=== PATIENT | male | born 1945 | race Hispanic/Latino ===

== ENCOUNTER 2017-11-29 17:46 | Inpatient (IN) | payer BC, MEDICARE ==
[2017-11-29] MEDS ORDERED: Albuterol-Ipratrop 3 mg / 0.5 (3 ml) UD IH STA (18:13)
[2017-11-29] MEDS ORDERED: Piperacillin/Tazobact 3.375 GM in Sodium Chloride 0.9% 100 ML IVPB STA (18:16)
[2017-11-29] MEDS ORDERED: Sodium Chloride 0.9% 1,000 ML IV STA (18:17)
[2017-11-29] MEDS ORDERED: Albuterol-Ipratrop 3 mg / 0.5 (3 ml) UD ONE (18:28)
[2017-11-29] MEDS ORDERED: Piperacillin/Tazobact 3.375 gm Inj IVPB ONE (18:28)
[2017-11-29 18:49] LABS: BASO # 0.1 K/uL (0.0-0.2); BASO % 0.4 % (0.0-2.0); EOS % 0.3 % (0.0-4.0); HEMOGLOBIN 14.3 g/dL (12.0-18.0); LYMPH # 0.7 K/uL (1.0-4.3); LYMPH % 5.5 % (20.0-40.0); MEAN CELL VOLUME 91.1 fl (80.0-94.0); MEAN CORPUSCULAR HEMOGLOBIN 31.5 pg (27.0-31.0); MEAN CORPUSCULAR HGB CONC 34.5 g/dL (33.0-37.0); MEAN PLATELET VOLUME 7.5 fl (7.2-11.7); MONO # 0.7 K/uL (0.0-0.8); MONO % 5.5 % (0.0-10.0); NEUT # 11.5 K/uL (1.8-7.0); NEUT % 88.3 % (50.0-75.0); PLATELET COUNT 306 K/uL (130-400); RBC 4.56 Mil/uL (4.40-5.90); WHITE BLOOD COUNT 13.1 K/uL (4.8-10.8)
--- NOTE | 2017-11-29 18:53 | ED PDOC ---
HPI: CCC, URI, Sore Throat Time Seen by Provider: 11/29/17 18:07 Chief Complaint (Nursing): Shortness Of Breath Chief Complaint (Provider): Cough History Per: Patient History/Exam Limitations: no limitations Onset/Duration Of Symptoms: Hrs Current Symptoms Are (Timing): Still Present Associated Symptoms: Fever, Sputum Additional Complaint(s): 72 year old male with PMHx of COPD presents to the ED for an evaluation of cough onset this morning. Patient reports of productive cough with green sputum and associated symptoms of fever and shortness of breath. He denies chest pain. PMD: Ravi Torres Past Medical History Reviewed: Historical Data, Nursing Documentation, Vital Signs Vital Signs: Last Vital Signs Temp 102.7 F H 11/29/17 17:53 Pulse 115 H 11/29/17 17:53 Resp 22 11/29/17 17:53 BP 130/76 11/29/17 17:53 Pulse Ox 90 L 11/29/17 19:01 - Medical History PMH: Asthma, COPD Denies: Chronic Kidney Disease - Family History Family History: States: Hypertension - Home Medications Home Medications: Ambulatory Orders Medication Instructions Recorded Albuterol HFA [Ventolin HFA 90 1 puff IH BID PRN 09/21/15 mcg/actuation (8 g)] Budesonide/Formoterol Fumarate 1 aer IH BID PRN 09/21/15 [Symbicort 160-4.5 Mcg Inhaler] Promethazine HCl/Codeine 2 tsp PO Q4 PRN 09/21/15 [Prometh-Codein 6.25-10 mg/5 ml] Amoxicillin/Potassium Clav 1 each PO BID #10 tablet 09/29/15 [Augmentin 875-125 Tablet] Prednisone 30 mg PO DAILY #2 09/29/15 - Allergies Allergies/Adverse Reactions: Allergies Allergy/AdvReac Type Severity Reaction Status Date / Time No Known Allergies Allergy Verified 09/21/15 19:06 Review of Systems ROS Statement: Except As Marked, All Systems Reviewed And Found Negative Constitutional: Positive for: Fever Cardiovascular: Negative for: Chest Pain Respiratory: Positive for: Cough, Shortness of Breath Physical Exam - Reviewed Nursing Documentation Reviewed: Yes Vital Signs Reviewed: Yes - Physical Exam Appears: Positive for: Non-toxic, No Acute Distress Head Exam: Positive for: ATRAUMATIC, NORMAL INSPECTION, NORMOCEPHALIC Skin: Positive for: Normal Color, Warm, DRY Cardiovascular/Chest: Positive for: Regular Rate, Rhythm, Tachycardia Respiratory: Positive for: Other (Bronchitis bilateral). Negative for: Respiratory Distress Gastrointestinal/Abdominal: Positive for: Soft. Negative for: Tenderness Extremity: Positive for: Normal ROM. Negative for: Tenderness, Swelling Neurologic/Psych: Positive for: Alert, Oriented (x3). Negative for: Motor/ Sensory Deficits - Laboratory Results Result Diagrams: 11/29/17 18:37 11/29/17 18:37 - ECG O2 Sat by Pulse Oximetry: 90 (RA) Pulse Ox Interpretation: Normal Medical Decision Making Medical Decision Making: Time: 1812 Initial Plan: --VBG Shock Panel --CMP --ED Urine Dipstick --CBC w/ Differential --Chest Two Views --Duoneb 3mg/ 0.5mg (3ml) --Normal Saline 1000 mls/hr --Vancomycin Inj --Zosyn 3.375 gm --Blood Culture --Peak Flow Pre/Post --Reevaluation Scribe Attestation: Documented by Carlotta Francis, acting as a scribe for Stephane Kaur MD Provider Scribe Attestation: All medical record entries made by the Scribe were at my direction and personally dictated by me. I have reviewed the chart and agree that the record accurately reflects my personal performance of the history, physical exam, medical decision making, and the department course for this patient. I have also personally directed, reviewed, and agree with the discharge instructions and disposition. Disposition - Clinical Impression Clinical Impression: PNA (pneumonia), Sepsis - Patient ED Disposition Is Patient to be Admitted: Yes - Disposition Disposition Time: 20:00 Condition: FAIR - Pt Status Changed To: Hospital Disposition Of: Inpatient - Admit Certification Admit to Inpatient:: After my assessment, the patient will require hospitalization for at least two midnights. This is because of the severity of symptoms shown, intensity of services needed, and/or the medical risk in this patient being treated as an outpatient. - POA Present On Arrival: None
[2017-11-29 18:58] LABS: ALT/SGPT 22 U/L (21-72); AST/SGOT 33 U/L (17-59); BLOOD UREA NITROGEN 12 mg/dl (9-20); CALCIUM 8.6 mg/dL (8.4-10.2); GFR NON-AFRICAN AMERICAN > 60
[2017-11-29] MEDS ORDERED: Vancomycin 1 g Inj ONE (19:51)
[2017-11-29 20:49] LABS: BANDS 5 % (0-2); HYPOCHROMIC SLIGHT; LYMPHOCYTE 7 % (20-50); MONOCYTE 5 % (0-10); NEUTROPHIL 83 % (42-75); PLATELET ESTIMATE NORMAL (NORMAL); TOTAL CELLS COUNTED 100; TOXIC GRANULATION PRESENT
[2017-11-29] MEDS ORDERED: Sodium Chloride 3% for Inhalation 4 ML VIAL.NEB IH PRN (21:33)
[2017-11-29] MEDS ORDERED: methylPREDNISolone 30 MG in Sodium Chloride 0.9% 50 ML IVP SCH (21:45)
[2017-11-29] MEDS: Sodium Chloride 0.9% 1,000 ML IV SCH (21:53)
[2017-11-29] MEDS: MethylPREDNISolone 40 mg Vial IVP SCH (22:01)
[2017-11-30] MEDS: Piperacillin/Tazobact 3.375 GM in Sodium Chloride 0.9% 100 ML IVPB SCH ×3 (01:44→17:33)
[2017-11-30 06:05] LABS: MEAN CELL VOLUME 92.9 fl (80.0-94.0); MEAN CORPUSCULAR HGB CONC 34.5 g/dL (33.0-37.0); RBC 4.38 Mil/uL (4.40-5.90); RED CELL DISTRIBUTION WIDTH 13.4 % (11.5-14.5); WHITE BLOOD COUNT 6.3 K/uL (4.8-10.8)
[2017-11-30 06:18] LABS: LDL CHOLESTEROL 65 mg/dL (0-129)
[2017-11-30 06:24] LABS: T4 5.14 ug/dl (5.5-11.0)
[2017-11-30] MEDS: Albuterol-Ipratrop 3 mg / 0.5 (3 ml) UD INH SCH ×7 (06:26→22:59)
[2017-11-30 06:48] LABS: ALBUMIN 3.7 g/dL (3.5-5.0); ALT/SGPT 23 U/L (21-72); AST/SGOT 24 U/L (17-59); BLOOD UREA NITROGEN 10 mg/dl (9-20); CALCIUM 8.5 mg/dL (8.4-10.2); GFR NON-AFRICAN AMERICAN > 60; HDL CHOLESTEROL 41 MG/DL (30-70)
--- NOTE | 2017-11-30 08:50 | RAD ---
Date of service: 11/29/2017 HISTORY: cough COMPARISON: Portable chest 09/27/2015. TECHNIQUE: Chest PA and lateral FINDINGS: LUNGS: Cicatrization of the right apex is again appreciate with bilateral diffuse pulmonary fibrotic changes reiterated if not increased. Hyperexpansion of the left lung is again identified. Borderline medial basilar airspace disease with none seen at the right in the interval. Shift of the mediastinum toward the right is stable based gross on right apical pulmonary fibrosis. PLEURA: No significant pleural effusion identified. No pneumothorax apparent. CARDIOVASCULAR: Normal. OSSEOUS STRUCTURES: No significant abnormalities. VISUALIZED UPPER ABDOMEN: Normal. OTHER FINDINGS: None. IMPRESSION: Borderline medial basilar airspace disease left side. Gross pulmonary fibrosis likely increased with right apical cicatrization reiterated.
[2017-11-30] MEDS: MethylPREDNISolone 40 mg Vial IVP SCH ×2 (09:13→21:06)
--- NOTE | 2017-11-30 14:25 | CT ---
Date of service: 11/30/2017 PROCEDURE: CT Chest without contrast HISTORY: pneumonia COMPARISON: Chest CT with contrast 09/21/2015. TECHNIQUE: Contiguous axial images were obtained through the chest without intravenous contrast enhancement. Sagittal and coronal reconstructions were performed. Radiation dose (DLP): 431.79 mGy-cm. This CT exam was performed using one or more of the following dose reduction techniques: Automated exposure control, adjustment of the mA and/or kV according to patient size, and/or use of iterative reconstruction technique. FINDINGS: LUNGS: Extensive cystic bronchiectasis is seen at affecting the upper greater than lower lobes once again. Air-fluid levels are acute occasionally associated with cystic bronchiectasis at the bilateral lungs, most obvious in a small air-filled structure lateral to the esophagus and posterior the trachea best seen image 31 series 3. Alternative to right upper lobe cyst is the possibility of an esophageal diverticulum though this is not favored. Marked volume loss at the right upper lobe is again appreciate with a right upper lobe nearly completely destroyed by cystic bronchiectasis. Hyperinflation of the left upper lobe nearly simulates emphysema. Fibrotic changes are intermixed with this overall pattern throughout all lobes and the prior infiltrates affecting the left greater than right lower lobes appear to of largely resolved with borderline reticular changes seen at the bilateral lower lobes which may not be acute. MEDIASTINUM: Unremarkable thoracic aorta. No aneurysm. Normal sized heart. Main pulmonary artery measures 3.9 cm suggesting pulmonary artery hypertension. Clinically correlate further. No pulmonary venous congestion. No lymphadenopathy. PLEURA: No pleural fluid. No pneumothorax. BONES: No fracture. No destructive lesion. UPPER ABDOMEN: Prior cholecystectomy reiterated. OTHER FINDINGS: None. IMPRESSION: 1. Reiteration of extensive cystic bronchiectasis with upper lobe predominance potentially reflecting tuberculosis origin though there is a very broad differential diagnosis varying from etiologies such is allergic bronchopulmonary aspergillosis rheumatoid arthritis or automated processes and countless other etiologies. Clinically correlate further. Prior alveolar infiltrates appear to have resolved in the interval though limited reticular changes are seen at the bilateral lower lobes potentially reflecting atypical pneumonitis. Further clinical correlation is recommended. 2. Incidental prior cholecystectomy noted.
--- NOTE | 2017-11-30 15:57 | CP.PCM.HP ---
History of Present Illness - History of Present Illness History of Present Illness: CC: SOB. 72 y/o M, Hx of COPD, PE, NSTEMI, walk in to [facility] on 11/29/17, to be evaluated for moderate SOB, associated to sudden onset of intermittent productive cough with yellowish sputum, non bloody and fever and chills, while in the ED TMAx 102.7 . Onset AM DOA. Pt using respiratory inhalers at home with no relief. As per PT, He was hospitalized in [place] ( [place]) [place] for TB at 17 y/o and remained in the hospital x 2 years, after, 2 more years later, he was re- admitted for recurrent TB one more year, after that, he denied respiratory symptoms until 1987 that he stated having chronic Bronchitis. 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 Worsening symptoms: RUIZ. Found with chronic changes lower lobe Pneumonitis b/l lobes on CT. Aggravated factor: Exercise. Pt denied: CP, syncope, numbness, dizziness, hemoptysis, n/v/d, abdominal pain , urinary symptoms, recent travel out of [facility]. Present on Admission - Present on Admission Any Indicators Present on Admission: No Review of Systems - Constitutional Constitutional: Chills, Fever - EENT Eyes: Other (negative) Ears: Other (negative) Nose/Mouth/Throat: Other (negative) - Cardiovascular Cardiovascular: Other (negative) - Respiratory Respiratory: Cough, Dyspnea, Dyspnea on Exertion, Chest Congestion, Change in Mucous Color - Gastrointestinal Gastrointestinal: Other (negative) - Genitourinary Genitourinary: Other (negative) - Musculoskeletal Musculoskeletal: Other (negative) - Integumentary Integumentary: Other (negative) - Neurological Neurological: Other (negative) - Psychiatric Psychiatric: Other (negative) - Endocrine Endocrine: Other (negative) - Hematologic/Lymphatic Hematologic: Other (negative) Past Patient History - Infectious Disease Hx of Infectious Diseases: None - Past Medical History & Family History Past Medical History?: Yes Pertinent Family History: Unknown - Past Social History Smoking Status: Former Smoker Alcohol: None Drugs: Denies Home Situation {Lives}: Alone - CARDIAC Hx Cardiac Disorders: Yes (Hx NSTEMI) - PULMONARY Hx Respiratory Disorders: Yes Hx Asthma: Yes Hx Chronic Obstructive Pulmonary Disease (COPD): Yes Hx Pneumonia: Yes - NEUROLOGICAL Hx Neurological Disorder: No - HEENT Hx HEENT Problems: No - RENAL Hx Chronic Kidney Disease: No - ENDOCRINE/METABOLIC Hx Endocrine Disorders: No - HEMATOLOGICAL/ONCOLOGICAL Hx Blood Disorders: No - INTEGUMENTARY Hx Dermatological Problems: No - MUSCULOSKELETAL/RHEUMATOLOGICAL Hx Musculoskeletal Disorders: No Hx Falls: No - GASTROINTESTINAL Hx Gastrointestinal Disorders: No - GENITOURINARY/GYNECOLOGICAL Hx Genitourinary Disorders: No - PSYCHIATRIC Hx Psychophysiologic Disorder: No Hx Substance Use: No - SURGICAL HISTORY Hx Surgeries: No - ANESTHESIA Hx Anesthesia: No Hx Anesthesia Reactions: No Meds Allergies/Adverse Reactions: Allergies Allergy/AdvReac Type Severity Reaction Status Date / Time No Known Allergies Allergy Verified 09/21/15 19:06 Physical Exam - Constitutional Appears: No Acute Distress - Head Exam Head Exam: NORMAL INSPECTION - Eye Exam Eye Exam: PERRL - ENT Exam ENT Exam: Normal Exam - Neck Exam Neck exam: Positive for: Normal Inspection - Respiratory Exam Respiratory Exam: Decreased Breath Sounds (at bases), Rhonchi - Cardiovascular Exam Cardiovascular Exam: REGULAR RHYTHM - GI/Abdominal Exam GI & Abdominal Exam: Normal Bowel Sounds, Soft - Extremities Exam Extremities exam: Positive for: normal inspection - Back Exam Back exam: NORMAL INSPECTION - Neurological Exam Neurological exam: Alert, Oriented x3 Additional comments: No motor/sensory deficit. - Psychiatric Exam Psychiatric exam: Normal Mood - Skin Skin Exam: Warm Results - Vital Signs Recent Vital Signs: Last Vital Signs Temp 97.4 F L 11/30/17 12:12 Pulse 92 H 11/30/17 12:12 Resp 18 11/30/17 12:12 BP 117/68 11/30/17 12:12 Pulse Ox 95 11/30/17 12:12 reviewed Pam.Ritu - Labs Result Diagrams: 11/30/17 05:20 11/30/17 05:20 Labs: Laboratory Results - last 24 hr 11/29/17 11/29/17 11/30/17 18:37 18:37 05:20 WBC 13.1 H D 6.3 D RBC 4.56 4.38 L Hgb 14.3 14.0 Hct 41.5 40.7 MCV 91.1 D 92.9 MCH 31.5 H 32.0 H MCHC 34.5 34.5 RDW 14.0 13.4 Plt Count 306 D 273 MPV 7.5 Neut % (Auto) 88.3 H Lymph % (Auto) 5.5 L [place] % (Auto) 5.5 Eos % (Auto) 0.3 Baso % (Auto) 0.4 Neut # (Auto) 11.5 H Lymph # (Auto) 0.7 L [place] # (Auto) 0.7 Eos # (Auto) 0.0 Baso # (Auto) 0.1 Neutrophils % (Manual) 83 H Band Neutrophils % 5 H Lymphocytes % (Manual) 7 L Monocytes % (Manual) 5 Toxic Granulation Present Platelet Estimate Normal Hypochromasia (manual) Slight Sodium 131 L Potassium 4.6 Chloride 95 L Carbon Dioxide 31 H Anion Gap 10 BUN 12 Creatinine 0.6 L Est GFR ( Amer) > 60 Est GFR (Non-Af Amer) > 60 Random Glucose 129 H Calcium 8.6 Total Bilirubin 1.0 AST 33 ALT 22 Alkaline Phosphatase 105 Total Protein 7.9 Albumin 4.0 Globulin 3.9 Albumin/Globulin Ratio 1.0 Triglycerides Cholesterol LDL Cholesterol Direct HDL Cholesterol Thyroxine (T4) TSH 3rd Generation 11/30/17 05:20 WBC RBC Hgb Hct MCV MCH MCHC RDW Plt Count MPV Neut % (Auto) Lymph % (Auto) [place] % (Auto) Eos % (Auto) Baso % (Auto) Neut # (Auto) Lymph # (Auto) [place] # (Auto) Eos # (Auto) Baso # (Auto) Neutrophils % (Manual) Band Neutrophils % Lymphocytes % (Manual) Monocytes % (Manual) Toxic Granulation Platelet Estimate Hypochromasia (manual) Sodium 135 Potassium 4.0 Chloride 98 Carbon Dioxide 33 H Anion Gap 8 L BUN 10 Creatinine 0.6 L Est GFR ( Amer) > 60 Est GFR (Non-Af Amer) > 60 Random Glucose 154 H Calcium 8.5 Total Bilirubin 0.6 AST 24 ALT 23 Alkaline Phosphatase 88 Total Protein 7.3 Albumin 3.7 Globulin 3.6 Albumin/Globulin Ratio 1.0 Triglycerides 47 D Cholesterol 133 LDL Cholesterol Direct 65 HDL Cholesterol 41 Thyroxine (T4) 5.14 L TSH 3rd Generation 0.39 L reviewed J.P. - Imaging and Cardiology CT scan - chest Status: Report reviewed by me (J.P.) Chest x-ray Status: Report reviewed by me (J.P.) Assessment & Plan (1) PNA (pneumonia) Status: Acute Priority: High Comment: B/L lobes (2) COPD exacerbation Status: Acute Priority: High - Assessment and Plan (Free Text) Plan: F/U Blood and Sputum C-S, continue O2 NC 2L/M, Zosyn, Vanco, Duoneb, Solu- Medrol and rest of Tx, - Date & Time Date: 11/30/17 Time: 11:00
[2017-11-30] MEDS: Sodium Chloride 0.9% 1,000 ML IV SCH (17:34)
[2017-12-01] MEDS: Piperacillin/Tazobact 3.375 GM in Sodium Chloride 0.9% 100 ML IVPB SCH ×3 (00:44→16:05)
[2017-12-01] MEDS: Albuterol-Ipratrop 3 mg / 0.5 (3 ml) UD INH SCH ×6 (05:00→23:38)
[2017-12-01] MEDS: MethylPREDNISolone 40 mg Vial IVP SCH ×2 (09:00→22:41)
--- NOTE | 2017-12-01 12:51 | CP.PCM.PN ---
Subjective - Date & Time of Evaluation Date of Evaluation: 12/01/17 Time of Evaluation: 10:10 - Subjective Subjective: F/U PNA cough yellowish color , chest congestion,no SOB with O2 NC Objective - Vital Signs/Intake and Output Vital Signs (last 24 hours): Temp Pulse Resp BP Pulse Ox 98.1 F 85 18 106/56 L 97 12/01/17 12:23 12/01/17 12:23 12/01/17 12:23 12/01/17 12:23 12/01/17 12:23 - Medications Medications: Current Medications Albuterol/Ipratropium (Duoneb 3 Mg/0.5 Mg (3 Ml) Ud) 3 ml INH RQ4 [facility]IKO Last Admin: 12/01/17 11:30 Dose: 3 ml Vancomycin HCl 1 gm/ Sodium (Chloride) 250 mls @ 166.667 mls/hr IVPB Q12 KEIKO PRN Reason: Protocol Last Admin: 12/01/17 08:39 Dose: 166.667 mls/hr Piperacillin Sod/Tazobactam (Sod 3.375 gm/ Sodium Chloride) 100 mls @ 100 mls/ hr IVPB Q8 KEIKO PRN Reason: Protocol Last Admin: 12/01/17 08:37 Dose: 100 mls/hr Methylprednisolone (Solu-Medrol) 30 mg IVP Q12[facility] Last Admin: 12/01/17 09:00 Dose: 30 mg - Labs Labs: 11/30/17 05:20 11/30/17 05:20 - Constitutional Appears: No Acute Distress - Head Exam Head Exam: NORMAL INSPECTION - Eye Exam Eye Exam: PERRL - ENT Exam ENT Exam: Normal Exam - Neck Exam Neck Exam: Normal Inspection - Respiratory Exam Respiratory Exam: Decreased Breath Sounds (at bases), Rhonchi - Cardiovascular Exam Cardiovascular Exam: REGULAR RHYTHM - GI/Abdominal Exam GI & Abdominal Exam: Soft, Normal Bowel Sounds - Extremities Exam Extremities Exam: Normal Inspection - Back Exam Back Exam: NORMAL INSPECTION - Neurological Exam Neurological Exam: Alert, Oriented x3 Additional comments: No motor/sensory deficit. - Psychiatric Exam Psychiatric exam: Normal Mood - Skin Skin Exam: Warm Assessment and Plan (1) PNA (pneumonia) Status: Acute (2) COPD exacerbation Status: Acute
--- NOTE | 2017-12-01 14:04 | PQF ---
PROVIDER RESPONSE TEXT: Provider was unable to determine a response for this query. REVIEWER QUERY TEXT: Pneumonia Specificity Pneumonia is documented in the Medical Record. Please specify the type of pneumonia and the causative organism (includes probable or suspected) if known: Such as: Type: -- Aspiration pneumonia (please also specify the aspirate) -- Bacterial (please document suspected or probable organism) -- Bronchopneumonia (please document suspected or probable organism) -- Interstitial pneumonia -- Organizing pneumonia / BOOP -- RSV -- Tuberculosis, pulmonary -- Viral -- Other, please specify WBC:13.1->6.3 left shift: Band 5 ER: V/S record: Temp: 102.7Pulse 115 Respirations: 22 patient reports of productive cough with green sputum and associated symptoms of fever and shortness of breath. Cardiovascular/Chest: Positive for::--Tachycardia O2 Sat by Pulse Oximetry: 90 (RA) Clinical Impression: PNA (pneumonia), Sepsis POA: None Admission order: Admission dx.: Pneumonia, Sepsis, COPD H and P: fever and chills, while in the ED TMAx 102.7: patient reports a . Hx of. TB (1) PNA (pneumonia) Status: Acute Priority: High Comment: B/L lobes (2) COPD exacerbation Status: Acute Priority: High Plan: F/U Blood and Sputum C-S, continue O2 NC 2L/M, Zosyn, Vanco, Duoneb, Solu-Medrol and rest of Tx The patient's Clinical Indicators include: xx Query created by: Xin Doan on 12/01/2017 10:03 AM Electronically signed by: Ravi Torres MD 12/01/2017 2:01 PM
--- NOTE | 2017-12-01 14:04 | PQF ---
PROVIDER RESPONSE TEXT: Sepsis ruled out REVIEWER QUERY TEXT: Conflicting Documentation Clarification A single mention of Sepsis appears in the record. Please document if the condition is: -- Confirmed and current -- Confirmed, treated and resolved -- Ruled out -- Other, please specify WBC:13.1->6.3 left shift: Band 5 ER: V/S record: Temp: 102.7Pulse 115 Respirations: 22 patient reports of productive cough with green sputum and associated symptoms of fever and shortness of breath. Cardiovascular/Chest: Positive for::--Tachycardia O2 Sat by Pulse Oximetry: 90 (RA) Clinical Impression: PNA (pneumonia), Sepsis POA: None Admission order: Admission dx.: Pneumonia, Sepsis, COPD H and P: fever and chills, while in the ED TMAx 102.7: as per patient: Hx. TB (1) PNA (pneumonia) Status: Acute Priority: High Comment: B/L lobes (2) COPD exacerbation Status: Acute Priority: High Plan: F/U Blood and Sputum C-S, continue O2 NC 2L/M, Zosyn, Vanco, Duoneb, Solu-Medrol and rest of Tx , The patient's Clinical Indicators include: xx Query created by: Xin Doan on 12/01/2017 9:59 AM Electronically signed by: Ravi Torres MD 12/01/2017 2:01 PM
[2017-12-02] MEDS: Piperacillin/Tazobact 3.375 GM in Sodium Chloride 0.9% 100 ML IVPB SCH ×3 (00:18→16:42)
[2017-12-02] MEDS: Albuterol-Ipratrop 3 mg / 0.5 (3 ml) UD INH SCH ×6 (05:11→23:11)
[2017-12-02] MEDS: MethylPREDNISolone 40 mg Vial IVP SCH ×2 (10:08→21:31)
--- NOTE | 2017-12-02 16:56 | CP.PCM.PN ---
Subjective - Date & Time of Evaluation Date of Evaluation: 12/02/17 Time of Evaluation: 15:40 - Subjective Subjective: F/U PNA less chest congestion, less cough , yellowish phlegms , no SOB Objective - Vital Signs/Intake and Output Vital Signs (last 24 hours): Temp Pulse Resp BP Pulse Ox 98.1 F 87 20 130/76 97 12/02/17 15:58 12/02/17 15:58 12/02/17 15:58 12/02/17 15:58 12/02/17 15:58 - Medications Medications: Current Medications Albuterol/Ipratropium (Duoneb 3 Mg/0.5 Mg (3 Ml) Ud) 3 ml INH RQ4 [facility] Last Admin: 12/02/17 15:08 Dose: 3 ml Vancomycin HCl 1 gm/ Sodium (Chloride) 250 mls @ 166.667 mls/hr IVPB Q12 [facility]IKO PRN Reason: Protocol Last Admin: 12/02/17 10:08 Dose: 166.667 mls/hr Piperacillin Sod/Tazobactam (Sod 3.375 gm/ Sodium Chloride) 100 mls @ 100 mls/ hr IVPB Q8 KEIKO PRN Reason: Protocol Last Admin: 12/02/17 16:42 Dose: 100 mls/hr Lactulose (Enulose) 20 gm PO DAILY PRN PRN Reason: Constipation Methylprednisolone (Solu-Medrol) 30 mg IVP Q12H [facility] Last Admin: 12/02/17 10:08 Dose: 30 mg - Labs Labs: 11/30/17 05:20 11/30/17 05:20 - Constitutional Appears: No Acute Distress - Head Exam Head Exam: NORMAL INSPECTION - Eye Exam Eye Exam: PERRL - ENT Exam ENT Exam: Normal Exam - Neck Exam Neck Exam: Normal Inspection - Respiratory Exam Respiratory Exam: Decreased Breath Sounds (at bases), Rhonchi (scattered) - Cardiovascular Exam Cardiovascular Exam: REGULAR RHYTHM - GI/Abdominal Exam GI & Abdominal Exam: Soft, Normal Bowel Sounds - Extremities Exam Extremities Exam: Normal Inspection - Back Exam Back Exam: NORMAL INSPECTION - Neurological Exam Neurological Exam: Alert, Awake, Oriented x3. absent: Motor Sensory Deficit - Psychiatric Exam Psychiatric exam: Normal Mood - Skin Skin Exam: Warm Assessment and Plan (1) PNA (pneumonia) Status: Acute (2) COPD exacerbation Status: Acute
[2017-12-03] MEDS: Piperacillin/Tazobact 3.375 GM in Sodium Chloride 0.9% 100 ML IVPB SCH ×3 (00:48→17:05)
[2017-12-03] MEDS: Albuterol-Ipratrop 3 mg / 0.5 (3 ml) UD INH SCH ×6 (05:12→23:23)
--- NOTE | 2017-12-03 08:19 | CARD ---
APPROVED REPORT Date of service: 12/02/2017 EKG Measurement Heart [id number] <Conclusion> Normal sinus rhythm Possible Left atrial enlargement Borderline ECG
[2017-12-03] MEDS: MethylPREDNISolone 40 mg Vial IVP SCH ×2 (09:04→21:26)
--- NOTE | 2017-12-03 18:51 | CP.PCM.PN ---
Subjective - Date & Time of Evaluation Date of Evaluation: 12/03/17 Time of Evaluation: 13:30 - Subjective Subjective: less chest congestion and cough with scanty yellowish flegm Objective - Vital Signs/Intake and Output Vital Signs (last 24 hours): Temp Pulse Resp BP Pulse Ox 97.9 F 87 20 124/71 96 12/03/17 15:40 12/03/17 15:40 12/03/17 15:40 12/03/17 15:40 12/03/17 15:40 Intake and Output: 12/03/17 12/03/17 06:59 18:59 Intake Total 1650 Balance 1650 - Medications Medications: Current Medications Albuterol/Ipratropium (Duoneb 3 Mg/0.5 Mg (3 Ml) Ud) 3 ml INH RQ4 [facility] Last Admin: 12/03/17 15:27 Dose: 3 ml Piperacillin Sod/Tazobactam (Sod 3.375 gm/ Sodium Chloride) 100 mls @ 100 mls/ hr IVPB Q8 [facility]IKO PRN Reason: Protocol Last Admin: 12/03/17 17:05 Dose: 100 mls/hr Lactulose (Enulose) 20 gm PO DAILY PRN PRN Reason: Constipation Last Admin: 12/02/17 18:21 Dose: 20 gm Methylprednisolone (Solu-Medrol) 30 mg IVP Q12H [facility] Last Admin: 12/03/17 09:04 Dose: 30 mg - Labs Labs: 11/30/17 05:20 11/30/17 05:20 - Constitutional Appears: No Acute Distress - Head Exam Head Exam: NORMAL INSPECTION - Eye Exam Eye Exam: PERRL - ENT Exam ENT Exam: Normal Exam - Neck Exam Neck Exam: Normal Inspection - Respiratory Exam Respiratory Exam: Decreased Breath Sounds (at bases), Wheezes (scattere) - Cardiovascular Exam Cardiovascular Exam: REGULAR RHYTHM - GI/Abdominal Exam GI & Abdominal Exam: Soft, Normal Bowel Sounds - Extremities Exam Extremities Exam: Normal Inspection - Back Exam Back Exam: NORMAL INSPECTION - Neurological Exam Neurological Exam: Alert, CN II-XII Intact, Oriented x3. absent: Motor Sensory Deficit - Psychiatric Exam Psychiatric exam: Normal Affect, Normal Mood - Skin Skin Exam: Warm Assessment and Plan (1) PNA (pneumonia) Status: Acute (2) COPD exacerbation Status: Acute - Assessment and Plan (Free Text) Plan: Sputum G (neg) rods, f/u Sensitivity continue Zosyn, DuoNeb, SoluMedrol
[2017-12-04] MEDS: Piperacillin/Tazobact 3.375 GM in Sodium Chloride 0.9% 100 ML IVPB SCH ×3 (00:58→17:08)
[2017-12-04] MEDS: Albuterol-Ipratrop 3 mg / 0.5 (3 ml) UD INH SCH ×6 (05:40→23:26)
[2017-12-04] MEDS: MethylPREDNISolone 40 mg Vial IVP SCH ×2 (09:28→21:00)
--- NOTE | 2017-12-04 15:57 | CARD ---
APPROVED REPORT Date of service: 12/04/2017 EXAM: Two-dimensional and M-mode echocardiogram with Doppler and color Doppler. Other Information Quality : FairRhythm : NSR Technically limited study due to COPD INDICATION Abnormal EKG/Arrhythmia COPD 2D DIMENSIONS IVSd1.10 (0.7-1.1cm)LVDd3.66 (3.9-5.9cm) PWd1.10 (0.7-1.1cm)IVSs1.33 (0.8-1.2cm) LVDs2.70 (2.5-4.0cm)FS (%) 26.3 % PWs1.38 (0.8-1.2cm) M-Mode DIMENSIONS Left Atrium (MM)2.81 (2.5-4.0cm)IVSd1.10 (0.7-1.1cm) Aortic Root3.09 (2.2-3.7cm)LVDd4.33 (4.0-5.6cm) Aortic Cusp Exc.1.82 (1.5-2.0cm)PWd1.13 (0.7-1.1cm) IVSs2.12 cmFS (%) 41 % LVDs2.54 (2.0-3.8cm)PWs1.57 cm Aortic Valve AoV Peak Xmajxrgp842.2cm/sAoV VTI25.3cmAO Peak GR.9mmHg LVOT Peak Drfbtgku182.3cm/sLVOT VTI26.31cmAO Mean GR.4mmHg Mitral Valve MV E Gaxzlqsi57.4cm/sMV DECEL [id number] A Rjlvffgf07.8cm/s MV DEL55bkV/A ratio0.8MVA (PHT)2.60cm2 TDI Lateral E' Peak V7.17cm/sMedial E' Peak V6.27cm/sE/Lateral E'9.5 E/Medial E'10.9 LEFT VENTRICLE The left ventricle is normal size. There is normal left ventricular wall thickness. The left ventricular systolic function is normal. The estimated ejection fraction is 60-65% No regional wall motion abnormalities noted.. Transmitral Doppler flow pattern is Grade I-abnormal relaxation pattern. No left ventricle thrombus noted on this study. There is no ventricular septal defect visualized. There is no mass noted in the left ventricle. RIGHT VENTRICLE The right ventricle is normal size. There is normal right ventricular wall thickness. The right ventricular systolic function is normal. ATRIA The left atrium size is normal. The right atrium size is normal. The interatrial septum is intact with no evidence for an atrial septal defect. AORTIC VALVE The aortic valve is normal in structure. No aortic regurgitation is present. There is no aortic valvular stenosis. MITRAL VALVE The mitral valve is normal in structure. There is no mitral valve stenosis. There is no mitral valve regurgitation noted. TRICUSPID VALVE The tricuspid valve is normal in structure. There is no tricuspid valve regurgitation noted. PULMONIC VALVE The pulmonary valve is normal in structure. There is no pulmonic valvular regurgitation. GREAT VESSELS The aortic root is normal in size. The ascending aorta is normal in size. The pulmonary artery is normal. The IVC is normal in size and collapses >50% with inspiration. PERICARDIAL EFFUSION There is no pericardial effusion. <Conclusion> Normal LV systolic function wtih doppler hemodynamics consistent with abnormal relaxation Otherwise normal transthoracic echocardiogram The estimated ejection fraction is 60-65%
--- NOTE | 2017-12-04 16:00 | CP.PCM.PN ---
Subjective - Date & Time of Evaluation Date of Evaluation: 12/04/17 Time of Evaluation: 13:30 - Subjective Subjective: F/U PNA cough, chest congestion improved Objective - Vital Signs/Intake and Output Vital Signs (last 24 hours): Temp Pulse Resp BP Pulse Ox 98.2 F 79 20 132/82 97 12/04/17 15:40 12/04/17 15:40 12/04/17 15:40 12/04/17 15:40 12/04/17 15:40 - Medications Medications: Current Medications Albuterol/Ipratropium (Duoneb 3 Mg/0.5 Mg (3 Ml) Ud) 3 ml INH RQ4 [facility] Last Admin: 12/04/17 15:50 Dose: 3 ml Piperacillin Sod/Tazobactam (Sod 3.375 gm/ Sodium Chloride) 100 mls @ 100 mls/ hr IVPB Q8 [facility] PRN Reason: Protocol Last Admin: 12/04/17 08:47 Dose: 100 mls/hr Lactulose (Enulose) 20 gm PO DAILY PRN PRN Reason: Constipation Last Admin: 12/04/17 14:25 Dose: 20 gm Methylprednisolone (Solu-Medrol) 30 mg IVP Q12H [facility] Last Admin: 12/04/17 09:28 Dose: 30 mg Promethazine HCl (Phenergan Syrup) 12.5 mg PO Q6 [facility] - Labs Labs: 11/30/17 05:20 11/30/17 05:20 - Constitutional Appears: No Acute Distress - Head Exam Head Exam: NORMAL INSPECTION - Eye Exam Eye Exam: PERRL - ENT Exam ENT Exam: Normal Exam - Neck Exam Neck Exam: Normal Inspection - Respiratory Exam Respiratory Exam: Decreased Breath Sounds (at bases), Rhonchi - Cardiovascular Exam Cardiovascular Exam: REGULAR RHYTHM - GI/Abdominal Exam GI & Abdominal Exam: Soft, Normal Bowel Sounds - Extremities Exam Extremities Exam: Normal Inspection - Back Exam Back Exam: NORMAL INSPECTION - Neurological Exam Neurological Exam: Alert, Oriented x3. absent: Motor Sensory Deficit - Psychiatric Exam Psychiatric exam: Normal Mood - Skin Skin Exam: Warm Assessment and Plan (1) PNA (pneumonia) Status: Acute (2) COPD exacerbation Status: Acute - Assessment and Plan (Free Text) Plan: Continue DuoNeb, SoluMedrol, Zosyn and rest of treatment
[2017-12-04] MEDS: Promethazine 12.5 mg/10 ml Syrup PO SCH ×3 (17:09→21:00)
[2017-12-05] MEDS: Piperacillin/Tazobact 3.375 GM in Sodium Chloride 0.9% 100 ML IVPB SCH ×2 (00:18→08:38)
[2017-12-05] MEDS: Promethazine 12.5 mg/10 ml Syrup PO SCH ×4 (03:52→21:08)
[2017-12-05] MEDS: Albuterol-Ipratrop 3 mg / 0.5 (3 ml) UD INH SCH ×6 (04:19→23:45)
[2017-12-05] MEDS: MethylPREDNISolone 40 mg Vial IVP SCH ×2 (09:12→21:09)
--- NOTE | 2017-12-05 12:46 | CP.PCM.PCO ---
Assessment & Plan - Assessment and Plan (Free Text) Assessment: Patient seen and examined Sputum cx + for Pseudomonas Aureginosa, sensitive to IV Cefepime Discussed with Dr Torres will need iv cefepime for 7 days Referred to TCU for continuation of treatment.
[2017-12-05] MEDS: Cefepime 1 GM in Sodium Chloride 0.9% 100 ML IVPB SCH ×2 (13:13→21:07)
--- NOTE | 2017-12-05 17:56 | CP.PCM.PN ---
Subjective - Date & Time of Evaluation Date of Evaluation: 12/05/17 Time of Evaluation: 13:00 - Subjective Subjective: F/U PNA cough with scanty yellowish flegm , less chest congestion, no SOB Objective - Vital Signs/Intake and Output Vital Signs (last 24 hours): Temp Pulse Resp BP Pulse Ox 97.7 F 96 H 20 131/75 95 12/05/17 16:30 12/05/17 16:30 12/05/17 16:30 12/05/17 16:30 12/05/17 16:30 - Medications Medications: Current Medications Albuterol/Ipratropium (Duoneb 3 Mg/0.5 Mg (3 Ml) Ud) 3 ml INH RQ4 [facility] Last Admin: 12/05/17 15:40 Dose: 3 ml Cefepime HCl 1 gm/ Sodium (Chloride) 100 mls @ 100 mls/hr IVPB Q12 [facility] PRN Reason: Protocol Last Admin: 12/05/17 13:13 Dose: 100 mls/hr Lactulose (Enulose) 20 gm PO DAILY PRN PRN Reason: Constipation Last Admin: 12/04/17 14:25 Dose: 20 gm Methylprednisolone (Solu-Medrol) 30 mg IVP Q12H [facility] Last Admin: 12/05/17 09:12 Dose: 30 mg Promethazine HCl (Phenergan Syrup) 12.5 mg PO Q6 [facility] Last Admin: 12/05/17 16:24 Dose: 12.5 mg - Labs Labs: 11/30/17 05:20 11/30/17 05:20 - Constitutional Appears: No Acute Distress - Head Exam Head Exam: NORMAL INSPECTION - Eye Exam Eye Exam: PERRL - ENT Exam ENT Exam: Normal Exam - Neck Exam Neck Exam: Normal Inspection - Respiratory Exam Respiratory Exam: Decreased Breath Sounds (at bases), Rhonchi - Cardiovascular Exam Cardiovascular Exam: REGULAR RHYTHM - GI/Abdominal Exam GI & Abdominal Exam: Soft, Normal Bowel Sounds - Extremities Exam Extremities Exam: Normal Inspection - Back Exam Back Exam: NORMAL INSPECTION - Neurological Exam Neurological Exam: Alert, Oriented x3. absent: Motor Sensory Deficit - Psychiatric Exam Psychiatric exam: Normal Mood - Skin Skin Exam: Warm Assessment and Plan (1) PNA (pneumonia) Status: Acute (2) COPD exacerbation Status: Acute - Assessment and Plan (Free Text) Plan: sputum Pseudomona , S to Cefepime , DC Sosyn,continue DuoNeb Solu Medrol, TCU, Cefepime IV for 8 days
[2017-12-06] MEDS: Promethazine 12.5 mg/10 ml Syrup PO SCH ×4 (04:09→21:18)
[2017-12-06] MEDS: Albuterol-Ipratrop 3 mg / 0.5 (3 ml) UD INH SCH ×6 (05:00→23:34)
[2017-12-06] MEDS: Cefepime 1 GM in Sodium Chloride 0.9% 100 ML IVPB SCH ×2 (09:07→21:17)
[2017-12-06] MEDS: MethylPREDNISolone 40 mg Vial IVP SCH ×2 (09:08→21:18)
--- NOTE | 2017-12-06 15:56 | CP.PCM.PN ---
Subjective - Date & Time of Evaluation Date of Evaluation: 12/06/17 Time of Evaluation: 11:50 - Subjective Subjective: F/U PNA cough with scanty yellowish flegm improved, chest congestion improved, no SOB Objective - Vital Signs/Intake and Output Vital Signs (last 24 hours): Temp Pulse Resp BP Pulse Ox 98.4 F 93 H 20 118/69 95 12/06/17 15:39 12/06/17 15:39 12/06/17 15:39 12/06/17 15:39 12/06/17 15:39 - Medications Medications: Current Medications Albuterol/Ipratropium (Duoneb 3 Mg/0.5 Mg (3 Ml) Ud) 3 ml INH RQ4 [facility] Last Admin: 12/06/17 15:30 Dose: 3 ml Cefepime HCl 1 gm/ Sodium (Chloride) 100 mls @ 100 mls/hr IVPB Q12 [facility] PRN Reason: Protocol Last Admin: 12/06/17 09:07 Dose: 100 mls/hr Lactulose (Enulose) 20 gm PO DAILY PRN PRN Reason: Constipation Last Admin: 12/04/17 14:25 Dose: 20 gm Methylprednisolone (Solu-Medrol) 30 mg IVP Q12H [facility] Last Admin: 12/06/17 09:08 Dose: 30 mg Promethazine HCl (Phenergan Syrup) 12.5 mg PO Q6 [facility] Last Admin: 12/06/17 09:08 Dose: 12.5 mg - Labs Labs: 11/30/17 05:20 11/30/17 05:20 - Constitutional Appears: No Acute Distress - Head Exam Head Exam: NORMAL INSPECTION - Eye Exam Eye Exam: PERRL - ENT Exam ENT Exam: Normal Exam - Neck Exam Neck Exam: Normal Inspection - Respiratory Exam Respiratory Exam: Decreased Breath Sounds (at bases), Rhonchi (scattered) - Cardiovascular Exam Cardiovascular Exam: REGULAR RHYTHM - GI/Abdominal Exam GI & Abdominal Exam: Soft, Normal Bowel Sounds - Extremities Exam Extremities Exam: Normal Inspection - Back Exam Back Exam: NORMAL INSPECTION - Neurological Exam Neurological Exam: Alert, Oriented x3. absent: Motor Sensory Deficit - Psychiatric Exam Psychiatric exam: Normal Mood - Skin Skin Exam: Warm Assessment and Plan (1) PNA (pneumonia) Status: Acute (2) COPD exacerbation Status: Acute - Assessment and Plan (Free Text) Plan: continue Cefepime, DuoNeb, SoluMedrol, ALEXIS for continue IV Antibiotic
[2017-12-07] MEDS: Albuterol-Ipratrop 3 mg / 0.5 (3 ml) UD INH SCH ×6 (04:35→23:41)
[2017-12-07] MEDS: Promethazine 12.5 mg/10 ml Syrup PO SCH ×4 (04:46→21:21)
[2017-12-07 05:42] LABS: BASO % 0.2 % (0.0-2.0); EOS % 0.1 % (0.0-4.0); HEMOGLOBIN 15.1 g/dL (12.0-18.0); LYMPH # 1.1 K/uL (1.0-4.3); LYMPH % 11.7 % (20.0-40.0); MEAN CELL VOLUME 92.6 fl (80.0-94.0); MEAN CORPUSCULAR HEMOGLOBIN 31.5 pg (27.0-31.0); MEAN PLATELET VOLUME 7.2 fl (7.2-11.7); MONO # 0.6 K/uL (0.0-0.8); MONO % 6.2 % (0.0-10.0); NEUT # 7.5 K/uL (1.8-7.0); NEUT % 81.8 % (50.0-75.0); RBC 4.81 Mil/uL (4.40-5.90); RED CELL DISTRIBUTION WIDTH 13.8 % (11.5-14.5); WHITE BLOOD COUNT 9.1 K/uL (4.8-10.8)
[2017-12-07 06:15] LABS: ALB/GLOB RATIO 0.9 (1.0-2.1); ALBUMIN 3.8 g/dL (3.5-5.0); ALT/SGPT 64 U/L (21-72); AST/SGOT 29 U/L (17-59); BLOOD UREA NITROGEN 21 mg/dl (9-20); CALCIUM 9.1 mg/dL (8.4-10.2); GFR NON-AFRICAN AMERICAN > 60
[2017-12-07] MEDS: Cefepime 1 GM in Sodium Chloride 0.9% 100 ML IVPB SCH ×2 (09:00→21:20)
[2017-12-07] MEDS: MethylPREDNISolone 40 mg Vial IVP SCH ×2 (09:02→21:22)
--- NOTE | 2017-12-07 20:29 | CP.PCM.PN ---
Subjective - Date & Time of Evaluation Date of Evaluation: 12/07/17 Time of Evaluation: 11:20 - Subjective Subjective: F/U PNA Cough improved with scanty yellowish secretion, chest congestion improved. Objective - Vital Signs/Intake and Output Vital Signs (last 24 hours): Temp Pulse Resp BP Pulse Ox 97.8 F 91 H 20 127/71 95 12/07/17 20:24 12/07/17 20:24 12/07/17 20:24 12/07/17 20:24 12/07/17 20:24 - Medications Medications: Current Medications Albuterol/Ipratropium (Duoneb 3 Mg/0.5 Mg (3 Ml) Ud) 3 ml INH RQ4 [facility] Last Admin: 12/07/17 19:05 Dose: 3 ml Cefepime HCl 1 gm/ Sodium (Chloride) 100 mls @ 100 mls/hr IVPB Q12 [facility] PRN Reason: Protocol Last Admin: 12/07/17 09:00 Dose: 100 mls/hr Lactulose (Enulose) 20 gm PO DAILY PRN PRN Reason: Constipation Last Admin: 12/04/17 14:25 Dose: 20 gm Methylprednisolone (Solu-Medrol) 30 mg IVP Q12H [facility] Last Admin: 12/07/17 09:02 Dose: 30 mg Promethazine HCl (Phenergan Syrup) 12.5 mg PO Q6 [facility] Last Admin: 12/07/17 16:41 Dose: 12.5 mg - Labs Labs: 12/07/17 04:45 12/07/17 04:45 - Constitutional Appears: No Acute Distress - Head Exam Head Exam: NORMAL INSPECTION - Eye Exam Eye Exam: PERRL - ENT Exam ENT Exam: Normal Exam - Neck Exam Neck Exam: Normal Inspection - Respiratory Exam Respiratory Exam: Decreased Breath Sounds (at bases), Rhonchi (scattered) - Cardiovascular Exam Cardiovascular Exam: REGULAR RHYTHM - GI/Abdominal Exam GI & Abdominal Exam: Soft, Normal Bowel Sounds - Extremities Exam Extremities Exam: Normal Inspection - Back Exam Back Exam: NORMAL INSPECTION - Neurological Exam Neurological Exam: Alert, Oriented x3. absent: Motor Sensory Deficit - Psychiatric Exam Psychiatric exam: Normal Mood - Skin Skin Exam: Warm Assessment and Plan (1) PNA (pneumonia) Status: Acute (2) COPD exacerbation Status: Acute - Assessment and Plan (Free Text) Plan: Continue Cefepime , Duoneb, Solu-Medrol and rest of Tx.
[2017-12-08] MEDS: Promethazine 12.5 mg/10 ml Syrup PO SCH (04:11)
[2017-12-08] MEDS: Albuterol-Ipratrop 3 mg / 0.5 (3 ml) UD INH SCH ×3 (04:55→11:56)
[2017-12-08 08:29] VITALS: RESP 20
[2017-12-08] MEDS: MethylPREDNISolone 40 mg Vial IVP SCH (10:01)
[2017-12-08] MEDS: Cefepime 1 GM in Sodium Chloride 0.9% 100 ML IVPB SCH (10:03)
[2017-12-08 12:13] VITALS: BP 114/67; PULSE 97; TEMP 98.8; O2SAT 97
--- NOTE | 2017-12-08 16:19 | CP.PCM.DIS ---
Provider - Provider Date of Admission: 11/29/17 18:17 Attending physician: Ravi Torres MD Diagnosis - Discharge Diagnosis (1) PNA (pneumonia) Status: Acute Priority: High (2) COPD exacerbation Status: Acute Priority: High Hospital Course - Lab Results Lab Results: Micro Results 11/29/17 18:37 Blood Blood Culture - Final NO GROWTH AFTER 5 DAYS 11/29/17 18:37 Blood Gram Stain - Final TEST NOT PERFORMED 11/29/17 11:15 Sputum Gram Stain - Final 11/29/17 11:15 Sputum Sputum Culture - Final Pseudomonas Aeruginosa Most Recent Lab Values WBC 9.1 K/uL (4.8-10.8) 12/07/17 04:45 RBC 4.81 Mil/uL (4.40-5.90) 12/07/17 04:45 Hgb 15.1 g/dL (12.0-18.0) 12/07/17 04:45 Hct 44.5 % (35.0-51.0) 12/07/17 04:45 MCV 92.6 fl (80.0-94.0) 12/07/17 04:45 MCH 31.5 pg (27.0-31.0) H 12/07/17 04:45 MCHC 34.0 g/dL (33.0-37.0) 12/07/17 04:45 RDW 13.8 % (11.5-14.5) 12/07/17 04:45 Plt Count 419 K/uL (130-400) H D 12/07/17 04:45 MPV 7.2 fl (7.2-11.7) 12/07/17 04:45 Neut % (Auto) 81.8 % (50.0-75.0) H 12/07/17 04:45 Lymph % (Auto) 11.7 % (20.0-40.0) L 12/07/17 04:45 Taney % (Auto) 6.2 % (0.0-10.0) 12/07/17 04:45 Eos % (Auto) 0.1 % (0.0-4.0) 12/07/17 04:45 Baso % (Auto) 0.2 % (0.0-2.0) 12/07/17 04:45 Neut # (Auto) 7.5 K/uL (1.8-7.0) H 12/07/17 04:45 Lymph # (Auto) 1.1 K/uL (1.0-4.3) 12/07/17 04:45 Taney # (Auto) 0.6 K/uL (0.0-0.8) 12/07/17 04:45 Eos # (Auto) 0.0 K/uL (0.0-0.7) 12/07/17 04:45 Baso # (Auto) 0.0 K/uL (0.0-0.2) 12/07/17 04:45 Neutrophils % (Manual) 83 % (42-75) H 11/29/17 18:37 Band Neutrophils % 5 % (0-2) H 11/29/17 18:37 Lymphocytes % (Manual) 7 % (20-50) L 11/29/17 18:37 Monocytes % (Manual) 5 % (0-10) 11/29/17 18:37 Toxic Granulation Present 11/29/17 18:37 Platelet Estimate Normal (NORMAL) 11/29/17 18:37 Hypochromasia (manual) Slight 11/29/17 18:37 Sodium 135 mmol/l (132-148) 12/07/17 04:45 Potassium 5.2 MMOL/L (3.6-5.0) H 12/07/17 04:45 Chloride 91 mmol/L (98-107) L 12/07/17 04:45 Carbon Dioxide 35 mmol/L (22-30) H 12/07/17 04:45 Anion Gap 14 (10-20) 12/07/17 04:45 BUN 21 mg/dl (9-20) H 12/07/17 04:45 Creatinine 0.6 mg/dl (0.8-1.5) L 12/07/17 04:45 Est GFR ( Amer) > 60 12/07/17 04:45 Est GFR (Non-Af Amer) > 60 12/07/17 04:45 Random Glucose 145 mg/dL (75-110) H 12/07/17 04:45 Calcium 9.1 mg/dL (8.4-10.2) 12/07/17 04:45 Magnesium 2.3 MG/DL (1.6-2.3) 12/07/17 04:45 Total Bilirubin 0.5 mg/dl (0.2-1.3) 12/07/17 04:45 AST 29 U/L (17-59) 12/07/17 04:45 ALT 64 U/L (21-72) 12/07/17 04:45 Alkaline Phosphatase 69 U/L (38-126) 12/07/17 04:45 Total Protein 7.8 G/DL (6.3-8.2) 12/07/17 04:45 Albumin 3.8 g/dL (3.5-5.0) 12/07/17 04:45 Globulin 4.0 gm/dL (2.2-3.9) H 12/07/17 04:45 Albumin/Globulin Ratio 0.9 (1.0-2.1) L 12/07/17 04:45 Triglycerides 47 mg/DL (0-149) D 11/30/17 05:20 Cholesterol 133 mg/dL (0-199) 11/30/17 05:20 LDL Cholesterol Direct 65 mg/dL (0-129) 11/30/17 05:20 HDL Cholesterol 41 MG/DL (30-70) 11/30/17 05:20 Free T4 0.91 ng/dL (0.78-2.19) 12/07/17 04:45 Thyroxine (T4) 5.14 ug/dl (5.5-11.0) L 11/30/17 05:20 Free T3 pg/mL 2.40 pg/mL (2.77-5.27) L 12/07/17 04:45 TSH 3rd Generation 0.39 mIU/ML (0.46-4.68) L 11/30/17 05:20 Discharge Exam - Head Exam Head Exam: NORMAL INSPECTION Discharge Plan - Discharge Medications Prescriptions: Cefepime 1gm in NS 100ml [Maxipime 1gm] 1 gm IVPB Q12 #14 bag - Follow Up Plan Condition: FAIR Disposition: REHAB FACILITY/REHAB UNIT Additional Instructions: pt. cleared for d/c to TCU today by cont. IV Abx cefepime 1 gm q12 and solumderol 40 mg iv q12- taper dose Referrals: Ravi Torres MD [Family Provider] -
== END 2017-12-08 14:22 | DRG 190 ==
LOC: H.ER 17:46 → SUPCPDRO 17:46 → H.ERHOLD 18:17 → H.TEL 20:48
PROVIDERS: ADMIT Internal Medicine Pulmonary Disease; ATTEND Internal Medicine Pulmonary Disease
DX: J44.0 Chronic obstructive pulmonary disease with (acute) lower respiratory infection (principal); J18.9 Pneumonia, unspecified organism; J44.1 Chronic obstructive pulmonary disease with (acute) exacerbation; I25.2 Old myocardial infarction; Z87.891 Personal history of nicotine dependence

== ENCOUNTER 2017-12-08 14:35 | Inpatient (IN) | payer BC, MEDICARE ==
[2017-12-08 14:38] VITALS: BMI 25.8
[2017-12-08] MEDS ORDERED: MethylPREDNISolone 40 mg Vial IVP SCH (15:00)
[2017-12-08] MEDS: Albuterol-Ipratrop 3 mg / 0.5 (3 ml) UD INH SCH ×2 (15:20→19:13)
[2017-12-08] MEDS: Promethazine 12.5 mg/10 ml Syrup PO SCH ×2 (16:56→21:11)
[2017-12-08] MEDS: Cefepime 1 GM in Sodium Chloride 0.9% 100 ML IVPB SCH (20:59)
[2017-12-08] MEDS ORDERED: Patient's Own Med (Cefepime 1gm In Ns 100ml [Maxipime 1gm] 1 GM) IVPB SCH (21:00)
[2017-12-08] MEDS: MethylPREDNISolone 40 mg Vial IVP SCH (21:10)
[2017-12-09] MEDS: Albuterol-Ipratrop 3 mg / 0.5 (3 ml) UD INH SCH ×6 (00:03→19:52)
[2017-12-09] MEDS: Promethazine 12.5 mg/10 ml Syrup PO SCH ×4 (05:12→21:54)
[2017-12-09] MEDS: Cefepime 1 GM in Sodium Chloride 0.9% 100 ML IVPB SCH ×2 (09:02→20:30)
[2017-12-09] MEDS: MethylPREDNISolone 40 mg Vial IVP SCH ×2 (09:03→20:29)
--- NOTE | 2017-12-09 15:25 | CP.PCM.HP ---
History of Present Illness - History of Present Illness History of Present Illness: 72 y/o M, previously admitted on 11/29/17 to [facility] for PNA, COPD Exacerbation, discharged to TCU on 12/08/17 to continue IV ABT Tx and PT,OT. Worsening symptoms: SOB on Exertion, associated to productive cough with scant yellowish sputum. Aggravated factor: Exercise. No: Fever, chills, n/v/d/ abdominal pain, urinary symptoms, bloody cough, CP, palpitations, dizziness. Present on Admission - Present on Admission Any Indicators Present on Admission: No Review of Systems - Constitutional Constitutional: Other (negative) - EENT Eyes: Other (negative) Ears: Other (negative) Nose/Mouth/Throat: Other (negative) - Cardiovascular Cardiovascular: Other (negative) - Respiratory Respiratory: Cough, Dyspnea, Dyspnea on Exertion - Gastrointestinal Gastrointestinal: Other (negative) - Genitourinary Genitourinary: Other (negative) - Musculoskeletal Musculoskeletal: Other (negative) - Integumentary Integumentary: Other (negative) - Neurological Neurological: Other (negative) - Psychiatric Psychiatric: Other (negative) - Endocrine Endocrine: Other (negative) - Hematologic/Lymphatic Hematologic: Other (negative) Past Patient History - Infectious Disease Hx of Infectious Diseases: None - Past Medical History & Family History Past Medical History?: Yes Pertinent Family History: Unknown - Past Social History Smoking Status: Former Smoker Alcohol: None Drugs: Denies Home Situation {Lives}: Alone - CARDIAC Hx Cardiac Disorders: Yes (Hx NSTEMI) Hx Heart Attack: Yes (NSTEMI) - PULMONARY Hx Respiratory Disorders: Yes Hx Asthma: Yes Hx Chronic Obstructive Pulmonary Disease (COPD): Yes Hx Pneumonia: Yes Hx Pulmonary Embolism: Yes - NEUROLOGICAL Hx Neurological Disorder: No - HEENT Hx HEENT Problems: No - RENAL Hx Chronic Kidney Disease: No - ENDOCRINE/METABOLIC Hx Endocrine Disorders: No - HEMATOLOGICAL/ONCOLOGICAL Hx Blood Disorders: No Hx AIDS: No Hx Human Immunodeficiency Virus (HIV): No - INTEGUMENTARY Hx Dermatological Problems: No - MUSCULOSKELETAL/RHEUMATOLOGICAL Hx Musculoskeletal Disorders: No Hx Falls: No - GASTROINTESTINAL Hx Gastrointestinal Disorders: No - GENITOURINARY/GYNECOLOGICAL Hx Genitourinary Disorders: No - PSYCHIATRIC Hx Psychophysiologic Disorder: No Hx Substance Use: No - SURGICAL HISTORY Hx Surgeries: No - ANESTHESIA Hx Anesthesia: No Hx Anesthesia Reactions: No Meds Allergies/Adverse Reactions: Allergies Allergy/AdvReac Type Severity Reaction Status Date / Time No Known Allergies Allergy Verified 12/08/17 14:44 Physical Exam - Constitutional Appears: No Acute Distress - Head Exam Head Exam: NORMAL INSPECTION - Eye Exam Eye Exam: PERRL - ENT Exam ENT Exam: Normal Exam - Neck Exam Neck exam: Positive for: Normal Inspection - Respiratory Exam Respiratory Exam: Decreased Breath Sounds (at bases), Rhonchi (scattered) - Cardiovascular Exam Cardiovascular Exam: REGULAR RHYTHM - GI/Abdominal Exam GI & Abdominal Exam: Normal Bowel Sounds, Soft - Extremities Exam Extremities exam: Positive for: normal inspection - Back Exam Back exam: NORMAL INSPECTION - Neurological Exam Neurological exam: Alert, Oriented x3 Additional comments: No motor/sensory deficit - Psychiatric Exam Psychiatric exam: Normal Mood - Skin Skin Exam: Warm Results - Vital Signs Recent Vital Signs: Last Vital Signs Temp 97.5 F L 12/09/17 08:04 Pulse 90 12/09/17 08:04 Resp 18 12/09/17 08:04 BP 115/75 12/09/17 08:04 Pulse Ox 97 12/09/17 08:04 reviewed J.P. - Labs Labs: reviewed J.P. Assessment & Plan (1) COPD exacerbation Status: Acute Priority: High (2) PNA (pneumonia) Status: Acute Priority: High - Assessment and Plan (Free Text) Plan: Continue O2 NC, Cefepime, Duoneb, Solu-Medrol, Phenergan and rest of Tx. - Date & Time Date: 12/09/17
[2017-12-10] MEDS: Albuterol-Ipratrop 3 mg / 0.5 (3 ml) UD INH SCH ×7 (00:20→23:14)
[2017-12-10] MEDS: Promethazine 12.5 mg/10 ml Syrup PO SCH ×4 (04:33→21:06)
[2017-12-10] MEDS: Cefepime 1 GM in Sodium Chloride 0.9% 100 ML IVPB SCH ×2 (09:29→20:52)
[2017-12-10] MEDS: MethylPREDNISolone 40 mg Vial IVP SCH ×2 (09:31→20:52)
--- NOTE | 2017-12-10 15:59 | CP.PCM.PN ---
Subjective - Date & Time of Evaluation Date of Evaluation: 12/10/17 Time of Evaluation: 12:00 - Subjective Subjective: F/U PNA Pt with occasional cough with scant yellowish sputum, no SOB, no RUIZ, at times c/o of pain of posterior chest wall. Objective - Vital Signs/Intake and Output Vital Signs (last 24 hours): Temp Pulse Resp BP Pulse Ox 97.9 F 89 18 120/72 97 12/10/17 07:53 12/10/17 07:53 12/10/17 07:53 12/10/17 07:53 12/10/17 07:53 - Medications Medications: Current Medications Albuterol/Ipratropium (Duoneb 3 Mg/0.5 Mg (3 Ml) Ud) 3 ml INH RQ4 [facility] Last Admin: 12/10/17 15:36 Dose: 3 ml Cefepime HCl 1 gm/ Sodium (Chloride) 100 mls @ 100 mls/hr IVPB Q12 [facility] Last Admin: 12/10/17 09:29 Dose: 100 mls/hr Lactulose (Enulose) 20 gm PO DAILY PRN PRN Reason: Constipation Methylprednisolone (Solu-Medrol) 30 mg IVP Q12@0900,2100 [facility] Last Admin: 12/10/17 09:31 Dose: 30 mg Promethazine HCl (Phenergan Syrup) 12.5 mg PO Q6 [facility] Last Admin: 12/10/17 09:30 Dose: 12.5 mg - Constitutional Appears: No Acute Distress - Head Exam Head Exam: NORMAL INSPECTION - Eye Exam Eye Exam: PERRL - ENT Exam ENT Exam: Normal Exam - Neck Exam Neck Exam: Normal Inspection - Respiratory Exam Respiratory Exam: Decreased Breath Sounds (at bases), Rhonchi (b/l) Additional comments: No R posterior chest wall tenderness. - Cardiovascular Exam Cardiovascular Exam: REGULAR RHYTHM - GI/Abdominal Exam GI & Abdominal Exam: Soft, Normal Bowel Sounds - Extremities Exam Extremities Exam: Normal Inspection - Neurological Exam Neurological Exam: Alert, Oriented x3. absent: Motor Sensory Deficit - Psychiatric Exam Psychiatric exam: Normal Mood - Skin Skin Exam: Warm Assessment and Plan (1) COPD exacerbation Status: Acute (2) PNA (pneumonia) Status: Acute - Assessment and Plan (Free Text) Plan: Continue Cefepime, Duoneb, Solu-Medrol and rest of Tx.
[2017-12-11] MEDS: Albuterol-Ipratrop 3 mg / 0.5 (3 ml) UD INH SCH ×6 (04:43→23:08)
[2017-12-11] MEDS: Promethazine 12.5 mg/10 ml Syrup PO SCH ×4 (04:53→21:33)
[2017-12-11] MEDS: MethylPREDNISolone 40 mg Vial IVP SCH ×2 (09:24→20:24)
[2017-12-11] MEDS: Cefepime 1 GM in Sodium Chloride 0.9% 100 ML IVPB SCH ×2 (09:24→20:24)
[2017-12-11] MEDS ORDERED: Lactulose 10 gm/15 ml Syrup PO PRN (09:41)
--- NOTE | 2017-12-11 20:53 | CP.PCM.PN ---
Objective - Vital Signs/Intake and Output Vital Signs (last 24 hours): Temp Pulse Resp BP Pulse Ox 98.1 F 89 20 123/67 95 12/11/17 19:41 12/11/17 19:41 12/11/17 19:41 12/11/17 19:41 12/11/17 19:41 - Medications Medications: Current Medications Albuterol/Ipratropium (Duoneb 3 Mg/0.5 Mg (3 Ml) Ud) 3 ml INH RQ4 [facility] Last Admin: 12/11/17 19:15 Dose: 3 ml Docusate Sodium (Colace) 100 mg PO BID [facility] Cefepime HCl 1 gm/ Sodium (Chloride) 100 mls @ 100 mls/hr IVPB Q12 [facility] Last Admin: 12/11/17 20:24 Dose: 100 mls/hr Lactulose (Enulose) 20 gm PO DAILY PRN PRN Reason: Constipation Last Admin: 12/11/17 17:25 Dose: 20 gm Methylprednisolone (Solu-Medrol) 30 mg IVP Q12@0900,2100 [facility] Last Admin: 12/11/17 20:24 Dose: 30 mg Promethazine HCl (Phenergan Syrup) 12.5 mg PO Q6 [facility] Last Admin: 12/11/17 16:53 Dose: 12.5 mg Assessment and Plan (1) COPD exacerbation Status: Acute (2) PNA (pneumonia) Status: Acute
[2017-12-12] MEDS: Promethazine 12.5 mg/10 ml Syrup PO SCH ×4 (04:43→21:43)
[2017-12-12] MEDS: Albuterol-Ipratrop 3 mg / 0.5 (3 ml) UD INH SCH ×6 (04:48→23:05)
[2017-12-12] MEDS: Cefepime 1 GM in Sodium Chloride 0.9% 100 ML IVPB SCH ×2 (08:13→21:44)
[2017-12-12] MEDS: MethylPREDNISolone 40 mg Vial IVP SCH (08:13)
[2017-12-12] MEDS ORDERED: Sodium Chloride 3% for Inhalation 4 ML VIAL.NEB IH PRN (12:04)
--- NOTE | 2017-12-12 13:22 | RAD ---
HISTORY: md COMPARISON: Chest x-ray performed 11/29/17 TECHNIQUE: Chest PA and lateral FINDINGS: LUNGS: Extensive cystic and fibrotic changes involving the upper lobes, right greater than left with bi apical pleural thickening. Bibasilar atelectasis/fibrosis. There is retraction of the trachea and hilar regions and mediastinal shift to the right. Please note that chest x-ray has limited sensitivity for the detection of pulmonary masses. PLEURA: No significant pleural effusion identified. No definite pneumothorax . CARDIOVASCULAR: Stable. OSSEOUS STRUCTURES: Degenerative changes. Osseous demineralization. VISUALIZED UPPER ABDOMEN: Unremarkable. OTHER FINDINGS: None. IMPRESSION: Extensive fibrotic and consolidative changes as above without significant interval change.
--- NOTE | 2017-12-12 18:51 | CP.PCM.PN ---
Subjective - Date & Time of Evaluation Date of Evaluation: 12/12/17 Time of Evaluation: 11:20 - Subjective Subjective: F/U PNA Pt c/o of L thoracic spine pain, no pain with dep breathing, minimal cough, no sputum, Objective - Vital Signs/Intake and Output Vital Signs (last 24 hours): Temp Pulse Resp BP Pulse Ox 97.9 F 93 H 20 110/61 95 12/12/17 15:47 12/12/17 15:47 12/12/17 15:47 12/12/17 15:47 12/12/17 15:47 - Medications Medications: Current Medications Albuterol/Ipratropium (Duoneb 3 Mg/0.5 Mg (3 Ml) Ud) 3 ml INH RQ4 [facility] Last Admin: 12/12/17 15:12 Dose: 3 ml Docusate Sodium (Colace) 100 mg PO BID [facility] Last Admin: 12/12/17 16:17 Dose: 100 mg Cefepime HCl 1 gm/ Sodium (Chloride) 100 mls @ 100 mls/hr IVPB Q12 [facility] Last Admin: 12/12/17 08:13 Dose: 100 mls/hr Lactulose (Enulose) 20 gm PO DAILY PRN PRN Reason: Constipation Last Admin: 12/11/17 17:25 Dose: 20 gm Methylprednisolone (Solu-Medrol) 30 mg IVP DAILY [facility] Promethazine HCl (Phenergan Syrup) 12.5 mg PO Q6 [facility] Last Admin: 12/12/17 16:17 Dose: 12.5 mg - Constitutional Appears: No Acute Distress - Head Exam Head Exam: NORMAL INSPECTION - Eye Exam Eye Exam: PERRL - ENT Exam ENT Exam: Normal Exam - Neck Exam Neck Exam: Normal Inspection - Respiratory Exam Respiratory Exam: Decreased Breath Sounds (at bases), Rhonchi (scattered) - Cardiovascular Exam Cardiovascular Exam: REGULAR RHYTHM - GI/Abdominal Exam GI & Abdominal Exam: Soft, Normal Bowel Sounds - Extremities Exam Extremities Exam: Normal Inspection - Back Exam Additional comments: Tenderness in the L thoracic spine muscles. - Neurological Exam Neurological Exam: Alert, Oriented x3. absent: Motor Sensory Deficit - Psychiatric Exam Psychiatric exam: Normal Mood - Skin Skin Exam: Warm Assessment and Plan (1) COPD exacerbation Status: Acute (2) PNA (pneumonia) Status: Acute - Assessment and Plan (Free Text) Plan: F/U CXR, Sptum C-S, continue Cefepime, Duoneb and rest of Tx.
[2017-12-13] MEDS: Albuterol-Ipratrop 3 mg / 0.5 (3 ml) UD INH SCH ×6 (04:28→23:37)
[2017-12-13] MEDS: Promethazine 6.25 MG/5 ML CUP PO SCH ×4 (04:33→21:24)
[2017-12-13] MEDS: MethylPREDNISolone 40 mg Vial IVP SCH (09:23)
[2017-12-13] MEDS: Cefepime 1 GM in Sodium Chloride 0.9% 100 ML IVPB SCH ×2 (09:26→21:23)
--- NOTE | 2017-12-13 12:18 | CP.PCM.PN ---
Subjective - Date & Time of Evaluation Date of Evaluation: 12/13/17 Time of Evaluation: 12:15 - Subjective Subjective: F/U PNA no SOB, no RUIZ, occasional cough "dry" or with scanty yellowish flegm,minimal Left thoracic spine pain not related to breathing Objective - Vital Signs/Intake and Output Vital Signs (last 24 hours): Temp Pulse Resp BP Pulse Ox 97.9 F 98 H 20 115/75 95 12/12/17 20:05 12/12/17 20:05 12/12/17 20:05 12/12/17 20:05 12/12/17 20:05 - Medications Medications: Current Medications Albuterol/Ipratropium (Duoneb 3 Mg/0.5 Mg (3 Ml) Ud) 3 ml INH RQ4 [facility] Last Admin: 12/13/17 11:08 Dose: 3 ml Docusate Sodium (Colace) 100 mg PO BID [facility] Last Admin: 12/13/17 09:22 Dose: 100 mg Cefepime HCl 1 gm/ Sodium (Chloride) 100 mls @ 100 mls/hr IVPB Q12 [facility] Last Admin: 12/13/17 09:26 Dose: 100 mls/hr Lactulose (Enulose) 20 gm PO DAILY PRN PRN Reason: Constipation Last Admin: 12/12/17 21:47 Dose: 20 gm Methylprednisolone (Solu-Medrol) 30 mg IVP DAILY [facility] Last Admin: 12/13/17 09:23 Dose: 30 mg Promethazine HCl (Phenergan Syrup) 12.5 mg PO Q6 [facility] Last Admin: 12/13/17 09:22 Dose: 12.5 mg - Constitutional Appears: No Acute Distress - Head Exam Head Exam: NORMAL INSPECTION - Eye Exam Eye Exam: PERRL - ENT Exam ENT Exam: Normal Exam - Neck Exam Neck Exam: Normal Inspection - Respiratory Exam Respiratory Exam: Decreased Breath Sounds (at bases), Rhonchi (scattered) - Cardiovascular Exam Cardiovascular Exam: REGULAR RHYTHM - Extremities Exam Extremities Exam: Normal Inspection - Back Exam Back Exam: paraspinal tenderness (Left thoracic spine) Additional comments: Tenderness L thoracic spine muscles - Neurological Exam Neurological Exam: Alert, Oriented x3 Additional comments: No motor/sensory deficit. - Psychiatric Exam Psychiatric exam: Normal Mood - Skin Skin Exam: Warm Assessment and Plan (1) COPD exacerbation Status: Acute (2) PNA (pneumonia) Status: Acute - Assessment and Plan (Free Text) Plan: taper SoluMedrol ,Cefepime, DuoNeb, f/u CT Chest, f/u sputum C-S
[2017-12-14] MEDS: Albuterol-Ipratrop 3 mg / 0.5 (3 ml) UD INH SCH ×6 (04:45→23:33)
[2017-12-14] MEDS: Promethazine 6.25 MG/5 ML CUP PO SCH ×4 (05:02→22:16)
[2017-12-14 06:40] LABS: HEMOGLOBIN 14.1 g/dL (12.0-18.0); MEAN CELL VOLUME 91.9 fl (80.0-94.0); MEAN CORPUSCULAR HEMOGLOBIN 31.5 pg (27.0-31.0); MEAN CORPUSCULAR HGB CONC 34.3 g/dL (33.0-37.0); RBC 4.47 Mil/uL (4.40-5.90); WHITE BLOOD COUNT 10.7 K/uL (4.8-10.8)
[2017-12-14 06:41] LABS: BASO % 0.1 % (0.0-2.0); EOS # 0.1 K/uL (0.0-0.7); EOS % 0.5 % (0.0-4.0); LYMPH # 1.6 K/uL (1.0-4.3); LYMPH % 14.7 % (20.0-40.0); MEAN PLATELET VOLUME 7.6 fl (7.2-11.7); MONO # 1.3 K/uL (0.0-0.8); MONO % 12.1 % (0.0-10.0); NEUT # 7.7 K/uL (1.8-7.0); NEUT % 72.6 % (50.0-75.0)
[2017-12-14 07:18] LABS: ALBUMIN 3.2 g/dL (3.5-5.0); ALT/SGPT 37 U/L (21-72); AST/SGOT 24 U/L (17-59); BLOOD UREA NITROGEN 13 mg/dl (9-20); CALCIUM 8.5 mg/dL (8.4-10.2); GFR NON-AFRICAN AMERICAN > 60
[2017-12-14] MEDS: Cefepime 1 GM in Sodium Chloride 0.9% 100 ML IVPB SCH ×3 (08:35→22:16)
[2017-12-14] MEDS: MethylPREDNISolone 40 mg Vial IVP SCH (08:35)
[2017-12-15] MEDS: Promethazine 6.25 MG/5 ML CUP PO SCH ×4 (04:35→21:31)
[2017-12-15] MEDS: Albuterol-Ipratrop 3 mg / 0.5 (3 ml) UD INH SCH ×6 (05:30→23:37)
[2017-12-15] MEDS: Cefepime 1 GM in Sodium Chloride 0.9% 100 ML IVPB SCH ×2 (08:36→21:33)
[2017-12-15] MEDS: MethylPREDNISolone 40 mg Vial IVP SCH (08:41)
--- NOTE | 2017-12-15 11:16 | CP.PCM.CON ---
History of Present Illness - History of Present Illness History of Present Illness: 72 y/o M, previously admitted on 11/29/17 to [facility], with exacerbation of copd and pneumonia was discharged recently and came back with worsening symptoms. pseudomonas pneumonia sputum culture positive Past Patient History - Infectious Disease Hx of Infectious Diseases: None - Past Medical History & Family History Past Medical History?: Yes - Past Social History Smoking Status: Former Smoker Alcohol: None Drugs: Denies Home Situation {Lives}: Alone - CARDIAC Hx Cardiac Disorders: Yes (Hx NSTEMI) Hx Heart Attack: Yes (NSTEMI) - PULMONARY Hx Respiratory Disorders: Yes Hx Asthma: Yes Hx Chronic Obstructive Pulmonary Disease (COPD): Yes Hx Pneumonia: Yes Hx Pulmonary Embolism: Yes - NEUROLOGICAL Hx Neurological Disorder: No - HEENT Hx HEENT Problems: No - RENAL Hx Chronic Kidney Disease: No - ENDOCRINE/METABOLIC Hx Endocrine Disorders: No - HEMATOLOGICAL/ONCOLOGICAL Hx Blood Disorders: No Hx AIDS: No Hx Human Immunodeficiency Virus (HIV): No - INTEGUMENTARY Hx Dermatological Problems: No - MUSCULOSKELETAL/RHEUMATOLOGICAL Hx Musculoskeletal Disorders: No Hx Falls: No - GASTROINTESTINAL Hx Gastrointestinal Disorders: No - GENITOURINARY/GYNECOLOGICAL Hx Genitourinary Disorders: No - PSYCHIATRIC Hx Psychophysiologic Disorder: No Hx Substance Use: No - SURGICAL HISTORY Hx Surgeries: No - ANESTHESIA Hx Anesthesia: No Hx Anesthesia Reactions: No Meds Allergies/Adverse Reactions: Allergies Allergy/AdvReac Type Severity Reaction Status Date / Time No Known Allergies Allergy Verified 12/08/17 14:44 - Medications Medications: Current Medications Albuterol/Ipratropium (Duoneb 3 Mg/0.5 Mg (3 Ml) Ud) 3 ml INH RQ4 [facility] Last Admin: 12/15/17 07:15 Dose: 3 ml Docusate Sodium (Colace) 100 mg PO BID [facility] Last Admin: 12/15/17 08:37 Dose: 100 mg Cefepime HCl 1 gm/ Sodium (Chloride) 100 mls @ 100 mls/hr IVPB Q12 [facility] PRN Reason: Protocol Last Admin: 12/15/17 08:36 Dose: 100 mls/hr Lactulose (Enulose) 20 gm PO DAILY PRN PRN Reason: Constipation Last Admin: 12/12/17 21:47 Dose: 20 gm Methylprednisolone (Solu-Medrol) 30 mg IVP DAILY [facility] Last Admin: 12/15/17 08:41 Dose: 30 mg Promethazine HCl (Phenergan Syrup) 12.5 mg PO Q6 [facility] Last Admin: 12/15/17 09:01 Dose: 12.5 mg Physical Exam - Respiratory Exam Respiratory Exam: Rales Additional comments: diffuse crackles heard Results - Vital Signs Recent Vital Signs: Last Vital Signs Temp 97.7 F 12/15/17 08:00 Pulse 89 12/15/17 08:00 Resp 20 12/15/17 08:00 BP 105/59 L 12/15/17 08:00 Pulse Ox 95 12/15/17 08:00 - Labs Result Diagrams: 12/14/17 06:25 12/14/17 06:25 Assessment & Plan - Assessment and Plan (Free Text) Assessment: Pseudomonal pneumonia in a patient with fibrosis. etio? Continue Cefepime for a total of 14 days. f/u CT chest
[2017-12-16] MEDS: Albuterol-Ipratrop 3 mg / 0.5 (3 ml) UD INH SCH ×6 (04:32→23:31)
[2017-12-16] MEDS: Promethazine 6.25 MG/5 ML CUP PO SCH ×4 (04:44→21:08)
[2017-12-16] MEDS: Cefepime 1 GM in Sodium Chloride 0.9% 100 ML IVPB SCH ×2 (08:43→21:08)
[2017-12-16] MEDS: MethylPREDNISolone 40 mg Vial IVP SCH (08:44)
[2017-12-16 10:53] VITALS: RESP 20
[2017-12-17] MEDS: Promethazine 6.25 MG/5 ML CUP PO SCH ×4 (04:28→21:25)
[2017-12-17] MEDS: Albuterol-Ipratrop 3 mg / 0.5 (3 ml) UD INH SCH ×6 (04:44→23:44)
[2017-12-17] MEDS: Cefepime 1 GM in Sodium Chloride 0.9% 100 ML IVPB SCH ×2 (08:41→20:43)
[2017-12-17] MEDS: MethylPREDNISolone 40 mg Vial IVP SCH (08:42)
[2017-12-18] MEDS: Promethazine 6.25 MG/5 ML CUP PO SCH ×4 (03:50→21:13)
[2017-12-18] MEDS: Albuterol-Ipratrop 3 mg / 0.5 (3 ml) UD INH SCH ×5 (04:30→19:20)
[2017-12-18] MEDS: Cefepime 1 GM in Sodium Chloride 0.9% 100 ML IVPB SCH ×2 (08:29→20:39)
[2017-12-18] MEDS: MethylPREDNISolone 40 mg Vial IVP SCH (08:30)
[2017-12-19] MEDS: Albuterol-Ipratrop 3 mg / 0.5 (3 ml) UD INH SCH ×4 (00:17→11:35)
[2017-12-19] MEDS: Promethazine 6.25 MG/5 ML CUP PO SCH (04:00)
[2017-12-19] MEDS ORDERED: Cefepime 1 GM in Sodium Chloride 0.9% 100 ML IVPB ONE (09:00)
[2017-12-19] MEDS ORDERED: Promethazine 6.25 MG/5 ML CUP ONE (09:00)
[2017-12-19 14:08] VITALS: BP 122/55; PULSE 91; TEMP 98.1; O2SAT 100
--- NOTE | 2017-12-19 14:28 | CP.PCM.DIS ---
Provider - Provider Date of Admission: 12/08/17 14:38 Attending physician: Ravi Torres MD Primary care physician: Dr Torres Consults: Dr Wiley Time Spent in preparation of Discharge (in minutes): 25 Diagnosis - Discharge Diagnosis (1) COPD exacerbation Status: Chronic Priority: High Comment: stable (2) PNA (pneumonia) Status: Resolved Priority: High Comment: resolved Hospital Course - Lab Results Lab Results: Micro Results 12/12/17 14:47 Sputum Gram Stain - Final 12/12/17 14:47 Sputum Sputum Culture - Final Achromobact Xylosoxidans Most Recent Lab Values WBC 10.7 K/uL (4.8-10.8) 12/14/17 06:25 RBC 4.47 Mil/uL (4.40-5.90) 12/14/17 06:25 Hgb 14.1 g/dL (12.0-18.0) 12/14/17 06:25 Hct 41.1 % (35.0-51.0) 12/14/17 06:25 MCV 91.9 fl (80.0-94.0) 12/14/17 06:25 MCH 31.5 pg (27.0-31.0) H 12/14/17 06:25 MCHC 34.3 g/dL (33.0-37.0) 12/14/17 06:25 RDW 14.0 % (11.5-14.5) 12/14/17 06:25 Plt Count 310 K/uL (130-400) D 12/14/17 06:25 MPV 7.6 fl (7.2-11.7) 12/14/17 06:25 Neut % (Auto) 72.6 % (50.0-75.0) 12/14/17 06:25 Lymph % (Auto) 14.7 % (20.0-40.0) L 12/14/17 06:25 [place] % (Auto) 12.1 % (0.0-10.0) H 12/14/17 06:25 Eos % (Auto) 0.5 % (0.0-4.0) 12/14/17 06:25 Baso % (Auto) 0.1 % (0.0-2.0) 12/14/17 06:25 Neut # (Auto) 7.7 K/uL (1.8-7.0) H 12/14/17 06:25 Lymph # (Auto) 1.6 K/uL (1.0-4.3) 12/14/17 06:25 [place] # (Auto) 1.3 K/uL (0.0-0.8) H 12/14/17 06:25 Eos # (Auto) 0.1 K/uL (0.0-0.7) 12/14/17 06:25 Baso # (Auto) 0.0 K/uL (0.0-0.2) 12/14/17 06:25 Sodium 133 mmol/l (132-148) 12/14/17 06:25 Potassium 4.1 MMOL/L (3.6-5.0) 12/14/17 06:25 Chloride 93 mmol/L (98-107) L 12/14/17 06:25 Carbon Dioxide 37 mmol/L (22-30) H 12/14/17 06:25 Anion Gap 7 (10-20) L 12/14/17 06:25 BUN 13 mg/dl (9-20) 12/14/17 06:25 Creatinine 0.4 mg/dl (0.8-1.5) L 12/14/17 06:25 Est GFR ( Amer) > 60 12/14/17 06:25 Est GFR (Non-Af Amer) > 60 12/14/17 06:25 Random Glucose 98 mg/dL (75-110) 12/14/17 06:25 Calcium 8.5 mg/dL (8.4-10.2) 12/14/17 06:25 Magnesium 2.1 MG/DL (1.6-2.3) 12/14/17 06:25 Total Bilirubin 0.7 mg/dl (0.2-1.3) 12/14/17 06:25 AST 24 U/L (17-59) 12/14/17 06:25 ALT 37 U/L (21-72) 12/14/17 06:25 Alkaline Phosphatase 76 U/L (38-126) 12/14/17 06:25 Total Protein 6.4 G/DL (6.3-8.2) 12/14/17 06:25 Albumin 3.2 g/dL (3.5-5.0) L 12/14/17 06:25 Globulin 3.2 gm/dL (2.2-3.9) 12/14/17 06:25 Albumin/Globulin Ratio 1.0 (1.0-2.1) 12/14/17 06:25 - Hospital Course Hospital Course: 72 yo male admitted because of COPD exacerbation and Pneumonia was transferred to TCU for continuation of IV antibiotics. Sputum culture grew Pseudomonas. Patient did well and now was ready for discharge. Discharge Exam - Head Exam Head Exam: NORMAL INSPECTION - Eye Exam Eye Exam: absent: Scleral icterus - ENT Exam ENT Exam: Mucous Membranes Moist - Respiratory Exam Respiratory Exam: absent: Rhonchi, Wheezes, Respiratory Distress - Cardiovascular Exam Cardiovascular Exam: REGULAR RHYTHM, +S1, +S2 - GI/Abdominal Exam GI & Abdominal Exam: Soft. absent: Tenderness - Rectal Exam Rectal Exam: Deferred - Neurological Exam Neurological exam: Alert, Oriented x3 - Psychiatric Exam Psychiatric exam: Normal Affect - Skin Skin Exam: Dry, Intact Discharge Plan - Follow Up Plan Condition: GOOD Disposition: HOME/ ROUTINE Instructions: Pneumonia in Adults, Sepsis, Adult (DC)
== END 2017-12-19 14:00 | disposition home or self-care (01) | DRG 178 ==
LOC: H.TCU 14:38
PROVIDERS: ADMIT Internal Medicine Pulmonary Disease; ATTEND Internal Medicine Pulmonary Disease
DX: J15.1 Pneumonia due to Pseudomonas (principal); J44.0 Chronic obstructive pulmonary disease with (acute) lower respiratory infection; J44.1 Chronic obstructive pulmonary disease with (acute) exacerbation; Z86.711 Personal history of pulmonary embolism; Z87.01 Personal history of pneumonia (recurrent); Z87.891 Personal history of nicotine dependence; M54.6 Pain in thoracic spine; I25.2 Old myocardial infarction

== ENCOUNTER 2018-01-20 17:20 | Inpatient (IN) | payer BC, MEDICARE ==
[2018-01-20 17:20] VITALS: BMI 25.8
[2018-01-20] MEDS ORDERED: Albuterol-Ipratrop 3 mg / 0.5 (3 ml) UD ONE ×2 (17:49→18:12)
[2018-01-20] MEDS ORDERED: Albuterol-Ipratrop 3 mg / 0.5 (3 ml) UD INH STA (17:53)
[2018-01-20] MEDS ORDERED: Albuterol-Ipratrop 3 mg / 0.5 (3 ml) UD IH STA ×2 (17:53→17:55)
--- NOTE | 2018-01-20 17:58 | ED PDOC ---
HPI: SOB/CHF/COPD Time Seen by Provider: 01/20/18 17:46 Chief Complaint (Nursing): Respiratory Distress Chief Complaint (Provider): Dyspnea History Per: Patient History/Exam Limitations: no limitations Onset/Duration Of Symptoms: Days (2) Current Symptoms Are (Timing): Still Present Additional Complaint(s): Pt. with dyspnea for 2 days. Worsening. No cough, runny nose, chest pain. No abd pain. No nausea, vomit, diarrhea. Tried albuterol at home. No fever. Dr. Torres is pcp. Feels like copd exacerbation. Past Medical History Reviewed: Nursing Documentation, Vital Signs Vital Signs: Last Vital Signs Temp 98.2 F 01/20/18 17:30 Pulse 131 H 01/20/18 17:30 Resp 22 01/20/18 17:30 BP 115/63 01/20/18 17:30 Pulse Ox 85 L 01/20/18 17:30 - Medical History PMH: Asthma, COPD, Pneumonia Denies: HIV, Chronic Kidney Disease - Family History Family History: States: Hypertension - Living Arrangements Living Arrangements: With Family - Social History Alcohol: None Drugs: Denies - Home Medications Home Medications: Ambulatory Orders Medication Instructions Recorded Albuterol HFA [Ventolin HFA 90 1 puff IH BID PRN 09/21/15 mcg/actuation (8 g)] Budesonide/Formoterol Fumarate 1 aer IH BID PRN 09/21/15 [Symbicort 160-4.5 Mcg Inhaler] Albuterol/Ipratropium [Duoneb 3 3 ml INH RQ4 #0 neb 12/06/17 mg/0.5 mg (3 ml) UD] Lactulose [Enulose] 20 gm PO DAILY PRN udc 12/06/17 Promethazine [Phenergan Syrup] 12.5 mg PO Q6 dose 12/06/17 methylPREDNISolone [Solu-Medrol] 30 mg IVP Q12H ml 12/06/17 Dexamethasone [Decadron] 4 mg PO DAILY tab 12/19/17 Docusate [Colace] 100 mg PO BID cap 12/19/17 - Allergies Allergies/Adverse Reactions: Allergies Allergy/AdvReac Type Severity Reaction Status Date / Time No Known Allergies Allergy Verified 01/20/18 17:30 Review of Systems ROS Statement: Except As Marked, All Systems Reviewed And Found Negative Respiratory: Positive for: Shortness of Breath Physical Exam - Reviewed Nursing Documentation Reviewed: Yes Vital Signs Reviewed: Yes - Physical Exam Appears: Positive for: Non-toxic, No Acute Distress Head Exam: Positive for: ATRAUMATIC, NORMAL INSPECTION, NORMOCEPHALIC Skin: Positive for: Normal Color, Warm, DRY Eye Exam: Positive for: EOMI, Normal appearance, PERRL ENT: Positive for: Normal ENT Inspection Neck: Positive for: Normal, Painless ROM Cardiovascular/Chest: Positive for: Regular Rate, Rhythm Respiratory: Positive for: Decreased Breath Sounds, Wheezing (b/l) Gastrointestinal/Abdominal: Positive for: Normal Exam, Soft. Negative for: Tenderness Back: Positive for: Normal Inspection. Negative for: L CVA Tenderness, R CVA Tenderness Extremity: Positive for: Normal ROM. Negative for: Tenderness, Pedal Edema Neurologic/Psych: Positive for: Alert, Oriented - Laboratory Results Result Diagrams: 01/20/18 18:15 01/20/18 18:15 Interpretation Of Abn Labs: 11.1 wbc and 1020 probnp - ECG ECG: Positive for: Interpreted By Me, Viewed By Me ECG Rhythm: Positive for: Sinus Tachycardia, Nonspecific Changes O2 Sat by Pulse Oximetry: 85 Pulse Ox Interpretation: Abnormal Interpretation Of Abnormal: improved with oxygen - Radiology X-Ray: Interpreted by Me, Viewed By Me X-Ray Interpretation: Other (worseing patchy disease from old) - Progress ED Course And Treament: 1927: Stable. AAOx3. Breathing better. Alert. Spoke with Dr. Torres. Will admit tele. Disposition - Clinical Impression Clinical Impression: COPD exacerbation, CHF (congestive heart failure) - Patient ED Disposition Is Patient to be Admitted: Yes Counseled Patient/Family Regarding: Studies Performed, Diagnosis - Disposition Disposition Time: 19:29 Condition: FAIR - Pt Status Changed To: Hospital Disposition Of: Inpatient - Admit Certification Admit to Inpatient:: After my assessment, the patient will require hospitalization for at least two midnights. This is because of the severity of symptoms shown, intensity of services needed, and/or the medical risk in this patient being treated as an outpatient. - POA Present On Arrival: None
[2018-01-20] MEDS: Sodium Chloride 0.9% 1,000 ML IV STA ×2 (18:18→19:42)
[2018-01-20 18:34] LABS: ABG ALLEN TEST YES; ARTERIAL BLOOD GAS HCO3 29.9 mmol/L (21-28); ARTERIAL BLOOD GAS O2 SAT 86.4 % (95-98); ARTERIAL BLOOD GAS PCO2 46 mm/Hg (35-45); ARTERIAL BLOOD GAS PH 7.45 (7.35-7.45); ARTERIAL BLOOD GAS PO2 47 mm/Hg (80-100); ARTERIAL BLOOD GAS TCO2 33.4 mmol/L (22-28)
[2018-01-20 18:37] LABS: BASO # 0.1 K/uL (0.0-0.2); BASO % 0.6 % (0.0-2.0); EOS # 0.2 K/uL (0.0-0.7); EOS % 1.4 % (0.0-4.0); HEMOGLOBIN 13.1 g/dL (12.0-18.0); LYMPH # 0.7 K/uL (1.0-4.3); LYMPH % 5.9 % (20.0-40.0); MEAN CELL VOLUME 92.7 fl (80.0-94.0); MEAN CORPUSCULAR HEMOGLOBIN 31.9 pg (27.0-31.0); MEAN CORPUSCULAR HGB CONC 34.4 g/dL (33.0-37.0); MEAN PLATELET VOLUME 7.4 fl (7.2-11.7); MONO # 0.8 K/uL (0.0-0.8); MONO % 6.9 % (0.0-10.0); NEUT # 9.5 K/uL (1.8-7.0); NEUT % 85.2 % (50.0-75.0); NRBC % 0.1 % (0.0-0.0); PLATELET COUNT 436 K/uL (130-400); RED CELL DISTRIBUTION WIDTH 14.5 % (11.5-14.5); WHITE BLOOD COUNT 11.1 K/uL (4.8-10.8)
[2018-01-20 18:41] LABS: ALB/GLOB RATIO 0.9 (1.0-2.1); ALBUMIN 3.5 g/dL (3.5-5.0); ALT/SGPT 21 U/L (21-72); AST/SGOT 24 U/L (17-59); BLOOD UREA NITROGEN 10 mg/dl (9-20); CALCIUM 8.6 mg/dL (8.4-10.2); GFR NON-AFRICAN AMERICAN > 60
[2018-01-20 18:42] LABS: INR 1.2
[2018-01-20 18:44] LABS: PARTIAL THROMBOPLASTIN TIME 34.5 Seconds (25.6-37.1)
[2018-01-20 18:53] LABS: B-TYPE NATRIURETIC PEPTIDE 1020 pg/ml (0-900)
[2018-01-20 20:26] LABS: BANDS 4 % (0-2); EOSINOPHIL 1 % (0-7); LYMPHOCYTE 4 % (20-50); MONOCYTE 1 % (0-10); NEUTROPHIL 88 % (42-75); PLATELET ESTIMATE SLIGHTLY INCREASED (NORMAL); REACTIVE LYMPHOCYTES 2 % (0-0); TOTAL CELLS COUNTED 100
[2018-01-20 20:30] LABS: OVALOCYTES SLIGHT; STOMATOCYTES SLIGHT
[2018-01-21] MEDS ORDERED: Sodium Chloride 3% for Inhalation 4 ML VIAL.NEB IH PRN (07:35)
[2018-01-21] MEDS ORDERED: Promethazine/Cod 6.25mg-10mg/5ml Syr UD PO PRN (07:38)
--- NOTE | 2018-01-21 08:40 | RAD ---
Date of service: 01/20/2018 HISTORY: Sepsis Patient COMPARISON: Chest radiograph dated 12/12/2017 FINDINGS: LUNGS: Grossly stable appearance of bilateral predominantly upper lobe cystic bronchiectasis and fibrotic changes. PLEURA: Right basal lateral pleural thickening. No appreciable pneumothorax. CARDIOVASCULAR: Mild aortic atherosclerotic calcifications. Cardiomediastinal silhouette within normal limits. OSSEOUS STRUCTURES: Unchanged VISUALIZED UPPER ABDOMEN: Normal. OTHER FINDINGS: None. IMPRESSION: No significant interval change. Cyst grossly stable appearance of extensive cystic and fibrotic changes involving the upper lobes.
[2018-01-21] MEDS ORDERED: methylPREDNISolone 40 MG in Sodium Chloride 0.9% 50 ML IV SCH (09:00)
[2018-01-21] MEDS: MethylPREDNISolone 40 mg Vial IVP SCH (11:04)
--- NOTE | 2018-01-21 13:56 | CARD ---
APPROVED REPORT Date of service: 01/20/2018 EKG Measurement Heart [id number] <Conclusion> Sinus tachycardia Otherwise normal ECG
--- NOTE | 2018-01-21 16:04 | CP.PCM.HP ---
History of Present Illness - History of Present Illness History of Present Illness: 72 y/o M, with PMHx : COPD, Pulmonary HTN, TB in 1962, PE, NSTEMI, [facility] be evaluated for moderated SOB x 2 days [facility], increased DOA associated to non productive cough, Pt using nebulizer Tx at home with no improvement. Pt with Hx of TB at 17 y/o, Tx in [place], hospitalized x 2 yrs. 2 [place] , was re-admitted for current TB and after one year, Pt denied any respiratory symptoms. In 1987 he he started having Chronic Bronchitis. In the 's, Pt came to [facility] and worked x 20 yrs in [employer] exposures to dust and cloth from 1981 to 2006 and after, he retired. Worsening symptoms: RUIZ, SOB at rest, chest discomfort with coughing. On DOA: O2 Sat 86.4, pCO2 46, pO2 29.9 Aggravated factor: Exercise. Pt denied: Fever, chills, dizziness, syncope, bloody cough, n/v/d, abdominal pain, urinary symptoms, sick contact. EKG: Sinus tachycardia. CXR: Cyst grossly stable appearance of extensive cystic and fibrotic change involving upper lobes. Present on Admission - Present on Admission Any Indicators Present on Admission: Yes History of DVT/PE: Yes Review of Systems - Constitutional Additional comments: Unknown - EENT Eyes: Requires Corrective Lenses Ears: Other (negative) Nose/Mouth/Throat: Other (negative) - Cardiovascular Cardiovascular: Chest Pain (lightly), Orthopnea - Respiratory Respiratory: Cough, Dyspnea, Dyspnea on Exertion, Pain with Coughing - Gastrointestinal Gastrointestinal: Other (negative) - Genitourinary Genitourinary: Other (negative) - Musculoskeletal Musculoskeletal: Other (negative) - Integumentary Integumentary: Other (negative) - Neurological Neurological: Other (negative) - Psychiatric Psychiatric: Other (negative) - Endocrine Endocrine: Other (negative) - Hematologic/Lymphatic Hematologic: Other (negative) Past Patient History - Infectious Disease Hx of Infectious Diseases: None - Past Medical History & Family History Past Medical History?: Yes Pertinent Family History: Unknown - Past Social History Smoking Status: Former Smoker Alcohol: None Drugs: Denies Home Situation {Lives}: Alone - CARDIAC Hx Cardiac Disorders: Yes (Hx NSTEMI) Hx Heart Attack: Yes (NSTEMI) - PULMONARY Hx Respiratory Disorders: Yes Hx Asthma: Yes Hx Chronic Obstructive Pulmonary Disease (COPD): Yes Hx Pneumonia: Yes Hx Tuberculosis: Yes - NEUROLOGICAL Hx Neurological Disorder: No - HEENT Hx HEENT Problems: No - RENAL Hx Chronic Kidney Disease: No - ENDOCRINE/METABOLIC Hx Endocrine Disorders: No - HEMATOLOGICAL/ONCOLOGICAL Hx Blood Disorders: No Hx AIDS: No Hx Human Immunodeficiency Virus (HIV): No - INTEGUMENTARY Hx Dermatological Problems: No - MUSCULOSKELETAL/RHEUMATOLOGICAL Hx Musculoskeletal Disorders: No Hx Falls: No - GASTROINTESTINAL Hx Gastrointestinal Disorders: No - GENITOURINARY/GYNECOLOGICAL Hx Genitourinary Disorders: No Hx Urinary Tract Infection: No - PSYCHIATRIC Hx Psychophysiologic Disorder: No Hx Substance Use: No - SURGICAL HISTORY Hx Surgeries: No - ANESTHESIA Hx Anesthesia: No Hx Anesthesia Reactions: No Meds Home Medications: Home Medication List Medication Instructions Recorded Confirmed Type Acetylcysteine [Mucomyst 10% 4ML] 3 ml IH RTID millie 01/25/18 Rx Albuterol/Ipratropium [Duoneb 3 3 ml INH RQ6 neb 01/25/18 Rx mg/0.5 mg (3 ml) UD] Cefepime [Maxipime] 1 gm IV Q8 #15 vial 01/25/18 Rx Moxifloxacin IV 400mg/250ml NS 400 mg IVPB DAILY #5 bag 01/25/18 Rx [Avelox IV 400mg/250ml NS] methylPREDNISolone [Solu-Medrol] 40 mg IVP Q12 ml 01/25/18 Rx Allergies/Adverse Reactions: Allergies Allergy/AdvReac Type Severity Reaction Status Date / Time No Known Allergies Allergy Verified 01/26/18 12:13 Physical Exam - Constitutional Appears: No Acute Distress - Head Exam Head Exam: NORMAL INSPECTION - Eye Exam Eye Exam: PERRL - ENT Exam ENT Exam: Normal Exam - Neck Exam Neck exam: Positive for: Normal Inspection - Respiratory Exam Respiratory Exam: Decreased Breath Sounds (at bases), Wheezes (b/l) - Cardiovascular Exam Cardiovascular Exam: REGULAR RHYTHM - GI/Abdominal Exam GI & Abdominal Exam: Normal Bowel Sounds, Soft - Extremities Exam Extremities exam: Positive for: normal inspection - Back Exam Back exam: NORMAL INSPECTION - Neurological Exam Neurological exam: Alert, Oriented x3 Additional comments: No motor/sensory deficit. - Psychiatric Exam Psychiatric exam: Normal Mood - Skin Skin Exam: Warm Results - Vital Signs Recent Vital Signs: Last Vital Signs Temp 97.5 F L 01/21/18 08:00 Pulse 76 01/21/18 09:00 Resp 18 01/21/18 08:00 BP 118/66 01/21/18 08:00 Pulse Ox 93 L 01/21/18 08:00 nadeem Reyez - Labs Result Diagrams: 01/25/18 05:25 01/25/18 05:37 Labs: Laboratory Results - last 24 hr 01/20/18 01/20/18 01/20/18 18:07 18:15 18:15 WBC 11.1 H RBC 4.10 L Hgb 13.1 Hct 38.0 MCV 92.7 MCH 31.9 H MCHC 34.4 RDW 14.5 Plt Count 436 H D MPV 7.4 Neut % (Auto) 85.2 H Lymph % (Auto) 5.9 L [place] % (Auto) 6.9 Eos % (Auto) 1.4 Baso % (Auto) 0.6 Neut # (Auto) 9.5 H Lymph # (Auto) 0.7 L [place] # (Auto) 0.8 Eos # (Auto) 0.2 Baso # (Auto) 0.1 Neutrophils % (Manual) 88 H Band Neutrophils % 4 H Lymphocytes % (Manual) 4 L Reactive Lymphs % 2 H Monocytes % (Manual) 1 Eosinophils % (Manual) 1 Platelet Estimate Slightly increased H Ovalocytes Slight Stomatocytes Slight PT INR APTT pCO2 46 H pO2 47 L HCO3 29.9 H ABG pH 7.45 ABG Total CO2 33.4 H ABG O2 Saturation 86.4 L ABG Base Excess 6.9 H Danny Test Yes ABG Potassium 4.4 A-a O2 Difference 45.0 Sodium 131.0 L 135 Chloride 99.0 97 L Glucose 144 H Lactate 0.8 FiO2 21.0 Potassium 5.0 Carbon Dioxide 31 H Anion Gap 12 BUN 10 Creatinine 0.6 L Est GFR ( Amer) > 60 Est GFR (Non-Af Amer) > 60 Random Glucose 182 H Calcium 8.6 Phosphorus 3.4 Magnesium 2.1 Total Bilirubin 0.5 AST 24 ALT 21 D Alkaline Phosphatase 76 Troponin I 0.0190 NT-Pro-B Natriuret Pep 1020 H Total Protein 7.3 Albumin 3.5 Globulin 3.8 Albumin/Globulin Ratio 0.9 L Arterial Blood Potassium 4.4 01/20/18 18:15 WBC RBC Hgb Hct MCV MCH MCHC RDW Plt Count MPV Neut % (Auto) Lymph % (Auto) [place] % (Auto) Eos % (Auto) Baso % (Auto) Neut # (Auto) Lymph # (Auto) [place] # (Auto) Eos # (Auto) Baso # (Auto) Neutrophils % (Manual) Band Neutrophils % Lymphocytes % (Manual) Reactive Lymphs % Monocytes % (Manual) Eosinophils % (Manual) Platelet Estimate Ovalocytes Stomatocytes PT 14.0 H INR 1.2 APTT 34.5 pCO2 pO2 HCO3 ABG pH ABG Total CO2 ABG O2 Saturation ABG Base Excess Danny Test ABG Potassium A-a O2 Difference Sodium Chloride Glucose Lactate FiO2 Potassium Carbon Dioxide Anion Gap BUN Creatinine Est GFR ( Amer) Est GFR (Non-Af Amer) Random Glucose Calcium Phosphorus Magnesium Total Bilirubin AST ALT Alkaline Phosphatase Troponin I NT-Pro-B Natriuret Pep Total Protein Albumin Globulin Albumin/Globulin Ratio Arterial Blood Potassium reviewed J.P. - EKG Data EKG comments: reviewed J.P. - Imaging and Cardiology Chest x-ray Status: Report reviewed by me (Aissatou) Assessment & Plan (1) COPD exacerbation Status: Chronic Priority: High (2) Hx of non-ST elevation myocardial infarction (NSTEMI) Status: Chronic (3) Hx pulmonary embolism Status: Chronic (4) History of TB (tuberculosis) Status: Chronic - Assessment and Plan (Free Text) Plan: F/U Blood and Sputum C-S, CT Chest, Continue O2 NC 2 L/M, Cefepime, Duoneb, Solu-Medrol, Phenergan with Co and rest of Tx. - Date & Time Date: 01/21/18
[2018-01-21] MEDS: Albuterol-Ipratrop 3 mg / 0.5 (3 ml) UD INH SCH (19:43)
[2018-01-21] MEDS: Cefepime 1 GM in Sodium Chloride 0.9% 100 ML IVPB SCH (20:33)
[2018-01-22] MEDS: MethylPREDNISolone 40 mg Vial IVP SCH ×3 (00:42→17:39)
[2018-01-22] MEDS: Albuterol-Ipratrop 3 mg / 0.5 (3 ml) UD INH SCH ×4 (01:00→19:35)
[2018-01-22] MEDS: Cefepime 1 GM in Sodium Chloride 0.9% 100 ML IVPB SCH ×2 (09:06→21:06)
[2018-01-22 11:11] LABS: ABG ALLEN TEST YES; ARTERIAL BLOOD GAS HCO3 28.9 mmol/L (21-28); ARTERIAL BLOOD GAS HEMOGLOBIN 13.7 g/dL (11.7-17.4); ARTERIAL BLOOD GAS O2 CAPACITY 18.5 mL/dL (16-24); ARTERIAL BLOOD GAS O2 SAT 81.3 % (95-98); ARTERIAL BLOOD GAS PCO2 55 mm/Hg (35-45); ARTERIAL BLOOD GAS PH 7.38 (7.35-7.45); ARTERIAL BLOOD GAS PO2 41 mm/Hg (80-100); ARTERIAL BLOOD GAS TCO2 34.2 mmol/L (22-28)
--- NOTE | 2018-01-22 13:54 | CT ---
Date of service: 01/22/2018 PROCEDURE: CT Chest without contrast HISTORY: COPD COMPARISON: Contrast chest CT 12/12/2017. TECHNIQUE: Contiguous axial images were obtained through the chest without intravenous contrast enhancement. Sagittal and coronal reconstructions were performed. Radiation dose: Total exam DLP = 459.08 mGy-cm. This CT exam was performed using one or more of the following dose reduction techniques: Automated exposure control, adjustment of the mA and/or kV according to patient size, and/or use of iterative reconstruction technique. FINDINGS: LUNGS: Extensive centrilobular emphysematous changes are reiterated with marked volume loss of the right upper and lower lobes and right middle lobe somewhat. Glass opacity and limited consolidation are now identified affecting the bilateral lower lobes appears some of this could be a function of dependent atelectasis and further clinical correlation is recommended. Central airways are again remarkable bronchiectasis as well as peripheral airways and some contain fluid levels though this is an infrequent finding. MEDIASTINUM: Unremarkable thoracic aorta. No aneurysm. Normal sized heart. Main pulmonary artery is dilated to 4.4 cm suggestive of pulmonary artery hypertension. Ventricular chambers are poorly evaluated due lack of oral contrast material. Extensive coronary artery atherosclerosis identified. No gross lymphadenopathy. Trace thoracic aortic atherosclerotic calcification. PLEURA: No pleural fluid. No pneumothorax. BONES: No fracture. No destructive lesion. UPPER ABDOMEN: Pneumobilia is appreciated status post prior cholecystectomy once again. OTHER FINDINGS: None. IMPRESSION: 1. Limited bilateral lower lobe infiltrates are questioned developing. Clinically correlate further as they are partially seen within the dependent bilateral lower lobes and at least part may be affected by a dependent atelectasis. No pleural effusion pneumothorax or significant lymphadenopathy identified grossly. 2. Severe centrilobular emphysematous changes are reiterated with marked fibrosis of the right lung resulting in volume mediastinal shift to the right. Extensive bronchiectasis is seen with a few airways with air-fluid levels potentially reflecting infectious process. Further clinical correlation advised. 3. Incidental prior cholecystectomy reiterated as well as limited pneumobilia in the central intrahepatic biliary tree.
--- NOTE | 2018-01-22 15:30 | CP.PCM.PN ---
Subjective - Date & Time of Evaluation Date of Evaluation: 01/22/18 - Subjective Subjective: F/U COPD Exacerabation. Pt with no SOB with O2, dry cough on and off. Objective - Vital Signs/Intake and Output Vital Signs (last 24 hours): Temp Pulse Resp BP Pulse Ox 97.6 F 80 18 110/62 95 01/22/18 12:17 01/22/18 12:17 01/22/18 12:17 01/22/18 12:17 01/22/18 12:17 - Medications Medications: Current Medications Albuterol/Ipratropium (Duoneb 3 Mg/0.5 Mg (3 Ml) Ud) 3 ml INH RQ6 [facility] Last Admin: 01/22/18 01:00 Dose: 3 ml Cefepime HCl 1 gm/ Sodium (Chloride) 100 mls @ 100 mls/hr IVPB Q12 [facility]; Protocol Last Admin: 01/22/18 09:06 Dose: 100 mls/hr Methylprednisolone (Solu-Medrol) 40 mg IVP Q8 [facility] Last Admin: 01/22/18 09:04 Dose: 40 mg Montelukast Sodium (Singulair) 10 mg PO DAILY [facility] Last Admin: 01/22/18 09:04 Dose: 10 mg Promethazine HCl (Phenergan) 12.5 mg PO Q6 [facility] - Labs Labs: 01/20/18 18:15 01/20/18 18:15 PT 14.0 Seconds (9.8-13.1) H 01/20/18 18:15 INR 1.2 01/20/18 18:15 APTT 34.5 Seconds (25.6-37.1) 01/20/18 18:15 - Constitutional Appears: No Acute Distress - Head Exam Head Exam: NORMAL INSPECTION - Eye Exam Eye Exam: PERRL - ENT Exam ENT Exam: Normal Exam - Neck Exam Neck Exam: Normal Inspection - Respiratory Exam Respiratory Exam: Decreased Breath Sounds (at bases), Wheezes (b/l) - Cardiovascular Exam Cardiovascular Exam: REGULAR RHYTHM - GI/Abdominal Exam GI & Abdominal Exam: Soft, Normal Bowel Sounds - Extremities Exam Extremities Exam: Normal Inspection - Back Exam Back Exam: NORMAL INSPECTION - Neurological Exam Neurological Exam: Alert, Oriented x3. absent: Motor Sensory Deficit - Psychiatric Exam Psychiatric exam: Normal Mood - Skin Skin Exam: Warm Assessment and Plan (1) COPD exacerbation Status: Chronic (2) Hx of non-ST elevation myocardial infarction (NSTEMI) Status: Chronic (3) Hx pulmonary embolism Status: Chronic (4) History of TB (tuberculosis) Status: Chronic - Assessment and Plan (Free Text) Plan: ABG showed marked Hypoxemia of O2, f/u CT Chest today, continue Cefepime, Solu- Medrol and current Tx.
[2018-01-23] MEDS: Albuterol-Ipratrop 3 mg / 0.5 (3 ml) UD INH SCH ×4 (01:16→19:03)
[2018-01-23] MEDS: MethylPREDNISolone 40 mg Vial IVP SCH ×4 (01:19→16:51)
[2018-01-23 06:04] LABS: HEMOGLOBIN 12.5 g/dL (12.0-18.0); MEAN CELL VOLUME 93.3 fl (80.0-94.0); MEAN CORPUSCULAR HEMOGLOBIN 31.5 pg (27.0-31.0); MEAN CORPUSCULAR HGB CONC 33.7 g/dL (33.0-37.0); RBC 3.97 Mil/uL (4.40-5.90); RED CELL DISTRIBUTION WIDTH 14.6 % (11.5-14.5); WHITE BLOOD COUNT 9.2 K/uL (4.8-10.8)
[2018-01-23 06:12] LABS: BLOOD UREA NITROGEN 17 mg/dl (9-20); CALCIUM 8.5 mg/dL (8.4-10.2); GFR NON-AFRICAN AMERICAN > 60
[2018-01-23] MEDS: Cefepime 1 GM in Sodium Chloride 0.9% 100 ML IVPB SCH ×3 (10:12→21:09)
--- NOTE | 2018-01-23 11:49 | CP.PCM.CON ---
History of Present Illness - History of Present Illness History of Present Illness: 72 y/o M, Hx of COPD, PE, NSTEMI, is admitted to [facility] with worsening SOB and dry cough despite bronchodilators at home CT shows moderate bronchiectasis / infiltrates PMH TB at 17 y/o (remained in the hospital x 2 years in [place] ) Pt came to [facility] in the 70's, worked x 20 yrs with exposures to dust Pt denied: CP, syncope, numbness, dizziness, hemoptysis, n/v/d, abdominal pain, urinary symptoms, recent travel out of [facility]. Review of Systems - Review of Systems All systems: reviewed and no additional remarkable complaints except - Constitutional Constitutional: As Per HPI, Chills, Fever, Malaise - EENT Eyes: As Per HPI. absent: Blind Spots, Blurred Vision, Change in Vision, Decreased Night Vision, Diplopia, Discharge, Dry Eye, Exophthalmos, Floaters, Irritation, Itchy Eyes, Loss of Peripheral Vision, Pain, Photophobia, Requires Corrective Lenses, Sees Flashes, Spots in Vision, Tunnel Vision, Other Visual Disturbances, Loss of Vision, Other Ears: absent: As Per HPI, Decreased Hearing, Ear Discharge, Ear Pain, Tinnitus, Abnormal Hearing, Disequilibrium, Dizziness, Other Nose/Mouth/Throat: absent: As Per HPI, Epistaxis, Nasal Congestion, Nasal Discharge, Nasal Obstruction, Nasal Trauma, Nose Pain, Post Nasal Drip, Sinus Pain, Sinus Pressure, Bleeding Gums, Change in Voice, Dental Pain, Dry Mouth, Dysphagia, Halitosis, Hoarsness, Lip Swelling, Mouth Lesions, Mouth Pain, Odynophagia, Sore Throat, Throat Swelling, Tongue Swelling, Facial Pain, Neck Pain, Neck Mass, Other - Cardiovascular Cardiovascular: As Per HPI - Respiratory Respiratory: Cough, Dyspnea, Dyspnea on Exertion - Gastrointestinal Gastrointestinal: absent: As Per HPI, Abdominal Pain, Belching, Bloating, Change in Bowel Habits, Change in Stool Character, Coffee Ground Emesis, Constipation, Cramping, Diarrhea, Dyspepsia, Dysphagia, Early Satiety, Excessive Flatus, Fecal Incontinence, Heartburn, Hematemesis, Hematochezia, Loose Stools, Melena, Nausea, Odynophagia, Temesmus, Vomiting, Other - Genitourinary Genitourinary: absent: As Per HPI, Change in Urinary Stream, Difficulty Urina ting, Dysuria, Flank Pain, Hematuria, Pyuria, Nocturia, Urinary Incontinence, Urinary Frequency, Urinary Hesitance, Urinary Urgency, Voiding Freq/Small Amts, Freq UTI, Hx Renal/Bladder Calculi, Hx /Renal Surgery, Bladder Distension, Other - Musculoskeletal Musculoskeletal: absent: As Per HPI, Abnormal Gait, Arthralgias, Atrophy, Back Pain, Deformity, Joint Swelling, Limited Range of Motion, Loss of Height, Muscle Cramps, Muscle Weakness, Myalgias, Neck Pain, Numbness, Radiating Pain into Limb, Stiffness, Tingling, Other - Integumentary Integumentary: absent: As Per HPI, Acne, Alopecia, Bleeding Lesions, Change in Hair, Change in Nails, Change in Pigmentation, Changing Lesions, Dry Skin, Erythema, Furuncle, Hirsutism, Lesions, New Lesions, Non-Healing Lesions, Photosensitivity, Pruritus, Rash, Skin Pain, Skin Ulcer, Sores, Striae, Swelling, Unusual Bruising, Wounds, Jaundice, Other - Neurological Neurological: absent: As Per HPI, Abnormal Gait, Abnormal Hearing, Abnormal Movements, Abnormal Speech, Behavioral Changes, Burning Sensations, Confusion, Convulsions, Disequilibrium, Dizziness, Numbness, Focal Weakness, Frequent Falls, Headaches, Lack of Coordination, Loss of Vision, Memory Loss, Paresthesias, Radicular Pain, Restless Legs, Sensory Deficit, Syncope, Tingling, Tremor, Vertigo, Weakness, Other Visual Disturbances, Other - Psychiatric Psychiatric: absent: As Per HPI, Abnormal Sleep Pattern, Anhedonia, Anxiety, Au ditory Hallucinations, Behavioral Changes, Change in Appetite, Change in Libido, Confusion, Depression, Difficulty Concentrating, Hallucinations, Homicidal Ideation, Hopelessness, Irritability, Memory Loss, Mood Swings, Panic Attacks, Paranoia, Suicidal Ideation, Visual Hallucinations, Tactile Hallucinations, Other - Endocrine Endocrine: absent: As Per HPI, Change in Body Appearance, Change in Libido, Cold Intolorance, Deepening of Voice, Excessive Sweating, Fatigue, Flushing, Heat Intolorance, Increase in Ring/Shoe/Hat Size, Palpitations, Polydipsia, Nikita yphagia, Polyuria, Other - Hematologic/Lymphatic Hematologic: absent: As Per HPI, Easy Bleeding, Easy Bruising, Lymphadenopathy, Other Past Patient History - Infectious Disease Hx of Infectious Diseases: None - Past Medical History & Family History Past Medical History?: Yes - Past Social History Smoking Status: Former Smoker Alcohol: None Drugs: Denies Home Situation {Lives}: Alone - CARDIAC Hx Cardiac Disorders: Yes (Hx NSTEMI) Hx Heart Attack: Yes (NSTEMI) - PULMONARY Hx Respiratory Disorders: Yes Hx Asthma: Yes Hx Chronic Obstructive Pulmonary Disease (COPD): Yes Hx Pneumonia: Yes Hx Tuberculosis: Yes - NEUROLOGICAL Hx Neurological Disorder: No - HEENT Hx HEENT Problems: No - RENAL Hx Chronic Kidney Disease: No - ENDOCRINE/METABOLIC Hx Endocrine Disorders: No - HEMATOLOGICAL/ONCOLOGICAL Hx Blood Disorders: No Hx AIDS: No Hx Human Immunodeficiency Virus (HIV): No - INTEGUMENTARY Hx Dermatological Problems: No - MUSCULOSKELETAL/RHEUMATOLOGICAL Hx Musculoskeletal Disorders: No Hx Falls: No - GASTROINTESTINAL Hx Gastrointestinal Disorders: No - GENITOURINARY/GYNECOLOGICAL Hx Genitourinary Disorders: No Hx Urinary Tract Infection: No - PSYCHIATRIC Hx Psychophysiologic Disorder: No Hx Substance Use: No - SURGICAL HISTORY Hx Surgeries: No - ANESTHESIA Hx Anesthesia: No Hx Anesthesia Reactions: No Meds Allergies/Adverse Reactions: Allergies Allergy/AdvReac Type Severity Reaction Status Date / Time No Known Allergies Allergy Verified 01/20/18 17:30 - Medications Medications: Current Medications Albuterol/Ipratropium (Duoneb 3 Mg/0.5 Mg (3 Ml) Ud) 3 ml INH RQ6 [facility] Last Admin: 01/23/18 07:08 Dose: 3 ml Cefepime HCl 1 gm/ Sodium (Chloride) 100 mls @ 100 mls/hr IVPB Q12 [facility]; Protocol Last Admin: 01/23/18 10:12 Dose: 100 mls/hr Methylprednisolone (Solu-Medrol) 40 mg IVP Q8 [facility] Last Admin: 01/23/18 10:14 Dose: 40 mg Montelukast Sodium (Singulair) 10 mg PO DAILY [facility] Last Admin: 01/23/18 10:14 Dose: 10 mg Promethazine HCl (Phenergan) 12.5 mg PO Q6 [facility] Last Admin: 01/23/18 10:13 Dose: 12.5 mg Physical Exam - Constitutional Appears: Non-toxic, Chronically Ill - Head Exam Head Exam: NORMOCEPHALIC - Eye Exam Eye Exam: EOMI, Normal appearance, PERRL Pupil Exam: NORMAL ACCOMODATION - ENT Exam ENT Exam: Mucous Membranes Dry, Normal Oropharynx - Neck Exam Neck exam: Positive for: Normal Inspection - Respiratory Exam Respiratory Exam: Decreased Breath Sounds, Rhonchi - Cardiovascular Exam Cardiovascular Exam: REGULAR RHYTHM, +S1, +S2 - GI/Abdominal Exam GI & Abdominal Exam: Diminished Bowel Sounds, Soft - Rectal Exam Rectal Exam: Deferred - Exam Exam: NORMAL INSPECTION - Extremities Exam Extremities exam: Positive for: normal inspection - Back Exam Back exam: FULL ROM, NORMAL INSPECTION. absent: CVA tenderness (L), CVA tenderness (R), muscle spasm, paraspinal tenderness, rash noted, tenderness, vertebral tenderness - Neurological Exam Neurological exam: Alert, CN II-XII Intact, Oriented x3, Reflexes Normal - Psychiatric Exam Psychiatric exam: Normal Mood - Skin Skin Exam: Dry, Intact Results - Vital Signs Recent Vital Signs: Last Vital Signs Temp 97.5 F L 01/23/18 08:08 Pulse 82 01/23/18 08:08 Resp 18 01/23/18 08:08 BP 116/69 01/23/18 08:08 Pulse Ox 95 01/23/18 08:08 - Labs Result Diagrams: 01/23/18 04:20 01/23/18 04:20 Labs: Laboratory Results - last 24 hr 01/23/18 01/23/18 04:20 04:20 WBC 9.2 RBC 3.97 L Hgb 12.5 Hct 37.0 MCV 93.3 MCH 31.5 H MCHC 33.7 RDW 14.6 H Plt Count 436 H Sodium 136 Potassium 4.7 Chloride 97 L Carbon Dioxide 33 H Anion Gap 11 BUN 17 Creatinine 0.6 L Est GFR ( Amer) > 60 Est GFR (Non-Af Amer) > 60 Random Glucose 155 H Calcium 8.5 Assessment & Plan (1) Bronchiectasis Status: Acute (2) COPD exacerbation Status: Chronic Priority: High (3) Hx of non-ST elevation myocardial infarction (NSTEMI) Status: Chronic (4) Hx pulmonary embolism Status: Chronic - Assessment and Plan (Free Text) Assessment: aswait cultures has hx of old TB 'if symptoms persist may need bronchoscopy / AFB smears and cultures agree with IV antibiotics
--- NOTE | 2018-01-23 14:18 | CP.PCM.PN ---
Subjective - Date & Time of Evaluation Date of Evaluation: 01/23/18 - Subjective Subjective: F/U COPD Exacerbation. Pt with no SOB on O2, coughing with scant yellowish phlegms. Objective - Vital Signs/Intake and Output Vital Signs (last 24 hours): Temp Pulse Resp BP Pulse Ox 97.5 F L 75 18 121/68 96 01/23/18 12:30 01/23/18 12:30 01/23/18 12:30 01/23/18 12:30 01/23/18 12:30 - Medications Medications: Current Medications Albuterol/Ipratropium (Duoneb 3 Mg/0.5 Mg (3 Ml) Ud) 3 ml INH RQ6 [facility] Last Admin: 01/23/18 13:25 Dose: 3 ml Cefepime HCl 1 gm/ Sodium (Chloride) 100 mls @ 100 mls/hr IVPB Q12 [facility]; Protocol Last Admin: 01/23/18 10:12 Dose: 100 mls/hr Methylprednisolone (Solu-Medrol) 40 mg IVP Q8 [facility] Last Admin: 01/23/18 10:14 Dose: 40 mg Montelukast Sodium (Singulair) 10 mg PO DAILY [facility] Last Admin: 01/23/18 10:14 Dose: 10 mg Promethazine HCl (Phenergan) 12.5 mg PO Q6 [facility] Last Admin: 01/23/18 10:13 Dose: 12.5 mg - Labs Labs: 01/23/18 04:20 01/23/18 04:20 PT 14.0 Seconds (9.8-13.1) H 01/20/18 18:15 INR 1.2 01/20/18 18:15 APTT 34.5 Seconds (25.6-37.1) 01/20/18 18:15 - Constitutional Appears: No Acute Distress - Head Exam Head Exam: NORMAL INSPECTION - Eye Exam Eye Exam: PERRL - ENT Exam ENT Exam: Normal Exam - Neck Exam Neck Exam: Normal Inspection - Respiratory Exam Respiratory Exam: Decreased Breath Sounds (at bases), Wheezes (b/l) - Cardiovascular Exam Cardiovascular Exam: REGULAR RHYTHM - GI/Abdominal Exam GI & Abdominal Exam: Soft, Normal Bowel Sounds - Extremities Exam Extremities Exam: Normal Inspection - Back Exam Back Exam: NORMAL INSPECTION - Neurological Exam Neurological Exam: Alert, Oriented x3. absent: Motor Sensory Deficit - Psychiatric Exam Psychiatric exam: Normal Mood - Skin Skin Exam: Warm Assessment and Plan (1) COPD exacerbation Status: Chronic (2) Hx of non-ST elevation myocardial infarction (NSTEMI) Status: Chronic (3) Hx pulmonary embolism Status: Chronic (4) History of TB (tuberculosis) Status: Chronic - Assessment and Plan (Free Text) Plan: CT Cheat showed: B/L Lower Lobe PNA, chronic changes, F/U Sputum C-S, Cefepime, ID consult.
[2018-01-24] MEDS: MethylPREDNISolone 40 mg Vial IVP SCH ×3 (00:47→16:41)
[2018-01-24] MEDS: Albuterol-Ipratrop 3 mg / 0.5 (3 ml) UD INH SCH ×4 (01:05→19:36)
[2018-01-24] MEDS: Cefepime 1 GM in Sodium Chloride 0.9% 100 ML IVPB SCH ×2 (08:47→16:30)
--- NOTE | 2018-01-24 13:42 | CP.PCM.PN ---
Subjective - Date & Time of Evaluation Date of Evaluation: 01/24/18 Time of Evaluation: 09:00 - Subjective Subjective: improvinhg on iV rx unable to produce sputum consider FOB / BAL with AFB smears / cultures to r/o MAC Objective - Vital Signs/Intake and Output Vital Signs (last 24 hours): Temp Pulse Resp BP Pulse Ox 97.9 F 94 H 18 112/75 96 01/24/18 12:06 01/24/18 12:06 01/24/18 12:06 01/24/18 12:06 01/24/18 12:06 - Medications Medications: Current Medications Acetylcysteine (Mucomyst 10% 4ml) 3 ml IH RTID [facility] Albuterol/Ipratropium (Duoneb 3 Mg/0.5 Mg (3 Ml) Ud) 3 ml INH RQ6 [facility] Last Admin: 01/24/18 13:28 Dose: 3 ml Cefepime HCl 1 gm/ Sodium (Chloride) 100 mls @ 100 mls/hr IVPB Q8 [facility]; Protocol Last Admin: 01/24/18 08:47 Dose: 100 mls/hr Moxifloxacin HCl (Avelox Iv 400mg/250ml Ns) 400 mg in 250 mls @ 250 mls/hr IVPB DAILY [facility]; Protocol Methylprednisolone (Solu-Medrol) 40 mg IVP Q8 [facility] Last Admin: 01/24/18 08:49 Dose: 40 mg Montelukast Sodium (Singulair) 10 mg PO DAILY [facility] Last Admin: 01/24/18 08:48 Dose: 10 mg Promethazine HCl (Phenergan) 12.5 mg PO Q6 [facility] Last Admin: 01/24/18 11:51 Dose: 12.5 mg - Labs Labs: 01/23/18 04:20 01/23/18 04:20 PT 14.0 Seconds (9.8-13.1) H 01/20/18 18:15 INR 1.2 01/20/18 18:15 APTT 34.5 Seconds (25.6-37.1) 01/20/18 18:15 - Constitutional Appears: Non-toxic, Chronically Ill - Head Exam Head Exam: NORMOCEPHALIC - Eye Exam Eye Exam: absent: Scleral icterus - ENT Exam ENT Exam: Mucous Membranes Dry - Neck Exam Neck Exam: absent: Lymphadenopathy - Respiratory Exam Respiratory Exam: Decreased Breath Sounds - Cardiovascular Exam Cardiovascular Exam: REGULAR RHYTHM - GI/Abdominal Exam GI & Abdominal Exam: Distended, Soft - Rectal Exam Rectal Exam: Deferred - Exam Exam: NORMAL INSPECTION - Extremities Exam Extremities Exam: absent: Pedal Edema - Back Exam Back Exam: absent: CVA tenderness (L), CVA tenderness (R) Assessment and Plan (1) Bronchiectasis Status: Acute (2) COPD exacerbation Status: Chronic (3) Hx of non-ST elevation myocardial infarction (NSTEMI) Status: Chronic (4) Hx pulmonary embolism Status: Chronic
--- NOTE | 2018-01-24 14:34 | CP.PCM.PN ---
Subjective - Date & Time of Evaluation Date of Evaluation: 01/24/18 - Subjective Subjective: F/U COPD Exacerbation. No SOB with O2, cough with scant of yellowish phlegms, chest congestion improved. Objective - Vital Signs/Intake and Output Vital Signs (last 24 hours): Temp Pulse Resp BP Pulse Ox 97.9 F 94 H 18 112/75 96 01/24/18 12:06 01/24/18 12:06 01/24/18 12:06 01/24/18 12:06 01/24/18 12:06 - Medications Medications: Current Medications Acetylcysteine (Mucomyst 10% 4ml) 3 ml IH RTID [facility] Albuterol/Ipratropium (Duoneb 3 Mg/0.5 Mg (3 Ml) Ud) 3 ml INH RQ6 [facility] Last Admin: 01/24/18 13:28 Dose: 3 ml Cefepime HCl 1 gm/ Sodium (Chloride) 100 mls @ 100 mls/hr IVPB Q8 [facility]; Protocol Last Admin: 01/24/18 08:47 Dose: 100 mls/hr Moxifloxacin HCl (Avelox Iv 400mg/250ml Ns) 400 mg in 250 mls @ 250 mls/hr IVPB DAILY [facility]; Protocol Methylprednisolone (Solu-Medrol) 40 mg IVP Q8 [facility] Last Admin: 01/24/18 08:49 Dose: 40 mg Montelukast Sodium (Singulair) 10 mg PO DAILY [facility] Last Admin: 01/24/18 08:48 Dose: 10 mg Promethazine HCl (Phenergan) 12.5 mg PO Q6 [facility] Last Admin: 01/24/18 11:51 Dose: 12.5 mg - Labs Labs: 01/23/18 04:20 01/23/18 04:20 PT 14.0 Seconds (9.8-13.1) H 01/20/18 18:15 INR 1.2 01/20/18 18:15 APTT 34.5 Seconds (25.6-37.1) 01/20/18 18:15 - Constitutional Appears: No Acute Distress - Head Exam Head Exam: NORMAL INSPECTION - Eye Exam Eye Exam: PERRL - ENT Exam ENT Exam: Normal Exam - Neck Exam Neck Exam: Normal Inspection - Respiratory Exam Respiratory Exam: Decreased Breath Sounds (t bases), Wheezes (scattered b/l) - Cardiovascular Exam Cardiovascular Exam: REGULAR RHYTHM - GI/Abdominal Exam GI & Abdominal Exam: Soft, Normal Bowel Sounds - Extremities Exam Extremities Exam: Normal Inspection - Back Exam Back Exam: NORMAL INSPECTION - Neurological Exam Neurological Exam: Alert, Oriented x3. absent: Motor Sensory Deficit - Psychiatric Exam Psychiatric exam: Normal Mood - Skin Skin Exam: Warm Assessment and Plan (1) COPD exacerbation Status: Chronic (2) Hx pulmonary embolism Status: Chronic (3) Hx of non-ST elevation myocardial infarction (NSTEMI) Status: Chronic (4) History of TB (tuberculosis) Status: Chronic - Assessment and Plan (Free Text) Plan: Attempt to transfer to TCU to continue abx Tx, f/u Sputum C-S, U C-S.
[2018-01-24] MEDS: Moxifloxacin IV 400mg/250ml NS 400 MG/250 ML BAG IVPB SCH (16:40)
[2018-01-24] MEDS: Acetylcysteine 10% 4 ML IH SCH ×2 (19:37)
[2018-01-25] MEDS: MethylPREDNISolone 40 mg Vial IVP SCH ×3 (00:16→16:17)
[2018-01-25] MEDS: Cefepime 1 GM in Sodium Chloride 0.9% 100 ML IVPB SCH ×3 (00:24→16:17)
[2018-01-25] MEDS: Albuterol-Ipratrop 3 mg / 0.5 (3 ml) UD INH SCH ×5 (03:11→19:58)
[2018-01-25 05:39] LABS: HEMOGLOBIN 12.9 g/dL (12.0-18.0); MEAN CORPUSCULAR HEMOGLOBIN 31.5 pg (27.0-31.0); MEAN CORPUSCULAR HGB CONC 33.9 g/dL (33.0-37.0); RBC 4.1 Mil/uL (4.40-5.90); RED CELL DISTRIBUTION WIDTH 14.3 % (11.5-14.5); WHITE BLOOD COUNT 12.4 K/uL (4.8-10.8)
[2018-01-25 06:10] LABS: BLOOD UREA NITROGEN 17 mg/dl (9-20); CALCIUM 8.6 mg/dL (8.4-10.2); GFR NON-AFRICAN AMERICAN > 60
[2018-01-25] MEDS: Acetylcysteine 10% 4 ML IH SCH ×3 (08:08→19:58)
[2018-01-25] MEDS: Moxifloxacin IV 400mg/250ml NS 400 MG/250 ML BAG IVPB SCH (10:46)
--- NOTE | 2018-01-25 11:09 | CT ---
Date of service: 01/25/2018 PROCEDURE: CT Chest without contrast HISTORY: f/u COMPARISON: CT chest dated 01/22/2018. TECHNIQUE: Contiguous axial images were obtained through the chest without intravenous contrast enhancement. Sagittal and coronal reconstructions were performed. Radiation dose: Total exam DLP = 514.69 mGy-cm. This CT exam was performed using one or more of the following dose reduction techniques: Automated exposure control, adjustment of the mA and/or kV according to patient size, and/or use of iterative reconstruction technique. FINDINGS: LUNGS: Extensive cystic bronchiectatic and fibrotic changes are redemonstrated in the bilateral upper lobes with volume loss, mediastinal shift to the right and hyper expansion of the left lower lobe. Bronchiectatic changes are also stably noted in the bilateral lower lobes, left worse than right. Peripheral ground-glass opacity in both lower lobes, left worse than right are redemonstrated, without significant change. MEDIASTINUM: Unremarkable thoracic aorta. No aneurysm. Normal sized heart. Main pulmonary artery unremarkable. No vascular congestion. No lymphadenopathy. No aortic atherosclerotic calcification. PLEURA: No pleural fluid. No pneumothorax. BONES: No fracture. No destructive lesion. UPPER ABDOMEN: Prior cholecystectomy. Pneumobilia redemonstrated. OTHER FINDINGS: None. IMPRESSION: No significant change in extensive bilateral bronchiectatic changes. Stable appearance of ground-glass type opacities in both lower lobes which again may be infectious/inflammatory versus related to chronic changes. Additional stable findings as above. No significant interval change..
--- NOTE | 2018-01-25 16:13 | CP.PCM.PN ---
Subjective - Date & Time of Evaluation Date of Evaluation: 01/25/18 Time of Evaluation: 12:00 - Subjective Subjective: F/U COPD Exacerbation. No SOB on O2, occasional productive cough, no chest congestion. Objective - Vital Signs/Intake and Output Vital Signs (last 24 hours): Temp Pulse Resp BP Pulse Ox 98.3 F 91 H 17 115/67 96 01/25/18 15:48 01/25/18 15:48 01/25/18 15:48 01/25/18 15:48 01/25/18 15:48 - Medications Medications: Current Medications Acetylcysteine (Mucomyst 10% 4ml) 3 ml IH RTID [facility] Last Admin: 01/25/18 13:35 Dose: 3 ml Albuterol/Ipratropium (Duoneb 3 Mg/0.5 Mg (3 Ml) Ud) 3 ml INH RQ6 [facility] Last Admin: 01/25/18 13:35 Dose: 3 ml Cefepime HCl 1 gm/ Sodium (Chloride) 100 mls @ 100 mls/hr IVPB Q8 [facility]; Protocol Last Admin: 01/25/18 08:26 Dose: 100 mls/hr Moxifloxacin HCl (Avelox Iv 400mg/250ml Ns) 400 mg in 250 mls @ 250 mls/hr IVPB DAILY [facility]; Protocol Last Admin: 01/25/18 10:46 Dose: 250 mls/hr Methylprednisolone (Solu-Medrol) 40 mg IVP Q8 [facility] Last Admin: 01/25/18 08:26 Dose: 40 mg Montelukast Sodium (Singulair) 10 mg PO DAILY [facility] Last Admin: 01/25/18 10:47 Dose: 10 mg Promethazine HCl (Phenergan) 12.5 mg PO Q6 [facility] Last Admin: 01/25/18 10:47 Dose: 12.5 mg - Labs Labs: 01/25/18 05:25 01/25/18 05:37 PT 14.0 Seconds (9.8-13.1) H 01/20/18 18:15 INR 1.2 01/20/18 18:15 APTT 34.5 Seconds (25.6-37.1) 01/20/18 18:15 - Constitutional Appears: No Acute Distress - Head Exam Head Exam: NORMAL INSPECTION - Eye Exam Eye Exam: PERRL - ENT Exam ENT Exam: Normal Exam - Neck Exam Neck Exam: Normal Inspection - Respiratory Exam Respiratory Exam: Decreased Breath Sounds (at bases), Wheezes (b/l) - Cardiovascular Exam Cardiovascular Exam: REGULAR RHYTHM - GI/Abdominal Exam GI & Abdominal Exam: Soft, Normal Bowel Sounds - Extremities Exam Extremities Exam: Normal Inspection - Back Exam Back Exam: NORMAL INSPECTION - Neurological Exam Neurological Exam: Alert, Awake, Oriented x3. absent: Motor Sensory Deficit - Psychiatric Exam Psychiatric exam: Normal Mood - Skin Skin Exam: Warm Assessment and Plan (1) COPD exacerbation Status: Chronic (2) Hx pulmonary embolism Status: Chronic (3) Hx of non-ST elevation myocardial infarction (NSTEMI) Status: Chronic (4) History of TB (tuberculosis) Status: Chronic - Assessment and Plan (Free Text) Plan: Pt improved, to be transferred to TCU for continue abx Tx.
[2018-01-26] MEDS: Cefepime 1 GM in Sodium Chloride 0.9% 100 ML IVPB SCH ×2 (00:53→08:59)
[2018-01-26] MEDS: MethylPREDNISolone 40 mg Vial IVP SCH ×2 (00:54→08:58)
[2018-01-26] MEDS: Albuterol-Ipratrop 3 mg / 0.5 (3 ml) UD INH SCH ×2 (01:01→08:13)
[2018-01-26 08:01] VITALS: BP 117/66; PULSE 77; RESP 18; TEMP 98.4; O2SAT 99
[2018-01-26] MEDS: Acetylcysteine 10% 4 ML IH SCH (08:13)
[2018-01-26] MEDS: Moxifloxacin IV 400mg/250ml NS 400 MG/250 ML BAG IVPB SCH (09:00)
--- NOTE | 2018-01-27 13:34 | CP.PCM.DIS ---
Provider - Provider Date of Admission: 01/20/18 19:32 Attending physician: Ravi Torres MD Consults: [place] Time Spent in preparation of Discharge (in minutes): 25 Diagnosis - Discharge Diagnosis (1) COPD exacerbation Status: Chronic Priority: High (2) Hx pulmonary embolism Status: Chronic (3) Hx of non-ST elevation myocardial infarction (NSTEMI) Status: Chronic (4) History of TB (tuberculosis) Status: Chronic Hospital Course - Lab Results Lab Results: Micro Results 01/25/18 10:15 Sputum Gram Stain - Final 01/25/18 10:15 Sputum Sputum Culture - Preliminary Gram Negative Bruce 01/20/18 18:15 Blood Blood Culture - Final NO GROWTH AFTER 5 DAYS 01/20/18 18:15 Blood Gram Stain - Final TEST NOT PERFORMED 01/20/18 18:00 Blood Blood Culture - Final NO GROWTH AFTER 5 DAYS 01/20/18 18:00 Blood Gram Stain - Final TEST NOT PERFORMED Most Recent Lab Values WBC 12.4 K/uL (4.8-10.8) H 01/25/18 05:25 RBC 4.10 Mil/uL (4.40-5.90) L 01/25/18 05:25 Hgb 12.9 g/dL (12.0-18.0) 01/25/18 05:25 Hct 38.1 % (35.0-51.0) 01/25/18 05:25 MCV 93.0 fl (80.0-94.0) 01/25/18 05:25 MCH 31.5 pg (27.0-31.0) H 01/25/18 05:25 MCHC 33.9 g/dL (33.0-37.0) 01/25/18 05:25 RDW 14.3 % (11.5-14.5) 01/25/18 05:25 Plt Count 450 K/uL (130-400) H 01/25/18 05:25 MPV 7.4 fl (7.2-11.7) 01/20/18 18:15 Neut % (Auto) 85.2 % (50.0-75.0) H 01/20/18 18:15 Lymph % (Auto) 5.9 % (20.0-40.0) L 01/20/18 18:15 [place] % (Auto) 6.9 % (0.0-10.0) 01/20/18 18:15 Eos % (Auto) 1.4 % (0.0-4.0) 01/20/18 18:15 Baso % (Auto) 0.6 % (0.0-2.0) 01/20/18 18:15 Neut # (Auto) 9.5 K/uL (1.8-7.0) H 01/20/18 18:15 Lymph # (Auto) 0.7 K/uL (1.0-4.3) L 01/20/18 18:15 [place] # (Auto) 0.8 K/uL (0.0-0.8) 01/20/18 18:15 Eos # (Auto) 0.2 K/uL (0.0-0.7) 01/20/18 18:15 Baso # (Auto) 0.1 K/uL (0.0-0.2) 01/20/18 18:15 Neutrophils % (Manual) 88 % (42-75) H 01/20/18 18:15 Band Neutrophils % 4 % (0-2) H 01/20/18 18:15 Lymphocytes % (Manual) 4 % (20-50) L 01/20/18 18:15 Reactive Lymphs % 2 % (0-0) H 01/20/18 18:15 Monocytes % (Manual) 1 % (0-10) 01/20/18 18:15 Eosinophils % (Manual) 1 % (0-7) 01/20/18 18:15 Platelet Estimate Slightly increased (NORMAL) H 01/20/18 18:15 Ovalocytes Slight 01/20/18 18:15 Stomatocytes Slight 01/20/18 18:15 PT 14.0 Seconds (9.8-13.1) H 01/20/18 18:15 INR 1.2 01/20/18 18:15 APTT 34.5 Seconds (25.6-37.1) 01/20/18 18:15 pCO2 55 mm/Hg (35-45) H 01/22/18 10:54 pO2 41 mm/Hg (80-100) L* 01/22/18 10:54 HCO3 28.9 mmol/L (21-28) H 01/22/18 10:54 ABG pH 7.38 (7.35-7.45) 01/22/18 10:54 ABG Total CO2 34.2 mmol/L (22-28) H 01/22/18 10:54 ABG O2 Saturation 81.3 % (95-98) L 01/22/18 10:54 ABG O2 Content 15.0 ML/dL (15-23) 01/22/18 10:54 ABG Base Excess 5.8 mmol/L (-2.0-3.0) H 01/22/18 10:54 ABG Hemoglobin 13.7 g/dL (11.7-17.4) 01/22/18 10:54 ABG Carboxyhemoglobin 2.5 % (0.5-1.5) H 01/22/18 10:54 POC ABG HHb (Measured) 18.0 % (0.0-5.0) H 01/22/18 10:54 ABG Methemoglobin 1.4 % (0.0-3.0) 01/22/18 10:54 ABG O2 Capacity 18.5 mL/dL (16-24) 01/22/18 10:54 Danny Test Yes 01/22/18 10:54 ABG Potassium 4.4 mmol/L (3.6-5.2) 01/20/18 18:07 A-a O2 Difference 40.0 mm/Hg 01/22/18 10:54 Hgb O2 Saturation 78.1 % (95.0-98.0) L 01/22/18 10:54 Sodium 131.0 mmol/L (132-148) L 01/20/18 18:07 Chloride 99.0 mmol/L (98-107) 01/20/18 18:07 Glucose 144 mg/dL (75-110) H 01/20/18 18:07 Lactate 0.8 mmol/L (0.7-2.1) 01/20/18 18:07 FiO2 21.0 % 01/22/18 10:54 Crit Value Called To Sidney adan 01/22/18 10:54 Crit Value Called By 23 01/22/18 10:54 Crit Value Read Back Y 01/22/18 10:54 Blood Gas Notified Time 1105 01/22/18 10:54 Sodium 137 mmol/l (132-148) 01/25/18 05:37 Potassium 4.6 MMOL/L (3.6-5.0) 01/25/18 05:37 Chloride 96 mmol/L (98-107) L 01/25/18 05:37 Carbon Dioxide 32 mmol/L (22-30) H 01/25/18 05:37 Anion Gap 14 (10-20) 01/25/18 05:37 BUN 17 mg/dl (9-20) 01/25/18 05:37 Creatinine 0.4 mg/dl (0.8-1.5) L 01/25/18 05:37 Est GFR ( Amer) > 60 01/25/18 05:37 Est GFR (Non-Af Amer) > 60 01/25/18 05:37 POC Glucose (mg/dL) 169 mg/dL (65-110) H 01/25/18 04:57 Random Glucose 156 mg/dL (75-110) H 01/25/18 05:37 Calcium 8.6 mg/dL (8.4-10.2) 01/25/18 05:37 Phosphorus 3.4 mg/dl (2.5-4.5) 01/20/18 18:15 Magnesium 2.1 MG/DL (1.6-2.3) 01/20/18 18:15 Total Bilirubin 0.5 mg/dl (0.2-1.3) 01/20/18 18:15 AST 24 U/L (17-59) 01/20/18 18:15 ALT 21 U/L (21-72) D 01/20/18 18:15 Alkaline Phosphatase 76 U/L (38-126) 01/20/18 18:15 Troponin I 0.0190 ng/mL (0.00-0.120) 01/20/18 18:15 NT-Pro-B Natriuret Pep 1020 pg/ml (0-900) H 01/20/18 18:15 Total Protein 7.3 G/DL (6.3-8.2) 01/20/18 18:15 Albumin 3.5 g/dL (3.5-5.0) 01/20/18 18:15 Globulin 3.8 gm/dL (2.2-3.9) 01/20/18 18:15 Albumin/Globulin Ratio 0.9 (1.0-2.1) L 01/20/18 18:15 Arterial Blood Potassium 4.4 mmol/L (3.6-5.2) 01/20/18 18:07 HIV 1&2 Antibody Screen Negative (NEGATIVE) 01/24/18 14:22 Ur L.pneumophila Ag Negative (NEGATIVE) 01/22/18 08:15 Mycoplasma pneumon IgG 2.30 (<=0.90) H 01/23/18 12:32 Mycoplasma pneumon IgM 58 U/mL (<770) 01/23/18 12:32 - Date & Time of H&P Date of H&P: 01/21/18 Discharge Exam - Head Exam Head Exam: NORMAL INSPECTION - Eye Exam Eye Exam: PERRL - ENT Exam ENT Exam: Normal Exam - Neck Exam Neck exam: Normal Inspection - Respiratory Exam Respiratory Exam: Decreased Breath Sounds (at bases), Wheezes (b/l) - Cardiovascular Exam Cardiovascular Exam: REGULAR RHYTHM - GI/Abdominal Exam GI & Abdominal Exam: Normal Bowel Sounds, Soft - Back Exam Back exam: NORMAL INSPECTION - Neurological Exam Neurological exam: Alert, Oriented x3 Additional comments: awake, no motor sensory deficit - Psychiatric Exam Psychiatric exam: Normal Mood - Skin Skin Exam: Warm Discharge Plan - Discharge Medications Prescriptions: Moxifloxacin IV 400mg/250ml NS [Avelox IV 400mg/250ml NS] 400 mg IVPB DAILY #5 bag Cefepime [Maxipime] 1 gm IV Q8 #15 vial - Follow Up Plan Condition: FAIR Disposition: Trans to Other Acute Care Hosp
--- NOTE | 2018-01-30 12:53 | PQF ---
PROVIDER RESPONSE TEXT: Provider was unable to determine a response for this query. REVIEWER QUERY TEXT: Pneumonia Specificity Pneumonia is documented in the Medical Record. Please specify the type of pneumonia and the causative organism (includes probable or suspected) if known Such as: Type: -- Aspiration pneumonia (please also specify the aspirate) - [place] (please specify cause) - Please indicate if the aspiration is postprocedure -- Bacterial (please document suspected or probable organism) -- Bronchopneumonia (please document suspected or probable organism) -- Interstitial pneumonia -- Organizing pneumonia / BOOP -- Pneumonia with influenza, milena flu, or H1N1 flu -- RSV -- Tuberculosis, pulmonary -- Viral -- Other, please specify 01/23 Attending progress note: Plan: CT Chest showed: B/L Lower Lobe PNA, chronic changes, F/U Sputum C-S, Cefepime, ID consult. The patient's Clinical Indicators include: - Query created by: Xin Doan on 01/25/2018 12:43 PM Electronically signed by: Ravi Torres MD 01/30/2018 12:50 PM
== END 2018-01-26 12:15 | DRG 190 ==
LOC: H.ER 17:20 → H.ERHOLD 19:32 → H.TEL 01-21 03:09
PROVIDERS: ADMIT Internal Medicine Pulmonary Disease; ATTEND Internal Medicine Pulmonary Disease
DX: J44.1 Chronic obstructive pulmonary disease with (acute) exacerbation (principal); J18.9 Pneumonia, unspecified organism; J47.9 Bronchiectasis, uncomplicated; I25.2 Old myocardial infarction; I27.20 Pulmonary hypertension, unspecified; I50.9 Heart failure, unspecified; Z79.51 Long term (current) use of inhaled steroids; Z86.11 Personal history of tuberculosis; Z86.711 Personal history of pulmonary embolism; Z87.01 Personal history of pneumonia (recurrent); Z87.891 Personal history of nicotine dependence; R00.0 Tachycardia, unspecified; R06.03 Acute respiratory distress; I11.0 Hypertensive heart disease with heart failure

== ENCOUNTER 2018-01-25 15:12 | Inpatient (IN) | payer BC, MEDICARE ==
[2018-01-26 12:14] VITALS: BMI 26.0
[2018-01-26] MEDS: Cefepime 1 GM in Sodium Chloride 0.9% 100 ML IVPB SCH ×2 (12:57→16:24)
[2018-01-26] MEDS: Acetylcysteine 10% 4 ML IH SCH ×2 (16:14→20:04)
[2018-01-26] MEDS: Albuterol-Ipratrop 3 mg / 0.5 (3 ml) UD INH SCH ×2 (16:14→20:04)
--- NOTE | 2018-01-26 16:51 | CP.PCM.HP ---
History of Present Illness - History of Present Illness History of Present Illness: 72 y/o M, admitted to [facility] on 01/20/18 Telemetry floor for Tx of COPD Exacerbation, on 01/26/18, Pt condition improved and was admitted to TCU Unit to continue abx IV Tx. No SOB on O2, occasional dry cough. Pt denied: CP, palpitations, dizziness, fever, chills, n/v/d, abdominal pain, urinary symptoms. Present on Admission - Present on Admission Any Indicators Present on Admission: No Review of Systems - Constitutional Constitutional: Other (negative) - EENT Eyes: Requires Corrective Lenses Ears: Other (negative) Nose/Mouth/Throat: Other (negative) - Cardiovascular Cardiovascular: Other (negative) - Respiratory Respiratory: Cough (occasional), Dyspnea, Dyspnea on Exertion - Gastrointestinal Gastrointestinal: Other (negative) - Genitourinary Genitourinary: Other (negative) - Musculoskeletal Musculoskeletal: Other (negative) - Integumentary Integumentary: Other (negative) - Neurological Neurological: Other (negative) - Psychiatric Psychiatric: Other (negative) - Endocrine Endocrine: Other (negative) - Hematologic/Lymphatic Hematologic: Other (negative) Past Patient History - Infectious Disease Hx of Infectious Diseases: None - Past Medical History & Family History Past Medical History?: Yes Pertinent Family History: Unknown - Past Social History Smoking Status: Former Smoker Alcohol: None Drugs: Denies Home Situation {Lives}: Alone - CARDIAC Hx Cardiac Disorders: Yes (Hx NSTEMI) Hx Heart Attack: Yes (NSTEMI) - PULMONARY Hx Respiratory Disorders: Yes Hx Asthma: Yes Hx Chronic Obstructive Pulmonary Disease (COPD): Yes Hx Pneumonia: Yes Hx Tuberculosis: Yes - NEUROLOGICAL HX Cerebrovascular Accident: Yes - HEENT Hx HEENT Problems: No - RENAL Hx Chronic Kidney Disease: No - ENDOCRINE/METABOLIC Hx Endocrine Disorders: No - HEMATOLOGICAL/ONCOLOGICAL Hx Blood Disorders: No Hx AIDS: No Hx Human Immunodeficiency Virus (HIV): No - INTEGUMENTARY Hx Dermatological Problems: No - MUSCULOSKELETAL/RHEUMATOLOGICAL Hx Musculoskeletal Disorders: No Hx Falls: No - GASTROINTESTINAL Hx Gastrointestinal Disorders: No - GENITOURINARY/GYNECOLOGICAL Hx Genitourinary Disorders: No Hx Urinary Tract Infection: No - PSYCHIATRIC Hx Psychophysiologic Disorder: No Hx Substance Use: No - SURGICAL HISTORY Hx Surgeries: No - ANESTHESIA Hx Anesthesia: No Hx Anesthesia Reactions: No Meds Allergies/Adverse Reactions: Allergies Allergy/AdvReac Type Severity Reaction Status Date / Time No Known Allergies Allergy Verified 01/26/18 12:13 Physical Exam - Constitutional Appears: No Acute Distress - Head Exam Head Exam: NORMAL INSPECTION - Eye Exam Eye Exam: PERRL - ENT Exam ENT Exam: Normal Exam - Neck Exam Neck exam: Positive for: Normal Inspection - Respiratory Exam Respiratory Exam: Decreased Breath Sounds (at bases) - Cardiovascular Exam Cardiovascular Exam: REGULAR RHYTHM - GI/Abdominal Exam GI & Abdominal Exam: Normal Bowel Sounds, Soft - Extremities Exam Extremities exam: Positive for: normal inspection - Back Exam Back exam: NORMAL INSPECTION - Neurological Exam Neurological exam: Alert, Oriented x3 Additional comments: No motor/sensory deficit. - Psychiatric Exam Psychiatric exam: Normal Mood - Skin Skin Exam: Warm Results - Vital Signs Recent Vital Signs: Last Vital Signs Temp 97.9 F 01/26/18 16:36 Pulse 96 H 01/26/18 16:36 Resp 20 01/26/18 16:36 BP 113/70 01/26/18 16:36 Pulse Ox 94 L 01/26/18 16:36 reviewed J.P. - Labs Labs: reviewed J.P. Assessment & Plan (1) COPD exacerbation Status: Chronic Priority: High (2) History of TB (tuberculosis) Status: Chronic (3) Hx of non-ST elevation myocardial infarction (NSTEMI) Status: Chronic (4) Hx pulmonary embolism Status: Chronic - Assessment and Plan (Free Text) Plan: Continue cefepime IV, Duoneb, Solu-Medrol and rest of Tx, PT,OT eval. - Date & Time Date: 01/26/18
[2018-01-26] MEDS ORDERED: Cefepime (Maxipime) 1 g Inj IVPB SCH (21:00)
[2018-01-26] MEDS: MethylPREDNISolone 40 mg Vial IVP SCH (21:21)
[2018-01-27] MEDS: Cefepime 1 GM in Sodium Chloride 0.9% 100 ML IVPB SCH ×3 (00:36→16:13)
[2018-01-27] MEDS: Albuterol-Ipratrop 3 mg / 0.5 (3 ml) UD INH SCH ×4 (01:06→19:29)
[2018-01-27] MEDS: Acetylcysteine 10% 4 ML IH SCH ×3 (08:00→19:29)
[2018-01-27] MEDS: Moxifloxacin IV 400mg/250ml NS 400 MG/250 ML BAG IVPB SCH ×2 (08:11→20:53)
[2018-01-27] MEDS: MethylPREDNISolone 40 mg Vial IVP SCH ×2 (08:13→20:58)
[2018-01-27] MEDS ORDERED: Patient's Own Med (Moxifloxacin Iv 400mg/250ml Ns [Avelox Iv 400mg/250ml Ns] 400 MG) IVPB SCH (09:00)
--- NOTE | 2018-01-27 16:31 | CP.PCM.PN ---
Subjective - Date & Time of Evaluation Date of Evaluation: 01/27/18 - Subjective Subjective: F/U COPD Exacerbation. Mild SOB on exertion, occasional cough. Objective - Vital Signs/Intake and Output Vital Signs (last 24 hours): Temp Pulse Resp BP Pulse Ox 97.9 F 84 20 128/65 96 01/27/18 10:03 01/27/18 10:03 01/27/18 10:03 01/27/18 10:03 01/27/18 10:03 - Medications Medications: Current Medications Acetylcysteine (Mucomyst 10% 4ml) 3 ml IH RTID [facility] Last Admin: 01/27/18 13:53 Dose: 3 ml Albuterol/Ipratropium (Duoneb 3 Mg/0.5 Mg (3 Ml) Ud) 3 ml INH RQ6 [facility] Last Admin: 01/27/18 13:53 Dose: 3 ml Cefepime HCl 1 gm/ Sodium (Chloride) 100 mls @ 100 mls/hr IVPB Q8 [facility] Last Admin: 01/27/18 16:13 Dose: 100 mls/hr Moxifloxacin HCl (Avelox Iv 400mg/250ml Ns) 400 mg in 250 mls @ 250 mls/hr IVPB DAILY@2100 [facility] Last Admin: 01/27/18 08:11 Dose: Not Given Methylprednisolone (Solu-Medrol) 40 mg IVP Q12 [facility] Last Admin: 01/27/18 08:13 Dose: 40 mg Montelukast Sodium (Singulair) 10 mg PO DAILY [facility] Last Admin: 01/27/18 08:13 Dose: 10 mg Promethazine HCl/Codeine (Phenergan/Codeine Oral Syrup) 10 ml PO Q4 PRN PRN Reason: Cough - Constitutional Appears: No Acute Distress - Head Exam Head Exam: NORMAL INSPECTION - Eye Exam Eye Exam: PERRL - ENT Exam ENT Exam: Normal Exam - Neck Exam Neck Exam: Normal Inspection - Respiratory Exam Respiratory Exam: Decreased Breath Sounds (at bases) - Cardiovascular Exam Cardiovascular Exam: REGULAR RHYTHM - GI/Abdominal Exam GI & Abdominal Exam: Soft, Normal Bowel Sounds - Extremities Exam Extremities Exam: Normal Inspection - Back Exam Back Exam: NORMAL INSPECTION - Neurological Exam Neurological Exam: Alert, Awake, Oriented x3. absent: Motor Sensory Deficit - Psychiatric Exam Psychiatric exam: Normal Mood - Skin Skin Exam: Warm Assessment and Plan (1) COPD exacerbation Status: Chronic (2) History of TB (tuberculosis) Status: Chronic (3) Hx of non-ST elevation myocardial infarction (NSTEMI) Status: Chronic (4) Hx pulmonary embolism Status: Chronic - Assessment and Plan (Free Text) Plan: Continue Avelox IV, Singulair and rest of Tx. ID Consult.
[2018-01-28] MEDS: Promethazine/Cod 6.25mg-10mg/5ml Syr UD PO PRN ×3 (00:57→14:31)
[2018-01-28] MEDS: Cefepime 1 GM in Sodium Chloride 0.9% 100 ML IVPB SCH ×2 (01:00→09:40)
[2018-01-28] MEDS: Albuterol-Ipratrop 3 mg / 0.5 (3 ml) UD INH SCH ×4 (01:22→19:17)
[2018-01-28] MEDS: Acetylcysteine 10% 4 ML IH SCH ×2 (07:37→19:16)
[2018-01-28] MEDS: MethylPREDNISolone 40 mg Vial IVP SCH ×2 (09:40→20:38)
--- NOTE | 2018-01-28 11:32 | CP.PCM.CON ---
History of Present Illness - History of Present Illness History of Present Illness: 72 y/o M, Hx of COPD, PE, NSTEMI, is admitted to [facility] with worsening SOB and dry cough despite bronchodilators at home CT shows moderate bronchiectasis / infiltrates Transferred to TCU for continuation of antibiotic rx PMH TB at 17 y/o (remained in the hospital x 2 years in [place] ) Pt came to [facility] in the 70's, worked x 20 yrs with exposures to dust Pt denied: CP, syncope, numbness, dizziness, hemoptysis, n/v/d, abdominal pain, urinary symptoms, recent travel out of [facility]. Review of Systems - Review of Systems All systems: reviewed and no additional remarkable complaints except - Constitutional Constitutional: As Per HPI, Chills, Fever, Malaise - EENT Eyes: As Per HPI. absent: Blind Spots, Blurred Vision, Change in Vision, Decreased Night Vision, Diplopia, Discharge, Dry Eye, Exophthalmos, Floaters, Irritation, Itchy Eyes, Loss of Peripheral Vision, Pain, Photophobia, Requires Corrective Lenses, Sees Flashes, Spots in Vision, Tunnel Vision, Other Visual Disturbances, Loss of Vision, Other Ears: absent: As Per HPI, Decreased Hearing, Ear Discharge, Ear Pain, Tinnitus, Abnormal Hearing, Disequilibrium, Dizziness, Other Nose/Mouth/Throat: absent: As Per HPI, Epistaxis, Nasal Congestion, Nasal Discharge, Nasal Obstruction, Nasal Trauma, Nose Pain, Post Nasal Drip, Sinus Pain, Sinus Pressure, Bleeding Gums, Change in Voice, Dental Pain, Dry Mouth, Dysphagia, Halitosis, Hoarsness, Lip Swelling, Mouth Lesions, Mouth Pain, Odynophagia, Sore Throat, Throat Swelling, Tongue Swelling, Facial Pain, Neck Pain, Neck Mass, Other - Cardiovascular Cardiovascular: As Per HPI - Respiratory Respiratory: Cough, Dyspnea, Dyspnea on Exertion - Gastrointestinal Gastrointestinal: absent: As Per HPI, Abdominal Pain, Belching, Bloating, Change in Bowel Habits, Change in Stool Character, Coffee Ground Emesis, Constipation, Cramping, Diarrhea, Dyspepsia, Dysphagia, Early Satiety, Excessive Flatus, Fecal Incontinence, Heartburn, Hematemesis, Hematochezia, Loose Stools, Melena, Nausea, Odynophagia, Temesmus, Vomiting, Other - Genitourinary Genitourinary: absent: As Per HPI, Change in Urinary Stream, Difficulty Urinating, Dysuria, Flank Pain, Hematuria, Pyuria, Nocturia, Urinary Incontinence, Urinary Frequency, Urinary Hesitance, Urinary Urgency, Voiding Robert q/Small Amts, Freq UTI, Hx Renal/Bladder Calculi, Hx /Renal Surgery, Bladder Distension, Other - Musculoskeletal Musculoskeletal: absent: As Per HPI, Abnormal Gait, Arthralgias, Atrophy, Back Pain, Deformity, Joint Swelling, Limited Range of Motion, Loss of Height, Muscle Cramps, Muscle Weakness, Myalgias, Neck Pain, Numbness, Radiating Pain into Limb, Stiffness, Tingling, Other - Integumentary Integumentary: absent: As Per HPI, Acne, Alopecia, Bleeding Lesions, Change in Hair, Change in Nails, Change in Pigmentation, Changing Lesions, Dry Skin, Erythema, Furuncle, Hirsutism, Lesions, New Lesions, Non-Healing Lesions, Photosensitivity, Pruritus, Rash, Skin Pain, Skin Ulcer, Sores, Striae, Swelling, Unusual Bruising, Wounds, Jaundice, Other - Neurological Neurological: absent: As Per HPI, Abnormal Gait, Abnormal Hearing, Abnormal Movements, Abnormal Speech, Behavioral Changes, Burning Sensations, Confusion, Convulsions, Disequilibrium, Dizziness, Numbness, Focal Weakness, Frequent Falls, Headaches, Lack of Coordination, Loss of Vision, Memory Loss, Paresthesias, Radicular Pain, Restless Legs, Sensory Deficit, Syncope, Tingling, Tremor, Vertigo, Weakness, Other Visual Disturbances, Other - Psychiatric Psychiatric: absent: As Per HPI, Abnormal Sleep Pattern, Anhedonia, Anxiety, Auditory Hallucinations, Behavioral Changes, Change in Appetite, Change in Libido, Confusion, Depression, Difficulty Concentrating, Hallucinations, Homicidal Ideation, Hopelessness, Irritability, Memory Loss, Mood Swings, Panic Attacks, Paranoia, Suicidal Ideation, Visual Hallucinations, Tactile Hallucinations, Other - Endocrine Endocrine: absent: As Per HPI, Change in Body Appearance, Change in Libido, Cold Intolorance, Deepening of Voice, Excessive Sweating, Fatigue, Flushing, Heat Intolorance, Increase in Ring/Shoe/Hat Size, Palpitations, Polydipsia, Polyphagia, Polyuria, Other - Hematologic/Lymphatic Hematologic: absent: As Per HPI, Easy Bleeding, Easy Bruising, Lymphadenopathy, Other Past Patient History - Infectious Disease Hx of Infectious Diseases: None - Past Medical History & Family History Past Medical History?: Yes - Past Social History Smoking Status: Former Smoker Alcohol: None Drugs: Denies Home Situation {Lives}: Alone - CARDIAC Hx Cardiac Disorders: Yes (Hx NSTEMI) Hx Heart Attack: Yes (NSTEMI) - PULMONARY Hx Respiratory Disorders: Yes Hx Asthma: Yes Hx Chronic Obstructive Pulmonary Disease (COPD): Yes Hx Pneumonia: Yes Hx Tuberculosis: Yes - NEUROLOGICAL HX Cerebrovascular Accident: Yes - HEENT Hx HEENT Problems: No - RENAL Hx Chronic Kidney Disease: No - ENDOCRINE/METABOLIC Hx Endocrine Disorders: No - HEMATOLOGICAL/ONCOLOGICAL Hx Blood Disorders: No Hx AIDS: No Hx Human Immunodeficiency Virus (HIV): No - INTEGUMENTARY Hx Dermatological Problems: No - MUSCULOSKELETAL/RHEUMATOLOGICAL Hx Musculoskeletal Disorders: No Hx Falls: No - GASTROINTESTINAL Hx Gastrointestinal Disorders: No - GENITOURINARY/GYNECOLOGICAL Hx Genitourinary Disorders: No Hx Urinary Tract Infection: No - PSYCHIATRIC Hx Psychophysiologic Disorder: No Hx Substance Use: No - SURGICAL HISTORY Hx Surgeries: No - ANESTHESIA Hx Anesthesia: No Hx Anesthesia Reactions: No Meds Allergies/Adverse Reactions: Allergies Allergy/AdvReac Type Severity Reaction Status Date / Time No Known Allergies Allergy Verified 01/26/18 12:13 - Medications Medications: Current Medications Acetylcysteine (Mucomyst 10% 4ml) 3 ml IH RTID [facility] Last Admin: 01/28/18 07:37 Dose: 3 ml Albuterol/Ipratropium (Duoneb 3 Mg/0.5 Mg (3 Ml) Ud) 3 ml INH RQ6 [facility] Last Admin: 01/28/18 07:37 Dose: 3 ml Cefepime HCl 1 gm/ Sodium (Chloride) 100 mls @ 100 mls/hr IVPB Q8 [facility] Last Admin: 01/28/18 09:40 Dose: 100 mls/hr Moxifloxacin HCl (Avelox Iv 400mg/250ml Ns) 400 mg in 250 mls @ 250 mls/hr IVPB DAILY@2100 [facility] Last Admin: 01/27/18 20:53 Dose: 250 mls/hr Methylprednisolone (Solu-Medrol) 40 mg IVP Q12 [facility] Last Admin: 01/28/18 09:40 Dose: 40 mg Montelukast Sodium (Singulair) 10 mg PO DAILY [facility] Last Admin: 01/28/18 09:40 Dose: 10 mg Promethazine HCl/Codeine (Phenergan/Codeine Oral Syrup) 10 ml PO Q4 PRN PRN Reason: Cough Last Admin: 01/28/18 09:43 Dose: 10 ml Physical Exam - Constitutional Appears: Chronically Ill - Head Exam Head Exam: ATRAUMATIC - Eye Exam Eye Exam: absent: Scleral icterus - ENT Exam ENT Exam: Mucous Membranes Dry - Neck Exam Neck exam: Negative for: Lymphadenopathy - Respiratory Exam Respiratory Exam: Decreased Breath Sounds - Cardiovascular Exam Cardiovascular Exam: REGULAR RHYTHM - GI/Abdominal Exam GI & Abdominal Exam: Diminished Bowel Sounds, Soft - Rectal Exam Rectal Exam: Deferred - Exam Exam: NORMAL INSPECTION - Extremities Exam Extremities exam: Negative for: pedal edema - Back Exam Back exam: absent: CVA tenderness (L), CVA tenderness (R) - Neurological Exam Neurological exam: Alert, CN II-XII Intact, Oriented x3, Reflexes Normal - Psychiatric Exam Psychiatric exam: Normal Mood - Skin Skin Exam: Dry, Intact Results - Vital Signs Recent Vital Signs: Last Vital Signs Temp 98.1 F 01/28/18 09:09 Pulse 88 01/28/18 09:09 Resp 20 01/28/18 09:09 BP 120/65 01/28/18 09:09 Pulse Ox 90 L 01/28/18 09:09 Assessment & Plan (1) Bronchiectasis Status: Acute (2) PNA (pneumonia) Status: Acute Priority: High (3) Pulmonary HTN Status: Acute Priority: High - Assessment and Plan (Free Text) Assessment: improving on IV antibiotics cont rx as ordered
[2018-01-28] MEDS ORDERED: Meropenem 1 GM in Sodium Chloride 0.9% 100 ML IVPB SCH (11:45)
[2018-01-28] MEDS: Meropenem 1 GM in Sodium Chloride 0.9% 100 ML IVPB SCH (20:36)
[2018-01-28] MEDS: Moxifloxacin IV 400mg/250ml NS 400 MG/250 ML BAG IVPB SCH (20:37)
[2018-01-29] MEDS: Albuterol-Ipratrop 3 mg / 0.5 (3 ml) UD INH SCH ×4 (02:12→19:24)
[2018-01-29] MEDS: Meropenem 1 GM in Sodium Chloride 0.9% 100 ML IVPB SCH ×3 (04:54→20:53)
[2018-01-29] MEDS: Promethazine/Cod 6.25mg-10mg/5ml Syr UD PO PRN ×2 (04:55→14:41)
[2018-01-29] MEDS: Acetylcysteine 10% 4 ML IH SCH ×3 (07:35→19:24)
[2018-01-29] MEDS: MethylPREDNISolone 40 mg Vial IVP SCH ×2 (08:08→20:54)
--- NOTE | 2018-01-29 15:06 | CP.PCM.PN ---
Subjective - Date & Time of Evaluation Date of Evaluation: 01/29/18 - Subjective Subjective: F/U COPD Exacerbation. Pt with occasional cough, scant amount of secretions Objective - Vital Signs/Intake and Output Vital Signs (last 24 hours): Temp Pulse Resp BP Pulse Ox 97.9 F 83 20 116/66 97 01/29/18 08:19 01/29/18 08:19 01/29/18 08:19 01/29/18 08:19 01/29/18 08:19 - Medications Medications: Current Medications Acetylcysteine (Mucomyst 10% 4ml) 3 ml IH RTID [facility] Last Admin: 01/29/18 14:54 Dose: Not Given Albuterol/Ipratropium (Duoneb 3 Mg/0.5 Mg (3 Ml) Ud) 3 ml INH RQ6 [facility] Last Admin: 01/29/18 14:53 Dose: Not Given Meropenem 1 gm/ Sodium (Chloride) 100 mls @ 100 mls/hr IVPB Q8@0500,1300,2100 [facility]; Protocol Last Admin: 01/29/18 13:08 Dose: 100 mls/hr Moxifloxacin HCl (Avelox Iv 400mg/250ml Ns) 400 mg in 250 mls @ 250 mls/hr IVPB DAILY@1700 [facility]; Protocol Methylprednisolone (Solu-Medrol) 30 mg IVP Q12 [facility] Last Admin: 01/29/18 08:08 Dose: 30 mg Montelukast Sodium (Singulair) 10 mg PO DAILY [facility] Last Admin: 01/29/18 08:08 Dose: 10 mg Promethazine HCl/Codeine (Phenergan/Codeine Oral Syrup) 10 ml PO Q4 PRN PRN Reason: Cough Last Admin: 01/29/18 14:41 Dose: 10 ml - Constitutional Appears: No Acute Distress - Head Exam Head Exam: NORMAL INSPECTION - Eye Exam Eye Exam: PERRL - ENT Exam ENT Exam: Normal Exam - Neck Exam Neck Exam: Normal Inspection - Respiratory Exam Respiratory Exam: Decreased Breath Sounds (at bases) - Cardiovascular Exam Cardiovascular Exam: REGULAR RHYTHM - GI/Abdominal Exam GI & Abdominal Exam: Soft, Normal Bowel Sounds - Extremities Exam Extremities Exam: Normal Inspection - Back Exam Back Exam: NORMAL INSPECTION - Neurological Exam Neurological Exam: Alert, Awake, Oriented x3. absent: Motor Sensory Deficit - Psychiatric Exam Psychiatric exam: Normal Mood - Skin Skin Exam: Warm Assessment and Plan (1) COPD exacerbation Status: Chronic (2) History of TB (tuberculosis) Status: Chronic (3) Hx of non-ST elevation myocardial infarction (NSTEMI) Status: Chronic (4) Hx pulmonary embolism Status: Chronic - Assessment and Plan (Free Text) Plan: Continue the course of Merren IV and Avelox for 7 days, continue rest of Tx. ID consult appreciated.
[2018-01-29] MEDS ORDERED: Moxifloxacin IV 400mg/250ml NS 400 MG/250 ML BAG IVPB SCH (17:00)
[2018-01-30] MEDS: Albuterol-Ipratrop 3 mg / 0.5 (3 ml) UD INH SCH ×4 (02:15→19:58)
[2018-01-30] MEDS: Meropenem 1 GM in Sodium Chloride 0.9% 100 ML IVPB SCH ×3 (05:09→20:53)
[2018-01-30] MEDS: Promethazine/Cod 6.25mg-10mg/5ml Syr UD PO PRN ×2 (05:11→22:04)
[2018-01-30] MEDS: Acetylcysteine 10% 4 ML IH SCH ×3 (07:33→19:58)
[2018-01-30] MEDS: MethylPREDNISolone 40 mg Vial IVP SCH ×2 (08:41→20:58)
--- NOTE | 2018-01-30 10:18 | CP.PCM.PN ---
Subjective - Date & Time of Evaluation Date of Evaluation: 01/30/18 Time of Evaluation: 07:00 - Subjective Subjective: less cough no fever iv rx in progress Objective - Vital Signs/Intake and Output Vital Signs (last 24 hours): Temp Pulse Resp BP Pulse Ox 97.5 F L 79 20 132/75 97 01/30/18 08:17 01/30/18 08:17 01/30/18 08:17 01/30/18 08:17 01/30/18 08:17 - Medications Medications: Current Medications Acetylcysteine (Mucomyst 10% 4ml) 3 ml IH RTID [facility] Last Admin: 01/30/18 07:33 Dose: 3 ml Albuterol/Ipratropium (Duoneb 3 Mg/0.5 Mg (3 Ml) Ud) 3 ml INH RQ6 [facility] Last Admin: 01/30/18 07:33 Dose: 3 ml Meropenem 1 gm/ Sodium (Chloride) 100 mls @ 100 mls/hr IVPB Q8@0500,1300,2100 [facility]; Protocol Last Admin: 01/30/18 05:09 Dose: 100 mls/hr Moxifloxacin HCl (Avelox Iv 400mg/250ml Ns) 400 mg in 250 mls @ 250 mls/hr IVPB DAILY@1700 [facility]; Protocol Last Admin: 01/29/18 16:04 Dose: 250 mls/hr Methylprednisolone (Solu-Medrol) 30 mg IVP Q12 [facility] Last Admin: 01/30/18 08:41 Dose: 30 mg Montelukast Sodium (Singulair) 10 mg PO DAILY [facility] Last Admin: 01/30/18 08:41 Dose: 10 mg Promethazine HCl/Codeine (Phenergan/Codeine Oral Syrup) 10 ml PO Q4 PRN PRN Reason: Cough Last Admin: 01/30/18 05:11 Dose: 10 ml - Constitutional Appears: Well - Head Exam Head Exam: ATRAUMATIC, NORMAL INSPECTION, NORMOCEPHALIC - Eye Exam Eye Exam: EOMI, Normal appearance, PERRL Pupil Exam: NORMAL ACCOMODATION, PERRL - ENT Exam ENT Exam: Mucous Membranes Moist, Normal Exam - Neck Exam Neck Exam: Full ROM, Normal Inspection. absent: Lymphadenopathy - Respiratory Exam Respiratory Exam: Clear to Ausculation Bilateral, NORMAL BREATHING PATTERN - Cardiovascular Exam Cardiovascular Exam: REGULAR RHYTHM, +S1, +S2. absent: Murmur - GI/Abdominal Exam GI & Abdominal Exam: Soft, Normal Bowel Sounds. absent: Tenderness - Rectal Exam Rectal Exam: NORMAL INSPECTION - Extremities Exam Extremities Exam: Full ROM, Normal Capillary Refill, Normal Inspection. absent: Joint Swelling, Pedal Edema - Back Exam Back Exam: NORMAL INSPECTION - Neurological Exam Neurological Exam: Alert, Awake, CN II-XII Intact, Normal Gait, Oriented x3 - Psychiatric Exam Psychiatric exam: Normal Affect, Normal Mood - Skin Skin Exam: Dry, Intact, Normal Color, Warm Assessment and Plan (1) Bronchiectasis Status: Acute (2) PNA (pneumonia) Status: Acute (3) Pulmonary HTN Status: Acute - Assessment and Plan (Free Text) Assessment: cont rx as planned
--- NOTE | 2018-01-30 15:10 | CP.PCM.PN ---
Subjective - Date & Time of Evaluation Date of Evaluation: 01/30/18 Time of Evaluation: 11:40 - Subjective Subjective: F/U COPD Exacerbation. Pt with no SOB, ambuating well with no RUIZ, occasional dry cough. Objective - Vital Signs/Intake and Output Vital Signs (last 24 hours): Temp Pulse Resp BP Pulse Ox 97.5 F L 79 20 132/75 87 L 01/30/18 08:17 01/30/18 08:17 01/30/18 08:17 01/30/18 08:17 01/30/18 11:17 - Medications Medications: Current Medications Acetylcysteine (Mucomyst 10% 4ml) 3 ml IH RTID [facility] Last Admin: 01/30/18 13:02 Dose: 3 ml Albuterol/Ipratropium (Duoneb 3 Mg/0.5 Mg (3 Ml) Ud) 3 ml INH RQ6 [facility] Last Admin: 01/30/18 13:01 Dose: 3 ml Meropenem 1 gm/ Sodium (Chloride) 100 mls @ 100 mls/hr IVPB Q8@0500,1300,2100 [facility]; Protocol Last Admin: 01/30/18 12:28 Dose: 100 mls/hr Moxifloxacin HCl (Avelox Iv 400mg/250ml Ns) 400 mg in 250 mls @ 250 mls/hr IVPB DAILY@1700 [facility]; Protocol Last Admin: 01/29/18 16:04 Dose: 250 mls/hr Methylprednisolone (Solu-Medrol) 30 mg IVP Q12 [facility] Last Admin: 01/30/18 08:41 Dose: 30 mg Montelukast Sodium (Singulair) 10 mg PO DAILY [facility] Last Admin: 01/30/18 08:41 Dose: 10 mg Promethazine HCl/Codeine (Phenergan/Codeine Oral Syrup) 10 ml PO Q4 PRN PRN Reason: Cough Last Admin: 01/30/18 05:11 Dose: 10 ml - Constitutional Appears: No Acute Distress - Head Exam Head Exam: NORMAL INSPECTION - Eye Exam Eye Exam: PERRL - ENT Exam ENT Exam: Normal Exam - Neck Exam Neck Exam: Normal Inspection - Respiratory Exam Respiratory Exam: Decreased Breath Sounds (at bases), Rhonchi (scattered) - Cardiovascular Exam Cardiovascular Exam: REGULAR RHYTHM - GI/Abdominal Exam GI & Abdominal Exam: Soft, Normal Bowel Sounds - Extremities Exam Extremities Exam: Normal Inspection - Back Exam Back Exam: NORMAL INSPECTION - Neurological Exam Neurological Exam: Alert, Awake, Oriented x3. absent: Motor Sensory Deficit - Psychiatric Exam Psychiatric exam: Normal Affect - Skin Skin Exam: Warm Assessment and Plan (1) COPD exacerbation Status: Chronic (2) History of TB (tuberculosis) Status: Chronic (3) Hx of non-ST elevation myocardial infarction (NSTEMI) Status: Chronic (4) Hx pulmonary embolism Status: Chronic - Assessment and Plan (Free Text) Plan: Pt asked for oop for vote today, there after will return to hospital.
[2018-01-30] MEDS: Moxifloxacin IV 400mg/250ml NS 400 MG/250 ML BAG IVPB SCH (20:55)
[2018-01-31] MEDS: Albuterol-Ipratrop 3 mg / 0.5 (3 ml) UD INH SCH ×4 (01:01→19:24)
[2018-01-31] MEDS: Meropenem 1 GM in Sodium Chloride 0.9% 100 ML IVPB SCH ×3 (04:50→20:34)
[2018-01-31 06:18] LABS: BASO % 0.1 % (0.0-2.0); HEMOGLOBIN 14.1 g/dL (12.0-18.0); LYMPH # 0.5 K/uL (1.0-4.3); LYMPH % 4.7 % (20.0-40.0); MEAN CELL VOLUME 93.1 fl (80.0-94.0); MEAN CORPUSCULAR HEMOGLOBIN 31.3 pg (27.0-31.0); MEAN CORPUSCULAR HGB CONC 33.7 g/dL (33.0-37.0); MEAN PLATELET VOLUME 7.2 fl (7.2-11.7); MONO # 0.5 K/uL (0.0-0.8); MONO % 5.2 % (0.0-10.0); PLATELET COUNT 399 K/uL (130-400); RBC 4.51 Mil/uL (4.40-5.90); RED CELL DISTRIBUTION WIDTH 14.6 % (11.5-14.5)
[2018-01-31 06:33] LABS: ALBUMIN 3.5 g/dL (3.5-5.0); ALT/SGPT 62 U/L (21-72); AST/SGOT 33 U/L (17-59); BLOOD UREA NITROGEN 20 mg/dl (9-20); CALCIUM 8.8 mg/dL (8.4-10.2); GFR NON-AFRICAN AMERICAN > 60
[2018-01-31] MEDS: Acetylcysteine 10% 4 ML IH SCH ×3 (07:30→19:24)
[2018-01-31] MEDS: MethylPREDNISolone 40 mg Vial IVP SCH ×2 (08:05→20:35)
[2018-01-31 08:36] LABS: BANDS 1 % (0-2); LYMPHOCYTE 4 % (20-50); MONOCYTE 3 % (0-10); NEUTROPHIL 92 % (42-75); PLATELET ESTIMATE NORMAL (NORMAL); TOTAL CELLS COUNTED 100
--- NOTE | 2018-01-31 18:01 | CP.PCM.PN ---
Subjective - Date & Time of Evaluation Date of Evaluation: 01/31/18 Time of Evaluation: 13:25 - Subjective Subjective: F/U COPD Exacerbation. Pt awake, mild SOB on exertion, on O2 NC, occasional dry cough. Objective - Vital Signs/Intake and Output Vital Signs (last 24 hours): Temp Pulse Resp BP Pulse Ox 97.9 F 92 H 20 128/75 96 01/31/18 16:48 01/31/18 16:48 01/31/18 16:48 01/31/18 16:48 01/31/18 16:48 - Medications Medications: Current Medications Acetylcysteine (Mucomyst 10% 4ml) 3 ml IH RTID [facility] Last Admin: 01/31/18 13:14 Dose: 3 ml Albuterol/Ipratropium (Duoneb 3 Mg/0.5 Mg (3 Ml) Ud) 3 ml INH RQ6 [facility] Last Admin: 01/31/18 13:14 Dose: 3 ml Meropenem 1 gm/ Sodium (Chloride) 100 mls @ 100 mls/hr IVPB Q8@0500,1300,2100 [facility]; Protocol Last Admin: 01/31/18 12:18 Dose: 100 mls/hr Moxifloxacin HCl (Avelox Iv 400mg/250ml Ns) 400 mg in 250 mls @ 250 mls/hr IVPB DAILY@2000 [facility]; Protocol Last Admin: 01/30/18 20:55 Dose: 250 mls/hr Methylprednisolone (Solu-Medrol) 30 mg IVP Q12 [facility] Last Admin: 01/31/18 08:05 Dose: 30 mg Montelukast Sodium (Singulair) 10 mg PO DAILY@1800 [facility] Last Admin: 01/31/18 17:08 Dose: 10 mg Promethazine HCl/Codeine (Phenergan/Codeine Oral Syrup) 10 ml PO Q4 PRN PRN Reason: Cough Last Admin: 01/30/18 22:04 Dose: 10 ml - Labs Labs: 01/31/18 05:57 01/31/18 05:57 - Constitutional Appears: No Acute Distress - Head Exam Head Exam: NORMAL INSPECTION - Eye Exam Eye Exam: PERRL - ENT Exam ENT Exam: Normal Exam - Neck Exam Neck Exam: Normal Inspection - Respiratory Exam Respiratory Exam: Decreased Breath Sounds (at bases) - Cardiovascular Exam Cardiovascular Exam: REGULAR RHYTHM - GI/Abdominal Exam GI & Abdominal Exam: Soft, Normal Bowel Sounds - Extremities Exam Extremities Exam: Normal Inspection - Back Exam Back Exam: NORMAL INSPECTION - Neurological Exam Neurological Exam: Alert, Awake, Oriented x3. absent: Motor Sensory Deficit - Psychiatric Exam Psychiatric exam: Normal Mood - Skin Skin Exam: Warm Assessment and Plan (1) COPD exacerbation Status: Chronic (2) History of TB (tuberculosis) Status: Chronic (3) Hx of non-ST elevation myocardial infarction (NSTEMI) Status: Chronic (4) Hx pulmonary embolism Status: Chronic - Assessment and Plan (Free Text) Plan: Continue Merren, Duoneb, Solu-Medrol, Promethazine and rest of Tx.
[2018-01-31] MEDS: Promethazine/Cod 6.25mg-10mg/5ml Syr UD PO PRN (18:58)
[2018-01-31] MEDS: Moxifloxacin IV 400mg/250ml NS 400 MG/250 ML BAG IVPB SCH (20:38)
[2018-02-01] MEDS: Albuterol-Ipratrop 3 mg / 0.5 (3 ml) UD INH SCH ×4 (01:31→19:49)
[2018-02-01] MEDS: Meropenem 1 GM in Sodium Chloride 0.9% 100 ML IVPB SCH ×3 (04:52→20:31)
[2018-02-01] MEDS: Promethazine/Cod 6.25mg-10mg/5ml Syr UD PO PRN (06:11)
[2018-02-01 07:07] LABS: BLOOD UREA NITROGEN 18 mg/dl (9-20); CALCIUM 8.8 mg/dL (8.4-10.2); GFR NON-AFRICAN AMERICAN > 60
[2018-02-01] MEDS: MethylPREDNISolone 40 mg Vial IVP SCH ×2 (09:03→20:29)
[2018-02-01] MEDS: Acetylcysteine 10% 4 ML IH SCH ×3 (09:23→19:49)
[2018-02-01 12:48] LABS: ABG ALLEN TEST YES; ARTERIAL BLOOD GAS HEMOGLOBIN 15.1 g/dL (11.7-17.4); ARTERIAL BLOOD GAS O2 CAPACITY 20.3 mL/dL (16-24); ARTERIAL BLOOD GAS O2 CONTENT 19.9 ML/dL (15-23); ARTERIAL BLOOD GAS O2 SAT 97.8 % (95-98); ARTERIAL BLOOD GAS PCO2 53 mm/Hg (35-45); ARTERIAL BLOOD GAS PH 7.42 (7.35-7.45); ARTERIAL BLOOD GAS PO2 81 mm/Hg (80-100)
--- NOTE | 2018-02-01 15:48 | CP.PCM.PN ---
Subjective - Date & Time of Evaluation Date of Evaluation: 02/01/18 Time of Evaluation: 10:20 - Subjective Subjective: F/U COPD Exacerbation. Pt awake, no A/D, no SOB, occasional dry cough. Objective - Vital Signs/Intake and Output Vital Signs (last 24 hours): Temp Pulse Resp BP Pulse Ox 98.1 F 72 18 127/77 90 L 02/01/18 08:20 02/01/18 08:20 02/01/18 08:20 02/01/18 08:20 02/01/18 10:24 - Medications Medications: Current Medications Acetylcysteine (Mucomyst 10% 4ml) 3 ml IH RTID [facility] Last Admin: 02/01/18 14:01 Dose: 3 ml Albuterol/Ipratropium (Duoneb 3 Mg/0.5 Mg (3 Ml) Ud) 3 ml INH RQ6 [facility] Last Admin: 02/01/18 14:01 Dose: 3 ml Meropenem 1 gm/ Sodium (Chloride) 100 mls @ 100 mls/hr IVPB Q8@0500,1300,2100 [facility]; Protocol Last Admin: 02/01/18 12:54 Dose: 100 mls/hr Moxifloxacin HCl (Avelox Iv 400mg/250ml Ns) 400 mg in 250 mls @ 250 mls/hr IVPB DAILY@1700 [facility]; Protocol Methylprednisolone (Solu-Medrol) 30 mg IVP Q12 [facility] Last Admin: 02/01/18 09:03 Dose: 30 mg Montelukast Sodium (Singulair) 10 mg PO DAILY@1800 [facility] Last Admin: 01/31/18 17:08 Dose: 10 mg Promethazine HCl/Codeine (Phenergan/Codeine Oral Syrup) 10 ml PO Q4 PRN PRN Reason: Cough Last Admin: 02/01/18 06:11 Dose: 10 ml - Labs Labs: 01/31/18 05:57 02/01/18 06:40 - Constitutional Appears: No Acute Distress - Head Exam Head Exam: NORMAL INSPECTION - Eye Exam Eye Exam: PERRL - ENT Exam ENT Exam: Normal Exam - Neck Exam Neck Exam: Normal Inspection - Respiratory Exam Respiratory Exam: Decreased Breath Sounds (at bases) - Cardiovascular Exam Cardiovascular Exam: REGULAR RHYTHM - GI/Abdominal Exam GI & Abdominal Exam: Soft, Normal Bowel Sounds - Extremities Exam Extremities Exam: Normal Inspection - Back Exam Back Exam: NORMAL INSPECTION - Neurological Exam Neurological Exam: Alert, Awake, Oriented x3. absent: Motor Sensory Deficit - Psychiatric Exam Psychiatric exam: Normal Mood - Skin Skin Exam: Warm Assessment and Plan (1) COPD exacerbation Status: Chronic (2) History of TB (tuberculosis) Status: Chronic (3) Hx of non-ST elevation myocardial infarction (NSTEMI) Status: Chronic (4) Hx pulmonary embolism Status: Chronic - Assessment and Plan (Free Text) Plan: Continue Meren, Solu-Medrol, Phenergan with Co and rest of tx.
[2018-02-01 16:30] VITALS: RESP 20
[2018-02-01] MEDS ORDERED: Moxifloxacin IV 400mg/250ml NS 400 MG/250 ML BAG IVPB SCH (17:00)
[2018-02-02] MEDS: Albuterol-Ipratrop 3 mg / 0.5 (3 ml) UD INH SCH ×3 (01:05→13:00)
[2018-02-02] MEDS: Meropenem 1 GM in Sodium Chloride 0.9% 100 ML IVPB SCH ×2 (04:33→12:17)
[2018-02-02] MEDS: MethylPREDNISolone 40 mg Vial IVP SCH (08:07)
[2018-02-02 08:13] VITALS: BP 135/79; PULSE 81; TEMP 97.5; O2SAT 100
[2018-02-02] MEDS: Acetylcysteine 10% 4 ML IH SCH ×2 (08:40→13:00)
--- NOTE | 2018-02-02 14:20 | CP.PCM.DIS ---
Provider - Provider Date of Admission: 01/26/18 12:15 Attending physician: Ravi Torres MD Consults: Juan Diego Lake Time Spent in preparation of Discharge (in minutes): 35 Diagnosis - Discharge Diagnosis (1) COPD exacerbation Status: Chronic Priority: High (2) History of TB (tuberculosis) Status: Chronic (3) Hx of non-ST elevation myocardial infarction (NSTEMI) Status: Chronic (4) Hx pulmonary embolism Status: Chronic Hospital Course - Lab Results Lab Results: Most Recent Lab Values WBC 10.0 K/uL (4.8-10.8) 01/31/18 05:57 RBC 4.51 Mil/uL (4.40-5.90) 01/31/18 05:57 Hgb 14.1 g/dL (12.0-18.0) 01/31/18 05:57 Hct 42.0 % (35.0-51.0) 01/31/18 05:57 MCV 93.1 fl (80.0-94.0) 01/31/18 05:57 MCH 31.3 pg (27.0-31.0) H 01/31/18 05:57 MCHC 33.7 g/dL (33.0-37.0) 01/31/18 05:57 RDW 14.6 % (11.5-14.5) H 01/31/18 05:57 Plt Count 399 K/uL (130-400) 01/31/18 05:57 MPV 7.2 fl (7.2-11.7) 01/31/18 05:57 Neut % (Auto) 90.0 % (50.0-75.0) H 01/31/18 05:57 Lymph % (Auto) 4.7 % (20.0-40.0) L 01/31/18 05:57 [place] % (Auto) 5.2 % (0.0-10.0) 01/31/18 05:57 Eos % (Auto) 0.0 % (0.0-4.0) 01/31/18 05:57 Baso % (Auto) 0.1 % (0.0-2.0) 01/31/18 05:57 Neut # (Auto) 9.0 K/uL (1.8-7.0) H 01/31/18 05:57 Lymph # (Auto) 0.5 K/uL (1.0-4.3) L 01/31/18 05:57 [place] # (Auto) 0.5 K/uL (0.0-0.8) 01/31/18 05:57 Eos # (Auto) 0.0 K/uL (0.0-0.7) 01/31/18 05:57 Baso # (Auto) 0.0 K/uL (0.0-0.2) 01/31/18 05:57 Neutrophils % (Manual) 92 % (42-75) H 01/31/18 05:57 Band Neutrophils % 1 % (0-2) 01/31/18 05:57 Lymphocytes % (Manual) 4 % (20-50) L 01/31/18 05:57 Monocytes % (Manual) 3 % (0-10) 01/31/18 05:57 Platelet Estimate Normal (NORMAL) 01/31/18 05:57 RBC Morphology Normal (NORMAL) 01/31/18 05:57 pCO2 53 mm/Hg (35-45) H 02/01/18 12:43 pO2 81 mm/Hg (80-100) 02/01/18 12:43 HCO3 31.0 mmol/L (21-28) H 02/01/18 12:43 ABG pH 7.42 (7.35-7.45) 02/01/18 12:43 ABG Total CO2 36.0 mmol/L (22-28) H 02/01/18 12:43 ABG O2 Saturation 97.8 % (95-98) 02/01/18 12:43 ABG O2 Content 19.9 ML/dL (15-23) 02/01/18 12:43 ABG Base Excess 8.0 mmol/L (-2.0-3.0) H 02/01/18 12:43 ABG Hemoglobin 15.1 g/dL (11.7-17.4) 02/01/18 12:43 ABG Carboxyhemoglobin 2.7 % (0.5-1.5) H 02/01/18 12:43 POC ABG HHb (Measured) 2.1 % (0.0-5.0) 02/01/18 12:43 ABG Methemoglobin 1.6 % (0.0-3.0) 02/01/18 12:43 ABG O2 Capacity 20.3 mL/dL (16-24) 02/01/18 12:43 Danny Test Yes 02/01/18 12:43 A-a O2 Difference 52.0 mm/Hg 02/01/18 12:43 Hgb O2 Saturation 93.7 % (95.0-98.0) L 02/01/18 12:43 FiO2 28.0 % 02/01/18 12:43 Sodium 134 mmol/l (132-148) 02/01/18 06:40 Potassium 4.6 MMOL/L (3.6-5.0) 02/01/18 06:40 Chloride 92 mmol/L (98-107) L 02/01/18 06:40 Carbon Dioxide 34 mmol/L (22-30) H 02/01/18 06:40 Anion Gap 13 (10-20) 02/01/18 06:40 BUN 18 mg/dl (9-20) 02/01/18 06:40 Creatinine 0.5 mg/dl (0.8-1.5) L 02/01/18 06:40 Est GFR ( Amer) > 60 02/01/18 06:40 Est GFR (Non-Af Amer) > 60 02/01/18 06:40 Random Glucose 156 mg/dL (75-110) H 02/01/18 06:40 Calcium 8.8 mg/dL (8.4-10.2) 02/01/18 06:40 Total Bilirubin 0.6 mg/dl (0.2-1.3) 01/31/18 05:57 AST 33 U/L (17-59) 01/31/18 05:57 ALT 62 U/L (21-72) 01/31/18 05:57 Alkaline Phosphatase 85 U/L (38-126) 01/31/18 05:57 Total Protein 6.9 G/DL (6.3-8.2) 01/31/18 05:57 Albumin 3.5 g/dL (3.5-5.0) 01/31/18 05:57 Globulin 3.5 gm/dL (2.2-3.9) 01/31/18 05:57 Albumin/Globulin Ratio 1.0 (1.0-2.1) 01/31/18 05:57 - Date & Time of H&P Date of H&P: 01/26/18 Discharge Exam - Head Exam Head Exam: NORMAL INSPECTION - Eye Exam Eye Exam: PERRL - ENT Exam ENT Exam: TM's Normal Bilaterally - Neck Exam Neck exam: Normal Inspection - Respiratory Exam Respiratory Exam: Decreased Breath Sounds (at bases) - Cardiovascular Exam Cardiovascular Exam: REGULAR RHYTHM - GI/Abdominal Exam GI & Abdominal Exam: Normal Bowel Sounds, Soft - Extremities Exam Extremities exam: normal inspection - Back Exam Back exam: NORMAL INSPECTION - Neurological Exam Neurological exam: Alert, Oriented x3 Additional comments: No motor sensory deficit - Psychiatric Exam Psychiatric exam: Normal Mood - Skin Skin Exam: Warm Discharge Plan - Follow Up Plan Condition: GOOD Disposition: HOME/ ROUTINE Patient education suggested?: Yes Instructions: Preventing Falls, Exacerbation of COPD (DC) Additional Instructions: FOLLOW UP WITH PRIMARY MD IN ONE WEEK. Referrals: Ryan Lake MD [Staff Provider] - Ravi Torres MD [Family Provider] -
== END 2018-02-02 14:00 | disposition home or self-care (01) | DRG 190 ==
LOC: H.TCU 01-26 12:15
PROVIDERS: ADMIT Internal Medicine Pulmonary Disease; ATTEND Internal Medicine Pulmonary Disease
PROC: 3E0F73Z Introduction of Anti-inflammatory into Respiratory Tract, Via Natural or Artificial Opening (ICD-10-PCS; principal; 2018-01-26)
PROC: 3E03329 Introduction of Other Anti-infective into Peripheral Vein, Percutaneous Approach (ICD-10-PCS; 2018-01-26)
PROC: F07Z9FZ Gait Training/Functional Ambulation Treatment using Assistive, Adaptive, Supportive or Protective Equipment (ICD-10-PCS; 2018-01-26)
PROC: F08Z4FZ Home Management Treatment using Assistive, Adaptive, Supportive or Protective Equipment (ICD-10-PCS; 2018-01-27)
DX: J44.1 Chronic obstructive pulmonary disease with (acute) exacerbation (principal); J18.9 Pneumonia, unspecified organism; J44.0 Chronic obstructive pulmonary disease with (acute) lower respiratory infection; I27.20 Pulmonary hypertension, unspecified; I25.2 Old myocardial infarction; Z86.711 Personal history of pulmonary embolism; Z86.11 Personal history of tuberculosis; Z87.01 Personal history of pneumonia (recurrent); Z86.73 Personal history of transient ischemic attack (TIA), and cerebral infarction without residual deficits; Z87.891 Personal history of nicotine dependence

== ENCOUNTER 2018-03-17 13:07 | Observation (INO) | payer BC, MEDICARE ==
[2018-03-17 13:07] VITALS: BMI 26.0
[2018-03-17] MEDS ORDERED: Albuterol-Ipratrop 3 mg / 0.5 (3 ml) UD ONE (13:22)
[2018-03-17] MEDS ORDERED: Albuterol-Ipratrop 3 mg / 0.5 (3 ml) UD INH STA (13:33)
--- NOTE | 2018-03-17 14:15 | ED PDOC ---
HPI: SOB/CHF/COPD Chief Complaint (Nursing): Shortness Of Breath Chief Complaint (Provider): Shortness Of Breath History Per: Patient, Family (daughter ) History/Exam Limitations: no limitations Onset/Duration Of Symptoms: Hrs (today morning) Additional Complaint(s): Tacos Andrade is a 73 year old male with a past medical history of COPD and CHF, who presents to the emergency department accompanied by his daughter, c omplaining of shortness of breath since this morning associated with cough and questionable fever. As per daughter, patient is suppose to be on O2 at home but was not approved by insurance. He denies chest pain. PMD: Melissa Rodrigues Past Medical History Reviewed: Historical Data, Nursing Documentation, Vital Signs Vital Signs: Last Vital Signs Temp 98.1 F 03/17/18 13:22 Pulse 121 H 03/17/18 13:56 Resp 30 H 03/17/18 13:22 BP 137/82 03/17/18 13:37 Pulse Ox 60 L 03/17/18 13:22 - Medical History PMH: Asthma, COPD, Pneumonia, Pulmonary Embolism Denies: HIV, Chronic Kidney Disease - Surgical History Surgical History: No Surg Hx - Family History Family History: States: Hypertension - Home Medications Home Medications: Ambulatory Orders Medication Instructions Recorded Montelukast [Singulair] 10 mg PO DAILY 01/20/18 Albuterol/Ipratropium [Duoneb 3 3 ml INH RQ6 neb 01/25/18 mg/0.5 mg (3 ml) UD] - Allergies Allergies/Adverse Reactions: Allergies Allergy/AdvReac Type Severity Reaction Status Date / Time No Known Allergies Allergy Verified 03/17/18 13:20 Review of Systems ROS Statement: Except As Marked, All Systems Reviewed And Found Negative Constitutional: Negative for: Fever (questionable) Cardiovascular: Negative for: Chest Pain Respiratory: Positive for: Shortness of Breath. Negative for: Cough Physical Exam - Reviewed Nursing Documentation Reviewed: Yes Vital Signs Reviewed: Yes - Physical Exam Appears: Positive for: In Acute Distress Head Exam: Positive for: ATRAUMATIC, NORMOCEPHALIC Skin: Positive for: Cyanosis (of the lips) Eye Exam: Positive for: Normal appearance, EOMI, PERRL Cardiovascular/Chest: Positive for: Tachycardia (but regular rhythm) Respiratory: Positive for: Crackles (bilateral), Wheezing (bilateral wheezing), Respiratory Distress (moderate respiratory distress) Gastrointestinal/Abdominal: Positive for: Normal Exam, Soft. Negative for: Tenderness Back: Positive for: Normal Inspection. Negative for: L CVA Tenderness, R CVA Tenderness, Vertebral Tenderness Extremity: Positive for: Normal ROM. Negative for: Pedal Edema, Deformity Neurologic/Psych: Positive for: Alert, Oriented (x3) - Laboratory Results Result Diagrams: 03/18/18 04:45 03/18/18 04:45 - ECG O2 Sat by Pulse Oximetry: 60 (RA) Pulse Ox Interpretation: Abnormal - Critical Care Total Time (In Min): 45 Medical Decision Making Medical Decision Making: Time: 13:32 Plan: --VBG --EKG --ProBNP --CMP --Magnesium --Phosphorous --Troponin I --ED urine dipstick --CBC with differential --PTT --PT --Blood culture --Influenza A B --Urinalysis --BIPAP --Peak flow pre/post tx --Chest X-ray --Albuterol 3 ml INH --Lasix 40 mg IVP --Medrol 125 mg IVP Accession No. : [id number] Patient Name / ID : JOSE CHAMPION / [id number] Exam Date : 03/17/2018 15:00:06 ( Approved ) Study Comment : Sex / Age : M / [id number] Creator : Dictator : Darin Goodman MD Press Tender Smoke Signal : Stable Hand : Darin Goodman MD Approver2 : Report Date : My Comment : Date of service: 03/17/2018 HISTORY: SOB COMPARISON: Comparison made with chest radiograph dated 01/20/[address] scan chest 01/25/2018. FINDINGS: LUNGS: Redemonstrated is moderate right apical pleural thickening associated with superior retraction changes of the right hilum. Extensive cystic bronchiectasis again noted though this is less well seen on this exam as compared to high- resolution CT scan. Ground-glass opacities possibly representing acute infiltrates superimposed on the background of chronic infectious/inflammatory changes that were noted in the bilateral lower lung kelley also less well seen compared to the prior CT scan. PLEURA: No significant pleural effusion identified, no pneumothorax apparent. CARDIOVASCULAR: No aortic atherosclerotic calcification present. Normal cardiac size. No pulmonary vascular congestion. OSSEOUS STRUCTURES: No significant abnormalities. VISUALIZED UPPER ABDOMEN: Normal. OTHER FINDINGS: None. IMPRESSION: Redemonstrated is moderate right apical pleural thickening associated with superior retraction changes of the right hilum. Extensive cystic bronchiectasis again noted though this is less well seen on this exam as compared to high- resolution CT scan. Ground-glass opacities possibly representing acute infiltrates superimposed on the background of chronic infectious/inflammatory changes that were noted in the bilateral lower lung kelley also less well seen compared to the prior CT scan. Scribe Attestation: Documented by Puneet Tang, acting as a scribe for Katja Tipton MD. Provider Scribe Attestation: All medical record entries made by the Scribe were at my direction and personally dictated by me. I have reviewed the chart and agree that the record accurately reflects my personal performance of the history, physical exam, medical decision making, and the department course for this patient. I have also personally directed, reviewed, and agree with the discharge instructions and disposition. Disposition - Clinical Impression Clinical Impression: COPD exacerbation, Sepsis - Patient ED Disposition Is Patient to be Admitted: Yes - Disposition Disposition Time: 15:33 Condition: GUARDED - Pt Status Changed To: Hospital Disposition Of: Inpatient - Admit Certification Admit to Inpatient:: After my assessment, the patient will require hospitalization for at least two midnights. This is because of the severity of symptoms shown, intensity of services needed, and/or the medical risk in this patient being treated as an outpatient. - POA Present On Arrival: None
[2018-03-17 14:33] LABS: VENOUS BLOOD GAS BASE EXCESS 5.4 mmol/L (0.0-2.0); VENOUS BLOOD GAS PCO2 75 mmHg (40-60); VENOUS BLOOD GAS PO2 32 mm/Hg (30-55); VENOUS BLOOD PH 7.28 (7.32-7.43)
[2018-03-17 14:43] LABS: BASO # 0.1 K/uL (0.0-0.2); BASO % 0.4 % (0.0-2.0); EOS % 0.1 % (0.0-4.0); HEMOGLOBIN 13.9 g/dL (12.0-18.0); LYMPH # 0.8 K/uL (1.0-4.3); LYMPH % 5.6 % (20.0-40.0); MEAN CELL VOLUME 93.8 fl (80.0-94.0); MEAN CORPUSCULAR HEMOGLOBIN 30.5 pg (27.0-31.0); MEAN CORPUSCULAR HGB CONC 32.5 g/dL (33.0-37.0); MEAN PLATELET VOLUME 7.7 fl (7.2-11.7); MONO # 0.6 K/uL (0.0-0.8); MONO % 4.3 % (0.0-10.0); NEUT # 13.1 K/uL (1.8-7.0); NEUT % 89.6 % (50.0-75.0); PLATELET COUNT 298 K/uL (130-400); RBC 4.55 Mil/uL (4.40-5.90); WHITE BLOOD COUNT 14.6 K/uL (4.8-10.8)
[2018-03-17 14:52] LABS: URINE BILIRUBIN NEGATIVE (NEGATIVE); URINE BLOOD NEGATIVE (NEGATIVE); URINE CLARITY CLEAR (Clear); URINE COLOR YELLOW (YELLOW); URINE GLUCOSE (UA) NEG (NEGATIVE); URINE LEUKOCYTE ESTERASE NEG Leu/uL (Negative); URINE PROTEIN NEGATIVE (NEGATIVE); URINE UROBILINOGEN 0.2-1.0 mg/dL (0.2-1.0)
[2018-03-17] MEDS ORDERED: Azithromycin 500 MG in Sodium Chloride 0.9% 250 ML IV STA (14:52)
[2018-03-17 14:54] LABS: ALBUMIN 4.1 g/dL (3.5-5.0); ALT/SGPT 32 U/L (21-72); AST/SGOT 25 U/L (17-59); BLOOD UREA NITROGEN 14 mg/dl (9-20); CALCIUM 9.3 mg/dL (8.4-10.2); GFR NON-AFRICAN AMERICAN > 60
[2018-03-17 14:55] LABS: INR 1.1; PROTHROMBIN TIME 12.7 Seconds (9.8-13.1)
[2018-03-17 15:08] LABS: B-TYPE NATRIURETIC PEPTIDE 447 pg/ml (0-900)
[2018-03-17 15:44] LABS: BANDS 1 % (0-2); BASOPHIL 1 % (0-2); LYMPHOCYTE 4 % (20-50); MONOCYTE 3 % (0-10); NEUTROPHIL 90 % (42-75); PLATELET ESTIMATE NORMAL (NORMAL); REACTIVE LYMPHOCYTES 1 % (0-0); TOTAL CELLS COUNTED 100
[2018-03-17 15:45] LABS: ANISOCYTOSIS SLIGHT
[2018-03-17] MEDS ORDERED: Azithromycin 500 MG IV IVPB ONE (16:15)
[2018-03-17] MEDS ORDERED: Albuterol-Ipratrop 3 mg / 0.5 (3 ml) UD INH PRN (16:30)
[2018-03-17] MEDS ORDERED: methylPREDNISolone 60 MG in Sodium Chloride 0.9% 50 ML IV SCH (17:00)
[2018-03-17] MEDS ORDERED: methylPREDNISolone 60 MG in Sodium Chloride 0.9% 50 ML IVPB SCH (17:00)
[2018-03-17 17:01] LABS: VENOUS BLOOD GAS BASE EXCESS 5.6 mmol/L (0.0-2.0); VENOUS BLOOD GAS PCO2 62 mmHg (40-60); VENOUS BLOOD GAS PO2 42 mm/Hg (30-55); VENOUS BLOOD PH 7.34 (7.32-7.43)
--- NOTE | 2018-03-17 17:14 | RAD ---
Date of service: 03/17/2018 HISTORY: SOB COMPARISON: Comparison made with chest radiograph dated 01/20/[address] scan chest 01/25/2018. FINDINGS: LUNGS: Redemonstrated is moderate right apical pleural thickening associated with superior retraction changes of the right hilum. Extensive cystic bronchiectasis again noted though this is less well seen on this exam as compared to high-resolution CT scan. Ground-glass opacities possibly representing acute infiltrates superimposed on the background of chronic infectious/inflammatory changes that were noted in the bilateral lower lung kelley also less well seen compared to the prior CT scan. PLEURA: No significant pleural effusion identified, no pneumothorax apparent. CARDIOVASCULAR: No aortic atherosclerotic calcification present. Normal cardiac size. No pulmonary vascular congestion. OSSEOUS STRUCTURES: No significant abnormalities. VISUALIZED UPPER ABDOMEN: Normal. OTHER FINDINGS: None. IMPRESSION: Redemonstrated is moderate right apical pleural thickening associated with superior retraction changes of the right hilum. Extensive cystic bronchiectasis again noted though this is less well seen on this exam as compared to high-resolution CT scan. Ground-glass opacities possibly representing acute infiltrates superimposed on the background of chronic infectious/inflammatory changes that were noted in the bilateral lower lung kelley also less well seen compared to the prior CT scan.
[2018-03-17] MEDS ORDERED: MethylPREDNISolone 40 mg Vial ONE (17:41)
--- NOTE | 2018-03-17 19:51 | CP.PCM.HP ---
<Jann Cai - Last Filed: 03/17/18 19:41> History of Present Illness - History of Present Illness History of Present Illness: 73 y/o M with a PMHx of COPD presented to ED complaining of SOB that aggravated this morning after waking up at 07:30 am and did NOT improved with 2x nebulizer treatment. Pt also complains of productive cough with thick yellow sputum and upper back pain with coughing. Pt receives neb treatment TID. No ill contacts. No recent travel. Pt denies fever, nasal congestion, dizziness, chest pain, nausea, vomiting, abdominal pain or changes in bowel movement. Pt reports that SOB --Pt unable to give specific information on interview. Pt does not remember his past medical Hx or list of medications. Most of following information obtained from chart review of today's and past visits. --Pt was prescribed oxygen at home; however denied by insurance. PMD: Dr Torres Allergies: NKDA Meds: undetermined. --PMHx: COPD, Pulmonary HTN, TB in 1962, PE, NSTEMI. 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 --PSHx: cholecystectomy in 2002. --FHx: Parents due to natural causes as per patient. --SHx: Never smoker, ocasional alcohol and NO recreational drugs. At ED: --VS: HR 135-high, RR 30-high, O2 Sat 60%-low. --BIPAP initated --Chest X-ray with bronchiectasis and chronic fibrotic changes. --Albuterol 3 ml INH administered --Lasix 40 mg IVP administered --Medrol 125 mg IVP administered Present on Admission - Present on Admission Any Indicators Present on Admission: Yes History of DVT/PE: Yes Review of Systems - Constitutional Constitutional: absent: Anorexia, Chills, Fever, Weakness - EENT Nose/Mouth/Throat: absent: Nasal Congestion, Sore Throat, Throat Swelling, Tongue Swelling, Neck Pain - Cardiovascular Cardiovascular: absent: Chest Pain, Chest Pain at Rest, Claudication - Respiratory Respiratory: Cough, Dyspnea. absent: Hemoptysis - Gastrointestinal Gastrointestinal: absent: Abdominal Pain, Hematochezia, Nausea, Vomiting - Genitourinary Genitourinary: absent: Dysuria, Flank Pain, Urinary Frequency Past Patient History - Infectious Disease Hx of Infectious Diseases: None - Past Medical History & Family History Past Medical History?: Yes - Past Social History Smoking Status: Former Smoker - CARDIAC Hx Cardiac Disorders: Yes (Hx NSTEMI) Hx Heart Attack: Yes (NSTEMI) - PULMONARY Hx Respiratory Disorders: Yes - NEUROLOGICAL HX Cerebrovascular Accident: Yes - HEENT Hx HEENT Problems: No - RENAL Hx Chronic Kidney Disease: No - ENDOCRINE/METABOLIC Hx Endocrine Disorders: No - HEMATOLOGICAL/ONCOLOGICAL Hx Human Immunodeficiency Virus (HIV): No - INTEGUMENTARY Hx Dermatological Problems: No - MUSCULOSKELETAL/RHEUMATOLOGICAL Hx Musculoskeletal Disorders: Yes - GASTROINTESTINAL Hx Gastrointestinal Disorders: No - GENITOURINARY/GYNECOLOGICAL Hx Genitourinary Disorders: No Hx Urinary Tract Infection: No - PSYCHIATRIC Hx Psychophysiologic Disorder: No Hx Substance Use: No - SURGICAL HISTORY Hx Surgeries: No - ANESTHESIA Hx Anesthesia: No Hx Anesthesia Reactions: No Meds Allergies/Adverse Reactions: Allergies Allergy/AdvReac Type Severity Reaction Status Date / Time No Known Allergies Allergy Verified 03/17/18 13:20 Physical Exam - Constitutional Appears: In Acute Distress (On BiPAP machine. ) - Head Exam Head Exam: ATRAUMATIC, NORMAL INSPECTION - Eye Exam Eye Exam: EOMI, Normal appearance Pupil Exam: PERRL - ENT Exam ENT Exam: Mucous Membranes Moist - Neck Exam Neck exam: Positive for: Full Rom, Normal Inspection. Negative for: Lymphadenopathy, Meningismus - Respiratory Exam Respiratory Exam: Wheezes (bilateral on expiration. ), Respiratory Distress (on BiPAP) Additional comments: Presence of ronchi on RUL. Decreased breath sounds on bilateral lower kelley. - Cardiovascular Exam Cardiovascular Exam: +S1, +S2 - GI/Abdominal Exam GI & Abdominal Exam: Soft. absent: Distended, Firm, Guarding, Tenderness - Back Exam Back exam: absent: CVA tenderness (L), CVA tenderness (R) - Neurological Exam Neurological exam: Alert, Oriented x3 Results - Vital Signs Recent Vital Signs: Last Vital Signs Temp 98.9 F 03/17/18 18:02 Pulse 106 H 03/17/18 18:02 Resp 18 03/17/18 18:02 BP 128/72 03/17/18 18:02 Pulse Ox 93 L 03/17/18 18:02 - Labs Result Diagrams: 03/17/18 14:20 03/17/18 14:20 Labs: Laboratory Results - last 24 hr 03/17/18 03/17/18 03/17/18 14:09 14:20 14:20 WBC 14.6 H RBC 4.55 Hgb 13.9 Hct 42.7 MCV 93.8 MCH 30.5 MCHC 32.5 L RDW 16.0 H Plt Count 298 D MPV 7.7 Neut % (Auto) 89.6 H Lymph % (Auto) 5.6 L [place] % (Auto) 4.3 Eos % (Auto) 0.1 Baso % (Auto) 0.4 Neut # (Auto) 13.1 H Lymph # (Auto) 0.8 L [place] # (Auto) 0.6 Eos # (Auto) 0.0 Baso # (Auto) 0.1 Neutrophils % (Manual) 90 H Band Neutrophils % 1 Lymphocytes % (Manual) 4 L Reactive Lymphs % 1 H Monocytes % (Manual) 3 Basophils % (Manual) 1 Platelet Estimate Normal Anisocytosis (manual) Slight PT INR APTT pO2 32 VBG pH 7.28 L VBG pCO2 75 H* VBG HCO3 27.7 VBG Total CO2 37.5 H VBG O2 Sat (Calc) 54.6 VBG Base Excess 5.4 H VBG Potassium 4.7 Sodium 135.0 137 Chloride 98.0 96 L Glucose 154 H Lactate 2.1 FiO2 50.0 Blood Gas Comments Vbg Crit Value Called To Dr. sincere salazar m.d. Crit Value Called By Xin Crit Value Read Back Y Blood Gas Notified Time 1432 Potassium 4.8 Carbon Dioxide 31 H Anion Gap 15 BUN 14 Creatinine 0.6 L Est GFR ( Amer) > 60 Est GFR (Non-Af Amer) > 60 Random Glucose 159 H Calcium 9.3 Phosphorus Magnesium Total Bilirubin 0.9 AST 25 ALT 32 Alkaline Phosphatase 93 Troponin I < 0.0120 NT-Pro-B Natriuret Pep 447 Total Protein 8.0 Albumin 4.1 Globulin 3.9 Albumin/Globulin Ratio 1.0 Venous Blood Potassium 4.7 Urine Color Urine Clarity Urine pH Ur Specific [place] Urine Protein Urine Glucose (UA) Urine Ketones Urine Blood Urine Nitrate Urine Bilirubin Urine Urobilinogen Ur Leukocyte Esterase Urine RBC (Auto) Urine Microscopic WBC Influenza Typ A,B (EIA) 03/17/18 03/17/18 03/17/18 14:20 14:20 14:20 WBC RBC Hgb Hct MCV MCH MCHC RDW Plt Count MPV Neut % (Auto) Lymph % (Auto) [place] % (Auto) Eos % (Auto) Baso % (Auto) Neut # (Auto) Lymph # (Auto) [place] # (Auto) Eos # (Auto) Baso # (Auto) Neutrophils % (Manual) Band Neutrophils % Lymphocytes % (Manual) Reactive Lymphs % Monocytes % (Manual) Basophils % (Manual) Platelet Estimate Anisocytosis (manual) PT 12.7 INR 1.1 APTT 35.0 pO2 VBG pH VBG pCO2 VBG HCO3 VBG Total CO2 VBG O2 Sat (Calc) VBG Base Excess VBG Potassium Sodium Chloride Glucose Lactate FiO2 Blood Gas Comments Crit Value Called To Crit Value Called By Crit Value Read Back Blood Gas Notified Time Potassium Carbon Dioxide Anion Gap BUN Creatinine Est GFR ( Amer) Est GFR (Non-Af Amer) Random Glucose Calcium Phosphorus Magnesium Total Bilirubin AST ALT Alkaline Phosphatase Troponin I NT-Pro-B Natriuret Pep Total Protein Albumin Globulin Albumin/Globulin Ratio Venous Blood Potassium Urine Color Yellow Urine Clarity Clear Urine pH 6.0 Ur Specific [place] 1.009 Urine Protein Negative Urine Glucose (UA) Neg Urine Ketones Negative Urine Blood Negative Urine Nitrate Negative Urine Bilirubin Negative Urine Urobilinogen 0.2-1.0 Ur Leukocyte Esterase Neg Urine RBC (Auto) < 1 Urine Microscopic WBC < 1 Influenza Typ A,B (EIA) Negative for flu a/b 03/17/18 03/17/18 14:37 16:52 WBC RBC Hgb Hct MCV MCH MCHC RDW Plt Count MPV Neut % (Auto) Lymph % (Auto) [place] % (Auto) Eos % (Auto) Baso % (Auto) Neut # (Auto) Lymph # (Auto) [place] # (Auto) Eos # (Auto) Baso # (Auto) Neutrophils % (Manual) Band Neutrophils % Lymphocytes % (Manual) Reactive Lymphs % Monocytes % (Manual) Basophils % (Manual) Platelet Estimate Anisocytosis (manual) PT INR APTT pO2 42 VBG pH 7.34 VBG pCO2 62 H VBG HCO3 28.7 VBG Total CO2 35.3 H VBG O2 Sat (Calc) 76.3 H VBG Base Excess 5.6 H VBG Potassium 4.1 Sodium 135.0 Chloride 98.0 Glucose 198 H Lactate 1.6 FiO2 28.0 Blood Gas Comments Crit Value Called To Crit Value Called By Crit Value Read Back Blood Gas Notified Time Potassium Carbon Dioxide Anion Gap BUN Creatinine Est GFR ( Amer) Est GFR (Non-Af Amer) Random Glucose Calcium Phosphorus 3.5 Magnesium 1.7 Total Bilirubin AST ALT Alkaline Phosphatase Troponin I NT-Pro-B Natriuret Pep Total Protein Albumin Globulin Albumin/Globulin Ratio Venous Blood Potassium 4.1 Urine Color Urine Clarity Urine pH Ur Specific [place] Urine Protein Urine Glucose (UA) Urine Ketones Urine Blood Urine Nitrate Urine Bilirubin Urine Urobilinogen Ur Leukocyte Esterase Urine RBC (Auto) Urine Microscopic WBC Influenza Typ A,B (EIA) Assessment & Plan - Assessment and Plan (Free Text) Assessment: 72 y/o M with a PMHx of COPD, Pulmonary HTN, TB in 1962, PE, NSTEMI was admitted for evaluation and management of COPD exacerbation. PLAN: >Dypnea, most likely COPD exacerbation. --Less likely causes: acute heart failure due to negative Pro-BNP, ACS due to negative troponin. --Stop BiPAP. Initiate Oxygen by NC at 2L/min which was tolerated well by patient. --Admit to Telemetry. --Oxygen to a goal of low 90s. --Duoneb Q4H --Solu-Medrol 60mg Q8H --Ceftriaxone and Azithromycin ordered. >Hx of NSTEMI --Negative Pro-BNP adn troponin. >DVT prophylaxis. --Hx of pulmonary embolism --Denied anticoagulation therapy. --Will start DVT prophylaxis: Lovenox 40mg daily. Case discussed with Dr Quintero. GTolentino PGY-2 - Date & Time Date: 03/17/18 Time: 18:00 <Lawrence Quintero D - Last Filed: 03/18/18 09:25> Results - Vital Signs Recent Vital Signs: Last Vital Signs Temp 97.6 F 03/18/18 08:00 Pulse 94 H 03/18/18 08:00 Resp 18 03/18/18 08:00 BP 142/84 03/18/18 08:00 Pulse Ox 60 L 03/18/18 08:02 - Labs Result Diagrams: 03/18/18 04:45 03/18/18 04:45 Labs: Laboratory Results - last 24 hr 03/17/18 03/17/18 03/17/18 14:09 14:20 14:20 WBC 14.6 H RBC 4.55 Hgb 13.9 Hct 42.7 MCV 93.8 MCH 30.5 MCHC 32.5 L RDW 16.0 H Plt Count 298 D MPV 7.7 Neut % (Auto) 89.6 H Lymph % (Auto) 5.6 L [place] % (Auto) 4.3 Eos % (Auto) 0.1 Baso % (Auto) 0.4 Neut # (Auto) 13.1 H Lymph # (Auto) 0.8 L [place] # (Auto) 0.6 Eos # (Auto) 0.0 Baso # (Auto) 0.1 Neutrophils % (Manual) 90 H Band Neutrophils % 1 Lymphocytes % (Manual) 4 L Reactive Lymphs % 1 H Monocytes % (Manual) 3 Basophils % (Manual) 1 Platelet Estimate Normal Anisocytosis (manual) Slight PT INR APTT pO2 32 VBG pH 7.28 L VBG pCO2 75 H* VBG HCO3 27.7 VBG Total CO2 37.5 H VBG O2 Sat (Calc) 54.6 VBG Base Excess 5.4 H VBG Potassium 4.7 Sodium 135.0 137 Chloride 98.0 96 L Glucose 154 H Lactate 2.1 FiO2 50.0 Blood Gas Comments Vbg Crit Value Called To Dr. sincere salazar m.d. Crit Value Called By Xin Crit Value Read Back Y Blood Gas Notified Time 1432 Potassium 4.8 Carbon Dioxide 31 H Anion Gap 15 BUN 14 Creatinine 0.6 L Est GFR ( Amer) > 60 Est GFR (Non-Af Amer) > 60 Random Glucose 159 H Calcium 9.3 Phosphorus Magnesium Total Bilirubin 0.9 AST 25 ALT 32 Alkaline Phosphatase 93 Troponin I < 0.0120 NT-Pro-B Natriuret Pep 447 Total Protein 8.0 Albumin 4.1 Globulin 3.9 Albumin/Globulin Ratio 1.0 Venous Blood Potassium 4.7 Urine Color Urine Clarity Urine pH Ur Specific [place] Urine Protein Urine Glucose (UA) Urine Ketones Urine Blood Urine Nitrate Urine Bilirubin Urine Urobilinogen Ur Leukocyte Esterase Urine RBC (Auto) Urine Microscopic WBC Influenza Typ A,B (EIA) 03/17/18 03/17/18 03/17/18 14:20 14:20 14:20 WBC RBC Hgb Hct MCV MCH MCHC RDW Plt Count MPV Neut % (Auto) Lymph % (Auto) [place] % (Auto) Eos % (Auto) Baso % (Auto) Neut # (Auto) Lymph # (Auto) [place] # (Auto) Eos # (Auto) Baso # (Auto) Neutrophils % (Manual) Band Neutrophils % Lymphocytes % (Manual) Reactive Lymphs % Monocytes % (Manual) Basophils % (Manual) Platelet Estimate Anisocytosis (manual) PT 12.7 INR 1.1 APTT 35.0 pO2 VBG pH VBG pCO2 VBG HCO3 VBG Total CO2 VBG O2 Sat (Calc) VBG Base Excess VBG Potassium Sodium Chloride Glucose Lactate FiO2 Blood Gas Comments Crit Value Called To Crit Value Called By Crit Value Read Back Blood Gas Notified Time Potassium Carbon Dioxide Anion Gap BUN Creatinine Est GFR ( Amer) Est GFR (Non-Af Amer) Random Glucose Calcium Phosphorus Magnesium Total Bilirubin AST ALT Alkaline Phosphatase Troponin I NT-Pro-B Natriuret Pep Total Protein Albumin Globulin Albumin/Globulin Ratio Venous Blood Potassium Urine Color Yellow Urine Clarity Clear Urine pH 6.0 Ur Specific [place] 1.009 Urine Protein Negative Urine Glucose (UA) Neg Urine Ketones Negative Urine Blood Negative Urine Nitrate Negative Urine Bilirubin Negative Urine Urobilinogen 0.2-1.0 Ur Leukocyte Esterase Neg Urine RBC (Auto) < 1 Urine Microscopic WBC < 1 Influenza Typ A,B (EIA) Negative for flu a/b 03/17/18 03/17/18 03/18/18 14:37 16:52 04:45 WBC 6.7 D RBC 4.52 Hgb 13.7 Hct 41.2 MCV 91.3 D MCH 30.3 MCHC 33.3 RDW 15.7 H Plt Count 251 MPV Neut % (Auto) Lymph % (Auto) [place] % (Auto) Eos % (Auto) Baso % (Auto) Neut # (Auto) Lymph # (Auto) [place] # (Auto) Eos # (Auto) Baso # (Auto) Neutrophils % (Manual) Band Neutrophils % Lymphocytes % (Manual) Reactive Lymphs % Monocytes % (Manual) Basophils % (Manual) Platelet Estimate Anisocytosis (manual) PT INR APTT pO2 42 VBG pH 7.34 VBG pCO2 62 H VBG HCO3 28.7 VBG Total CO2 35.3 H VBG O2 Sat (Calc) 76.3 H VBG Base Excess 5.6 H VBG Potassium 4.1 Sodium 135.0 Chloride 98.0 Glucose 198 H Lactate 1.6 FiO2 28.0 Blood Gas Comments Crit Value Called To Crit Value Called By Crit Value Read Back Blood Gas Notified Time Potassium Carbon Dioxide Anion Gap BUN Creatinine Est GFR ( Amer) Est GFR (Non-Af Amer) Random Glucose Calcium Phosphorus 3.5 Magnesium 1.7 Total Bilirubin AST ALT Alkaline Phosphatase Troponin I NT-Pro-B Natriuret Pep Total Protein Albumin Globulin Albumin/Globulin Ratio Venous Blood Potassium 4.1 Urine Color Urine Clarity Urine pH Ur Specific [place] Urine Protein Urine Glucose (UA) Urine Ketones Urine Blood Urine Nitrate Urine Bilirubin Urine Urobilinogen Ur Leukocyte Esterase Urine RBC (Auto) Urine Microscopic WBC Influenza Typ A,B (EIA) 03/18/18 04:45 WBC RBC Hgb Hct MCV MCH MCHC RDW Plt Count MPV Neut % (Auto) Lymph % (Auto) [place] % (Auto) Eos % (Auto) Baso % (Auto) Neut # (Auto) Lymph # (Auto) [place] # (Auto) Eos # (Auto) Baso # (Auto) Neutrophils % (Manual) Band Neutrophils % Lymphocytes % (Manual) Reactive Lymphs % Monocytes % (Manual) Basophils % (Manual) Platelet Estimate Anisocytosis (manual) PT INR APTT pO2 VBG pH VBG pCO2 VBG HCO3 VBG Total CO2 VBG O2 Sat (Calc) VBG Base Excess VBG Potassium Sodium 139 Chloride 99 Glucose Lactate FiO2 Blood Gas Comments Crit Value Called To Crit Value Called By Crit Value Read Back Blood Gas Notified Time Potassium 4.3 Carbon Dioxide 35 H Anion Gap 9 L BUN 15 Creatinine 0.5 L Est GFR ( Amer) > 60 Est GFR (Non-Af Amer) > 60 Random Glucose 160 H Calcium 8.8 Phosphorus Magnesium Total Bilirubin AST ALT Alkaline Phosphatase Troponin I NT-Pro-B Natriuret Pep Total Protein Albumin Globulin Albumin/Globulin Ratio Venous Blood Potassium Urine Color Urine Clarity Urine pH Ur Specific [place] Urine Protein Urine Glucose (UA) Urine Ketones Urine Blood Urine Nitrate Urine Bilirubin Urine Urobilinogen Ur Leukocyte Esterase Urine RBC (Auto) Urine Microscopic WBC Influenza Typ A,B (EIA) Attending/Attestation - Attestation I have personally seen and examined this patient.: Yes I have fully participated in the care of the patient.: Yes I have reviewed all pertinent clinical information: Yes Notes (Text): 03/18/18 09:25 Patient seen and examined with resident. Case discussed and agreed with assessment and plan of management.
[2018-03-17] MEDS: Fluticasone-Salmeterol 250-50mcg Diskus IH SCH (21:58)
[2018-03-18 05:36] LABS: HEMOGLOBIN 13.7 g/dL (12.0-18.0); MEAN CELL VOLUME 91.3 fl (80.0-94.0); MEAN CORPUSCULAR HEMOGLOBIN 30.3 pg (27.0-31.0); MEAN CORPUSCULAR HGB CONC 33.3 g/dL (33.0-37.0); RBC 4.52 Mil/uL (4.40-5.90); RED CELL DISTRIBUTION WIDTH 15.7 % (11.5-14.5); WHITE BLOOD COUNT 6.7 K/uL (4.8-10.8)
[2018-03-18 05:39] LABS: BLOOD UREA NITROGEN 15 mg/dl (9-20); CALCIUM 8.8 mg/dL (8.4-10.2); GFR NON-AFRICAN AMERICAN > 60
[2018-03-18] MEDS: Fluticasone-Salmeterol 250-50mcg Diskus IH SCH (08:46)
[2018-03-18] MEDS ORDERED: guaiFENesin 600 mg ER Tab PO SCH (09:00)
[2018-03-18] MEDS ORDERED: Enoxaparin 40 mg Syringe SC SCH (09:00)
[2018-03-18] MEDS ORDERED: Azithromycin 500 MG in Sodium Chloride 0.9% 250 ML IVPB SCH (09:00)
[2018-03-18 12:46] VITALS: BP 126/76; PULSE 97; RESP 20; TEMP 97.8; O2SAT 97
--- NOTE | 2018-03-18 13:27 | CP.PCM.DIS ---
<Marck Aguilar - Last Filed: 03/18/18 14:00> Provider - Provider Date of Admission: 03/17/18 15:33 Attending physician: Lawrence Quintero MD Time Spent in preparation of Discharge (in minutes): 30 Diagnosis - Discharge Diagnosis (1) COPD exacerbation Status: Acute Priority: High (2) Pulmonary HTN Status: Chronic Priority: High (3) Hx pulmonary embolism Status: Chronic Hospital Course - Lab Results Lab Results: Most Recent Lab Values WBC 6.7 K/uL (4.8-10.8) D 03/18/18 04:45 RBC 4.52 Mil/uL (4.40-5.90) 03/18/18 04:45 Hgb 13.7 g/dL (12.0-18.0) 03/18/18 04:45 Hct 41.2 % (35.0-51.0) 03/18/18 04:45 MCV 91.3 fl (80.0-94.0) D 03/18/18 04:45 MCH 30.3 pg (27.0-31.0) 03/18/18 04:45 MCHC 33.3 g/dL (33.0-37.0) 03/18/18 04:45 RDW 15.7 % (11.5-14.5) H 03/18/18 04:45 Plt Count 251 K/uL (130-400) 03/18/18 04:45 MPV 7.7 fl (7.2-11.7) 03/17/18 14:20 Neut % (Auto) 89.6 % (50.0-75.0) H 03/17/18 14:20 Lymph % (Auto) 5.6 % (20.0-40.0) L 03/17/18 14:20 [place] % (Auto) 4.3 % (0.0-10.0) 03/17/18 14:20 Eos % (Auto) 0.1 % (0.0-4.0) 03/17/18 14:20 Baso % (Auto) 0.4 % (0.0-2.0) 03/17/18 14:20 Neut # (Auto) 13.1 K/uL (1.8-7.0) H 03/17/18 14:20 Lymph # (Auto) 0.8 K/uL (1.0-4.3) L 03/17/18 14:20 [place] # (Auto) 0.6 K/uL (0.0-0.8) 03/17/18 14:20 Eos # (Auto) 0.0 K/uL (0.0-0.7) 03/17/18 14:20 Baso # (Auto) 0.1 K/uL (0.0-0.2) 03/17/18 14:20 Neutrophils % (Manual) 90 % (42-75) H 03/17/18 14:20 Band Neutrophils % 1 % (0-2) 03/17/18 14:20 Lymphocytes % (Manual) 4 % (20-50) L 03/17/18 14:20 Reactive Lymphs % 1 % (0-0) H 03/17/18 14:20 Monocytes % (Manual) 3 % (0-10) 03/17/18 14:20 Basophils % (Manual) 1 % (0-2) 03/17/18 14:20 Platelet Estimate Normal (NORMAL) 03/17/18 14:20 Anisocytosis (manual) Slight 03/17/18 14:20 PT 12.7 Seconds (9.8-13.1) 03/17/18 14:20 INR 1.1 03/17/18 14:20 APTT 35.0 Seconds (25.6-37.1) 03/17/18 14:20 pO2 42 mm/Hg (30-55) 03/17/18 16:52 VBG pH 7.34 (7.32-7.43) 03/17/18 16:52 VBG pCO2 62 mmHg (40-60) H 03/17/18 16:52 VBG HCO3 28.7 mmol/L 03/17/18 16:52 VBG Total CO2 35.3 mmol/L (22-28) H 03/17/18 16:52 VBG O2 Sat (Calc) 76.3 % (40-65) H 03/17/18 16:52 VBG Base Excess 5.6 mmol/L (0.0-2.0) H 03/17/18 16:52 VBG Potassium 4.1 mmol/L (3.6-5.2) 03/17/18 16:52 Sodium 135.0 mmol/L (132-148) 03/17/18 16:52 Chloride 98.0 mmol/L (98-107) 03/17/18 16:52 Glucose 198 mg/dL (75-110) H 03/17/18 16:52 Lactate 1.6 mmol/L (0.7-2.1) 03/17/18 16:52 FiO2 28.0 % 03/17/18 16:52 Blood Gas Comments Vbg 03/17/18 14:09 Crit Value Called To Dr. sincere salazar m.d. 03/17/18 14:09 Crit Value Called By Xin 03/17/18 14:09 Crit Value Read Back Y 03/17/18 14:09 Blood Gas Notified Time 1432 03/17/18 14:09 Sodium 139 mmol/l (132-148) 03/18/18 04:45 Potassium 4.3 MMOL/L (3.6-5.0) 03/18/18 04:45 Chloride 99 mmol/L (98-107) 03/18/18 04:45 Carbon Dioxide 35 mmol/L (22-30) H 03/18/18 04:45 Anion Gap 9 (10-20) L 03/18/18 04:45 BUN 15 mg/dl (9-20) 03/18/18 04:45 Creatinine 0.5 mg/dl (0.8-1.5) L 03/18/18 04:45 Est GFR ( Amer) > 60 03/18/18 04:45 Est GFR (Non-Af Amer) > 60 03/18/18 04:45 Random Glucose 160 mg/dL (75-110) H 03/18/18 04:45 Calcium 8.8 mg/dL (8.4-10.2) 03/18/18 04:45 Phosphorus 3.5 mg/dl (2.5-4.5) 03/17/18 14:37 Magnesium 1.7 MG/DL (1.6-2.3) 03/17/18 14:37 Total Bilirubin 0.9 mg/dl (0.2-1.3) 03/17/18 14:20 AST 25 U/L (17-59) 03/17/18 14:20 ALT 32 U/L (21-72) 03/17/18 14:20 Alkaline Phosphatase 93 U/L (38-126) 03/17/18 14:20 Troponin I < 0.0120 ng/mL (0.00-0.120) 03/17/18 14:20 NT-Pro-B Natriuret Pep 447 pg/ml (0-900) 03/17/18 14:20 Total Protein 8.0 G/DL (6.3-8.2) 03/17/18 14:20 Albumin 4.1 g/dL (3.5-5.0) 03/17/18 14:20 Globulin 3.9 gm/dL (2.2-3.9) 03/17/18 14:20 Albumin/Globulin Ratio 1.0 (1.0-2.1) 03/17/18 14:20 Venous Blood Potassium 4.1 mmol/L (3.6-5.2) 03/17/18 16:52 Urine Color Yellow (YELLOW) 03/17/18 14:20 Urine Clarity Clear (Clear) 03/17/18 14:20 Urine pH 6.0 (5.0-8.0) 03/17/18 14:20 Ur Specific [place] 1.009 (1.003-1.030) 03/17/18 14:20 Urine Protein Negative mg/dL (NEGATIVE) 03/17/18 14:20 Urine Glucose (UA) Neg mg/dL (NEGATIVE) 03/17/18 14:20 Urine Ketones Negative mg/dL (NEGATIVE) 03/17/18 14:20 Urine Blood Negative (NEGATIVE) 03/17/18 14:20 Urine Nitrate Negative (NEGATIVE) 03/17/18 14:20 Urine Bilirubin Negative (NEGATIVE) 03/17/18 14:20 Urine Urobilinogen 0.2-1.0 mg/dL (0.2-1.0) 03/17/18 14:20 Ur Leukocyte Esterase Neg [place]/uL (Negative) 03/17/18 14:20 Urine RBC (Auto) < 1 /hpf (0-3) 03/17/18 14:20 Urine Microscopic WBC < 1 /hpf (0-5) 03/17/18 14:20 Influenza Typ A,B (EIA) Negative for flu a/b (NEGATIVE) 03/17/18 14:20 - Hospital Course Hospital Course: 73 y/o M with PMHx of COPD presents to ED complaining of dyspnea that started after waking up. Patient tried nebulizer treatment at home w/o improvement so decided to ED. Patient evaluated in ED, initial O2 sat <60% which improved with BiPAP. Patient received albuterol, lasix, ceftriaxone and medrol in ED with i mprovement in symptoms. CXR done consistent with bronchiectesis and chronic fibrotic change. Patient started on Duoneb, advair, montelucast, and azithromycin. Patient's respiratory status improved and VSS stable on 03/18 with O2 sat >92% on NC. Patient to be discharged home. Patient to F/U with PMD in 2- 4 days. Discharge Medications -Montelucast 10 mg pO daily -Medrol dose pack -Advair 250/50 q puff BID -Azithromycin 500 mg PO daily Discharge Exam - Head Exam Head Exam: ATRAUMATIC, NORMOCEPHALIC - Eye Exam Eye Exam: EOMI, Normal appearance - ENT Exam ENT Exam: Mucous Membranes Moist - Neck Exam Neck exam: Full Rom - Respiratory Exam Respiratory Exam: Clear to PA & Lateral. absent: Rales, Rhonchi, Wheezes, Respiratory Distress - Cardiovascular Exam Cardiovascular Exam: REGULAR RHYTHM, +S1, +S2. absent: Systolic Murmur - GI/Abdominal Exam GI & Abdominal Exam: Normal Bowel Sounds, Soft. absent: Distended, Tenderness - Neurological Exam Neurological exam: Alert, Oriented x3 - Psychiatric Exam Psychiatric exam: Normal Affect, Normal Mood - Skin Skin Exam: Dry, Intact, Normal Color, Warm Discharge Plan - Discharge Medications Prescriptions: Azithromycin [Zithromax] 500 mg PO DAILY #5 tablet RX: Fluticasone/Salmeterol 250/50 [Advair Diskus 250/50] 1 puff IH Q12 #1 puff Methylprednisolone [Medrol Dose Pack (21 tabs)] 4 mg PO ASDIR #21 mg - Follow Up Plan Condition: FAIR Disposition: HOME/ ROUTINE Patient education suggested?: Yes Instructions: Chronic Obstructive Pulmonary Disease (COPD), Including Emphysema, Exacerbation of COPD (DC) Additional Instructions: F/U with Dr. Torres on outpatient basis <Lawrence Quintero - Last Filed: 03/18/18 15:18> Provider - Provider Date of Admission: 03/17/18 15:33 Attending physician: Lawrence Quintero MD Hospital Course - Lab Results Lab Results: Micro Results 03/17/18 14:25 Blood-Venous Blood Culture - Preliminary NO GROWTH AFTER 24 HOURS 03/17/18 14:20 Blood-Venous Blood Culture - Preliminary NO GROWTH AFTER 24 HOURS Most Recent Lab Values WBC 6.7 K/uL (4.8-10.8) D 03/18/18 04:45 RBC 4.52 Mil/uL (4.40-5.90) 03/18/18 04:45 Hgb 13.7 g/dL (12.0-18.0) 03/18/18 04:45 Hct 41.2 % (35.0-51.0) 03/18/18 04:45 MCV 91.3 fl (80.0-94.0) D 03/18/18 04:45 MCH 30.3 pg (27.0-31.0) 03/18/18 04:45 MCHC 33.3 g/dL (33.0-37.0) 03/18/18 04:45 RDW 15.7 % (11.5-14.5) H 03/18/18 04:45 Plt Count 251 K/uL (130-400) 03/18/18 04:45 MPV 7.7 fl (7.2-11.7) 03/17/18 14:20 Neut % (Auto) 89.6 % (50.0-75.0) H 03/17/18 14:20 Lymph % (Auto) 5.6 % (20.0-40.0) L 03/17/18 14:20 [place] % (Auto) 4.3 % (0.0-10.0) 03/17/18 14:20 Eos % (Auto) 0.1 % (0.0-4.0) 03/17/18 14:20 Baso % (Auto) 0.4 % (0.0-2.0) 03/17/18 14:20 Neut # (Auto) 13.1 K/uL (1.8-7.0) H 03/17/18 14:20 Lymph # (Auto) 0.8 K/uL (1.0-4.3) L 03/17/18 14:20 [place] # (Auto) 0.6 K/uL (0.0-0.8) 03/17/18 14:20 Eos # (Auto) 0.0 K/uL (0.0-0.7) 03/17/18 14:20 Baso # (Auto) 0.1 K/uL (0.0-0.2) 03/17/18 14:20 Neutrophils % (Manual) 90 % (42-75) H 03/17/18 14:20 Band Neutrophils % 1 % (0-2) 03/17/18 14:20 Lymphocytes % (Manual) 4 % (20-50) L 03/17/18 14:20 Reactive Lymphs % 1 % (0-0) H 03/17/18 14:20 Monocytes % (Manual) 3 % (0-10) 03/17/18 14:20 Basophils % (Manual) 1 % (0-2) 03/17/18 14:20 Platelet Estimate Normal (NORMAL) 03/17/18 14:20 Anisocytosis (manual) Slight 03/17/18 14:20 PT 12.7 Seconds (9.8-13.1) 03/17/18 14:20 INR 1.1 03/17/18 14:20 APTT 35.0 Seconds (25.6-37.1) 03/17/18 14:20 pO2 42 mm/Hg (30-55) 03/17/18 16:52 VBG pH 7.34 (7.32-7.43) 03/17/18 16:52 VBG pCO2 62 mmHg (40-60) H 03/17/18 16:52 VBG HCO3 28.7 mmol/L 03/17/18 16:52 VBG Total CO2 35.3 mmol/L (22-28) H 03/17/18 16:52 VBG O2 Sat (Calc) 76.3 % (40-65) H 03/17/18 16:52 VBG Base Excess 5.6 mmol/L (0.0-2.0) H 03/17/18 16:52 VBG Potassium 4.1 mmol/L (3.6-5.2) 03/17/18 16:52 Sodium 135.0 mmol/L (132-148) 03/17/18 16:52 Chloride 98.0 mmol/L (98-107) 03/17/18 16:52 Glucose 198 mg/dL (75-110) H 03/17/18 16:52 Lactate 1.6 mmol/L (0.7-2.1) 03/17/18 16:52 FiO2 28.0 % 03/17/18 16:52 Blood Gas Comments Vbg 03/17/18 14:09 Crit Value Called To Dr. sincere salazar m.d. 03/17/18 14:09 Crit Value Called By Xin 03/17/18 14:09 Crit Value Read Back Y 03/17/18 14:09 Blood Gas Notified Time 1432 03/17/18 14:09 Sodium 139 mmol/l (132-148) 03/18/18 04:45 Potassium 4.3 MMOL/L (3.6-5.0) 03/18/18 04:45 Chloride 99 mmol/L (98-107) 03/18/18 04:45 Carbon Dioxide 35 mmol/L (22-30) H 03/18/18 04:45 Anion Gap 9 (10-20) L 03/18/18 04:45 BUN 15 mg/dl (9-20) 03/18/18 04:45 Creatinine 0.5 mg/dl (0.8-1.5) L 03/18/18 04:45 Est GFR ( Amer) > 60 03/18/18 04:45 Est GFR (Non-Af Amer) > 60 03/18/18 04:45 Random Glucose 160 mg/dL (75-110) H 03/18/18 04:45 Calcium 8.8 mg/dL (8.4-10.2) 03/18/18 04:45 Phosphorus 3.5 mg/dl (2.5-4.5) 03/17/18 14:37 Magnesium 1.7 MG/DL (1.6-2.3) 03/17/18 14:37 Total Bilirubin 0.9 mg/dl (0.2-1.3) 03/17/18 14:20 AST 25 U/L (17-59) 03/17/18 14:20 ALT 32 U/L (21-72) 03/17/18 14:20 Alkaline Phosphatase 93 U/L (38-126) 03/17/18 14:20 Troponin I < 0.0120 ng/mL (0.00-0.120) 03/17/18 14:20 NT-Pro-B Natriuret Pep 447 pg/ml (0-900) 03/17/18 14:20 Total Protein 8.0 G/DL (6.3-8.2) 03/17/18 14:20 Albumin 4.1 g/dL (3.5-5.0) 03/17/18 14:20 Globulin 3.9 gm/dL (2.2-3.9) 03/17/18 14:20 Albumin/Globulin Ratio 1.0 (1.0-2.1) 03/17/18 14:20 Venous Blood Potassium 4.1 mmol/L (3.6-5.2) 03/17/18 16:52 Urine Color Yellow (YELLOW) 03/17/18 14:20 Urine Clarity Clear (Clear) 03/17/18 14:20 Urine pH 6.0 (5.0-8.0) 03/17/18 14:20 Ur Specific [place] 1.009 (1.003-1.030) 03/17/18 14:20 Urine Protein Negative mg/dL (NEGATIVE) 03/17/18 14:20 Urine Glucose (UA) Neg mg/dL (NEGATIVE) 03/17/18 14:20 Urine Ketones Negative mg/dL (NEGATIVE) 03/17/18 14:20 Urine Blood Negative (NEGATIVE) 03/17/18 14:20 Urine Nitrate Negative (NEGATIVE) 03/17/18 14:20 Urine Bilirubin Negative (NEGATIVE) 03/17/18 14:20 Urine Urobilinogen 0.2-1.0 mg/dL (0.2-1.0) 03/17/18 14:20 Ur Leukocyte Esterase Neg [place]/uL (Negative) 03/17/18 14:20 Urine RBC (Auto) < 1 /hpf (0-3) 03/17/18 14:20 Urine Microscopic WBC < 1 /hpf (0-5) 03/17/18 14:20 Influenza Typ A,B (EIA) Negative for flu a/b (NEGATIVE) 03/17/18 14:20 Attending/Attestation - Attestation I have personally seen and examined this patient.: Yes I have fully participated in the care of the patient.: Yes I have reviewed all pertinent clinical information, including history, physical exam and plan: Yes Notes (Text): 03/18/18 15:17 Patient seen and examined with resident. Case discussed and agreed with assessment. Patient discharged in stable condition.
--- NOTE | 2018-03-18 19:48 | CARD ---
APPROVED REPORT Date of service: 03/17/2018 EKG Measurement Heart [id number] <Conclusion> Sinus tachycardia Possible Left atrial enlargement Nonspecific ST abnormality Abnormal ECG
== END 2018-03-18 14:45 | disposition home or self-care (01) ==
LOC: H.ER 13:07 → H.ERHOLD 15:33 → INTOOBSV 15:33 → H.TEL 18:37
DX: J44.1 Chronic obstructive pulmonary disease with (acute) exacerbation (principal); J47.9 Bronchiectasis, uncomplicated; Z86.11 Personal history of tuberculosis; Z86.711 Personal history of pulmonary embolism; Z86.73 Personal history of transient ischemic attack (TIA), and cerebral infarction without residual deficits; Z87.891 Personal history of nicotine dependence; Z90.49 Acquired absence of other specified parts of digestive tract; Z99.81 Dependence on supplemental oxygen; I11.0 Hypertensive heart disease with heart failure; I25.2 Old myocardial infarction; I27.20 Pulmonary hypertension, unspecified; I50.9 Heart failure, unspecified
CPT/HCPCS: 36415; 71045; 80048; 80053; 81003; 82803; 83735; 83880; 84100; 84484; 85025; 85027; 85610; 85730; 87040; 87804; 93005; 94660; 96374; 99285; G0378; J0456; J0696; J1650; J1940; J2930

== ENCOUNTER 2018-05-16 11:20 | Inpatient (IN) | payer BC, MEDICARE ==
[2018-05-16 11:20] VITALS: BMI 26.0
[2018-05-16] MEDS ORDERED: Albuterol-Ipratrop 3 mg / 0.5 (3 ml) UD ONE (11:39)
[2018-05-16] MEDS ORDERED: Albuterol-Ipratrop 3 mg / 0.5 (3 ml) UD INH STA (11:42)
--- NOTE | 2018-05-16 12:03 | ED PDOC ---
HPI: SOB/CHF/COPD Time Seen by Provider: 05/16/18 11:20 Chief Complaint (Nursing): Shortness Of Breath Chief Complaint (Provider): Shortness of Breath History Per: Patient History/Exam Limitations: no limitations Onset/Duration Of Symptoms: Days (x2) Current Symptoms Are (Timing): Still Present Associated Symptoms: denies: Fever, Chest Pain Additional Complaint(s): 72 year old male with a past medical history of Asthma, CVA, and COPD with home oxygen who is presenting to the ED for evaluation of shortness of breath onset 2 days ago. Patient states that he cant breathe but denies any fevers, cough, or chest pain. He offers no other medical complaints at this time. PMD: Dr. Montgomery Past Medical History Reviewed: Historical Data, Nursing Documentation, Vital Signs Vital Signs: Last Vital Signs Temp 99.6 F 05/16/18 11:48 Pulse 125 H 05/16/18 11:34 Resp 26 H 05/16/18 11:34 BP 144/61 05/16/18 11:34 Pulse Ox 65 L 05/16/18 11:34 - Medical History PMH: Asthma, COPD, Pneumonia Denies: HIV, Chronic Kidney Disease - Surgical History Surgical History: No Surg Hx - Family History Family History: States: Hypertension - Social History Current smoker - smoking cessation education provided: No Alcohol: None Drugs: Denies - Home Medications Home Medications: Ambulatory Orders Medication Instructions Recorded Budesonide/Formoterol Fumarate 2 puff IH Q12 05/16/18 [Symbicort 160-4.5 Mcg Inhaler] RX: Albuterol/Ipratropium [Duoneb 3 ml INH Q8 PRN 05/16/18 3 mg/0.5 mg (3 ml) UD] - Allergies Allergies/Adverse Reactions: Allergies Allergy/AdvReac Type Severity Reaction Status Date / Time No Known Allergies Allergy Verified 05/16/18 11:56 Review of Systems ROS Statement: Except As Marked, All Systems Reviewed And Found Negative Constitutional: Negative for: Fever Cardiovascular: Negative for: Chest Pain Respiratory: Positive for: Shortness of Breath. Negative for: Cough Physical Exam - Reviewed Nursing Documentation Reviewed: Yes Vital Signs Reviewed: Yes - Physical Exam Appears: Positive for: Non-toxic, No Acute Distress Head Exam: Positive for: ATRAUMATIC, NORMAL INSPECTION, NORMOCEPHALIC Skin: Positive for: Normal Color, Warm, DRY Eye Exam: Positive for: EOMI, Normal appearance, PERRL ENT: Positive for: Normal ENT Inspection Neck: Positive for: Normal, Painless ROM Cardiovascular/Chest: Positive for: Regular Rate, Rhythm. Negative for: Murmur Respiratory: Positive for: Decreased Breath Sounds, Accessory Muscle Use, Rhonchi (diffuse ), Other (tachypnic ) Gastrointestinal/Abdominal: Positive for: Normal Exam, Soft. Negative for: Tenderness Extremity: Positive for: Normal ROM. Negative for: Deformity, Swelling Neurologic/Psych: Positive for: Alert, Oriented. Negative for: Motor/Sensory Deficits - Laboratory Results Result Diagrams: 05/16/18 12:16 05/16/18 12:16 - ECG O2 Sat by Pulse Oximetry: 65 (RA) Medical Decision Making Medical Decision Making: Time: 11:42 Plan: shortness of breath, rule out COPD, CHF, pneumonia --EKG --CMP --Troponin --CBC --Duoneb 3 ml INH --Solu-Medrol 125 mg IVP --Peak Flow Pre/Post Tx 13:20 Patient has a fever in the ED. 1556 CXR FINDINGS: LUNGS: Persistent extensive opacity in the right lung with likely bronchiectasis in the upper lobe. Extensive right upper lobe pleural thickening. Abnormal opacity at right base is increased compared to prior examination. Possible pneumonia. PLEURA: Right apical pleural thickening unchanged. Possible small right pleural effusion versus chronic pleural thickening. No left pleural effusion. No pneumothorax. CARDIOVASCULAR: No aortic atherosclerotic calcification present. There shift of the heart mediastinum towards the right side. This is unchanged. Consistent with right-sided volume loss. No pulmonary vascular congestion. OSSEOUS STRUCTURES: No significant abnormalities. VISUALIZED UPPER ABDOMEN: Normal. OTHER FINDINGS: None. IMPRESSION: Increasing opacity at right base may reflect developing pneumonia. Persistent extensive right upper lobe bronchiectasis. Right upper hemithorax pleural thickening. Left-sided bronchiectasis seen on CT examination of 01/25/2018 cannot be appreciated on the basis of this examination. 16:43 pt to be treated for pneumonia with iv abx. tylenol for fever Patient will be admitted to Dr. Montgomery pts primary for treatment of early pneumonia. Dr montgomery agree w plan. ------ Scribe Attestation: Documented by Larissa Galaviz, acting as a scribe for Sonja Beard MD. Provider Scribe Attestation: All medical record entries made by the Scribe were at my direction and personally dictated by me. I have reviewed the chart and agree that the record accurately reflects my personal performance of the history, physical exam, medical decision making, and the department course for this patient. I have also personally directed, reviewed, and agree with the discharge instructions and disposition. Disposition - Clinical Impression Clinical Impression: COPD exacerbation, PNA (pneumonia) - Patient ED Disposition Is Patient to be Admitted: Yes - Disposition Disposition Time: 16:45 Condition: STABLE
[2018-05-16 12:22] LABS: BASO # 0.1 K/uL (0.0-0.2); BASO % 0.6 % (0.0-2.0); EOS % 0.1 % (0.0-4.0); HEMOGLOBIN 13.6 g/dL (12.0-18.0); LYMPH # 0.2 K/uL (1.0-4.3); LYMPH % 1.8 % (20.0-40.0); MEAN CELL VOLUME 90.1 fl (80.0-94.0); MEAN CORPUSCULAR HEMOGLOBIN 29.8 pg (27.0-31.0); MEAN CORPUSCULAR HGB CONC 33.1 g/dL (33.0-37.0); MEAN PLATELET VOLUME 7.9 fl (7.2-11.7); MONO # 0.7 K/uL (0.0-0.8); MONO % 4.8 % (0.0-10.0); NEUT # 13.1 K/uL (1.8-7.0); NEUT % 92.7 % (50.0-75.0); NRBC % 0.1 % (0.0-0.0); PLATELET COUNT 300 K/uL (130-400); RBC 4.58 Mil/uL (4.40-5.90); RED CELL DISTRIBUTION WIDTH 15.4 % (11.5-14.5); WHITE BLOOD COUNT 14.1 K/uL (4.8-10.8)
[2018-05-16 12:35] LABS: ALB/GLOB RATIO 0.8 (1.0-2.1); ALBUMIN 3.6 g/dL (3.5-5.0); ALT/SGPT 17 U/L (21-72); AST/SGOT 32 U/L (17-59); BLOOD UREA NITROGEN 13 mg/dl (9-20); CALCIUM 9.2 mg/dL (8.4-10.2); GFR NON-AFRICAN AMERICAN > 60
[2018-05-16 13:07] LABS: BANDS 2 % (0-2); LYMPHOCYTE 2 % (20-50); MONOCYTE 4 % (0-10); NEUTROPHIL 92 % (42-75); TOTAL CELLS COUNTED 100
[2018-05-16 13:08] LABS: PLATELET ESTIMATE NORMAL (NORMAL)
[2018-05-16] MEDS ORDERED: Sodium Chloride 0.9% 200 ML IV STA (13:16)
[2018-05-16 13:43] LABS: VENOUS BLOOD GAS BASE EXCESS 6.5 mmol/L (0.0-2.0); VENOUS BLOOD GAS PCO2 62 mmHg (40-60); VENOUS BLOOD GAS PO2 36 mm/Hg (30-55); VENOUS BLOOD PH 7.35 (7.32-7.43)
--- NOTE | 2018-05-16 15:02 | CARD ---
APPROVED REPORT Date of service: 05/16/2018 EKG Measurement Heart [id number] <Conclusion> Sinus tachycardia Left atrial enlargement Abnormal ECG
--- NOTE | 2018-05-16 16:00 | RAD ---
Date of service: 05/16/2018 HISTORY: fever sob COMPARISON: 03/17/2018 FINDINGS: LUNGS: Persistent extensive opacity in the right lung with likely bronchiectasis in the upper lobe. Extensive right upper lobe pleural thickening. Abnormal opacity at right base is increased compared to prior examination. Possible pneumonia. PLEURA: Right apical pleural thickening unchanged. Possible small right pleural effusion versus chronic pleural thickening. No left pleural effusion. No pneumothorax. CARDIOVASCULAR: No aortic atherosclerotic calcification present. There shift of the heart mediastinum towards the right side. This is unchanged. Consistent with right-sided volume loss. No pulmonary vascular congestion. OSSEOUS STRUCTURES: No significant abnormalities. VISUALIZED UPPER ABDOMEN: Normal. OTHER FINDINGS: None. IMPRESSION: Increasing opacity at right base may reflect developing pneumonia. Persistent extensive right upper lobe bronchiectasis. Right upper hemithorax pleural thickening. Left-sided bronchiectasis seen on CT examination of 01/25/2018 cannot be appreciated on the basis of this examination.
[2018-05-16] MEDS ORDERED: Azithromycin 500 MG in Sodium Chloride 0.9% 250 ML IVPB STA (16:37)
[2018-05-16] MEDS ORDERED: Sodium Chloride 0.9% 1,000 ML IV STA (16:38)
[2018-05-16] MEDS ORDERED: cefTRIAXone (Rocephin) 1 gm Inj ONE (17:05)
[2018-05-16 17:34] LABS: VENOUS BLOOD GAS BASE EXCESS 4.1 mmol/L (0.0-2.0); VENOUS BLOOD GAS PCO2 75 mmHg (40-60); VENOUS BLOOD GAS PO2 30 mm/Hg (30-55); VENOUS BLOOD PH 7.26 (7.32-7.43)
[2018-05-16] MEDS ORDERED: Albuterol-Ipratrop 3 mg / 0.5 (3 ml) UD INH PRN (20:25)
[2018-05-16] MEDS ORDERED: Sodium Chloride 3% for Inhalation 4 ML VIAL.NEB IH PRN (20:25)
[2018-05-16] MEDS: Piperacillin/Tazobact 3.375 GM in Sodium Chloride 0.9% 100 ML IVPB SCH (21:59)
[2018-05-16] MEDS: MethylPREDNISolone 40 mg Vial IVP SCH (22:05)
[2018-05-16] MEDS: Albuterol-Ipratrop 3 mg / 0.5 (3 ml) UD INH SCH (23:52)
[2018-05-17] MEDS: Piperacillin/Tazobact 3.375 GM in Sodium Chloride 0.9% 100 ML IVPB SCH ×4 (03:37→21:08)
[2018-05-17] MEDS: MethylPREDNISolone 40 mg Vial IVP SCH ×4 (03:39→21:16)
[2018-05-17 04:13] LABS: SQUAMOUS EPITHIAL < 1 /hpf (0-5); URINE BILIRUBIN NEGATIVE (NEGATIVE); URINE BLOOD NEGATIVE (NEGATIVE); URINE CLARITY CLEAR (Clear); URINE COLOR YELLOW (YELLOW); URINE GLUCOSE (UA) 50 mg/dL (NEGATIVE); URINE LEUKOCYTE ESTERASE NEG Leu/uL (Negative); URINE PROTEIN NEGATIVE (NEGATIVE); URINE UROBILINOGEN 0.2-1.0 mg/dL (0.2-1.0)
[2018-05-17] MEDS: Albuterol-Ipratrop 3 mg / 0.5 (3 ml) UD INH SCH ×6 (05:00→23:46)
[2018-05-17 05:26] LABS: HEMOGLOBIN 13.3 g/dL (12.0-18.0); MEAN CELL VOLUME 91.7 fl (80.0-94.0); MEAN CORPUSCULAR HEMOGLOBIN 29.8 pg (27.0-31.0); MEAN CORPUSCULAR HGB CONC 32.5 g/dL (33.0-37.0); RBC 4.47 Mil/uL (4.40-5.90); RED CELL DISTRIBUTION WIDTH 15.3 % (11.5-14.5); WHITE BLOOD COUNT 9.8 K/uL (4.8-10.8)
[2018-05-17 05:28] LABS: ABG ALLEN TEST YES; ARTERIAL BLOOD GAS HCO3 25.5 mmol/L (21-28); ARTERIAL BLOOD GAS HEMOGLOBIN 13.8 g/dL (11.7-17.4); ARTERIAL BLOOD GAS O2 SAT 100.1 % (95-98); ARTERIAL BLOOD GAS PCO2 64 mm/Hg (35-45); ARTERIAL BLOOD GAS PH 7.27 (7.35-7.45); ARTERIAL BLOOD GAS PO2 155 mm/Hg (80-100); ARTERIAL BLOOD GAS TCO2 31.4 mmol/L (22-28)
[2018-05-17 05:34] LABS: ALBUMIN 3.5 g/dL (3.5-5.0); ALT/SGPT 23 U/L (21-72); AST/SGOT 32 U/L (17-59); BLOOD UREA NITROGEN 17 mg/dl (9-20); CALCIUM 8.7 mg/dL (8.4-10.2); GFR NON-AFRICAN AMERICAN > 60; HDL CHOLESTEROL 42 MG/DL (30-70)
[2018-05-17 05:44] LABS: LDL CHOLESTEROL 52 mg/dL (0-129)
[2018-05-17] MEDS: Promethazine/Cod 6.25mg-10mg/5ml Syr UD PO PRN ×2 (08:54→13:07)
[2018-05-17] MEDS: Enoxaparin 40 mg Syringe SC SCH (12:47)
--- NOTE | 2018-05-17 14:09 | CT ---
Date of service: 05/17/2018 PROCEDURE: CT Chest without contrast HISTORY: PNA COMPARISON: 11/30/2017, 01/22/2018, 01/25/[address] scans of the thorax. TECHNIQUE: Contiguous axial images were obtained through the chest without intravenous contrast enhancement. Sagittal and coronal reconstructions were performed. Radiation dose: Total exam DLP = 501.19 mGy-cm. This CT exam was performed using one or more of the following dose reduction techniques: Automated exposure control, adjustment of the mA and/or kV according to patient size, and/or use of iterative reconstruction technique. FINDINGS: LUNGS: Cystic bronchiectatic changes identified bilaterally. These are stable. No suspicious pulmonary nodules, masses or infiltrates. Volume loss right hemithorax again identified. Commensurate hyperinflation of the left lung noted. MEDIASTINUM: Unremarkable thoracic aorta. No aneurysm. Normal sized heart. Dilated main pulmonary artery consistent with pulmonary arterial hypertension. Mildly enlarged mediastinal lymph nodes again identified, the largest 1.3 x 0.8 cm. No aortic atherosclerotic calcification. PLEURA: No pleural fluid. No pneumothorax. BONES: No fracture. No destructive lesion. UPPER ABDOMEN: Grossly unremarkable. OTHER FINDINGS: None. IMPRESSION: Stable, severe cystic bronchiectasis bilaterally. No new/superimposed pulmonary infiltrates.
--- NOTE | 2018-05-17 18:02 | CP.PCM.HP ---
History of Present Illness - History of Present Illness History of Present Illness: CC: SOB. 72 y/o M, PMHx includes: COPD, Pulmonary HTN, TB in 1963, PE, NSTEMI. Pt came to [facility] on 05/16/18, to be evaluated for moderate SOB x 2 days [employer], associated to intermittent productive cough, with yellowish phlegms, non bloody. Pt using handheld inhalers, nebulizer at home with no relief. Worsening symptoms: SOB at rest. Mild distress on arrival 2nd to difficulty breathing. Aggravated factor: Exercise. Pt denied: Fevr, chills, n/v/d, abdominal pain, urinary symptoms, CP, syncope, sick contact. recent travel out of [place]. EKG: Sinus tachycardia, L atrial enlargement. CXR: Increased opacity R base, may reflect developing PNA. Persistent extensive RUL Bronchiectasis, R upper hemithorax pleural effusion Present on Admission - Present on Admission Any Indicators Present on Admission: Yes History of DVT/PE: Yes Review of Systems - Constitutional Constitutional: Other (negative) - EENT Eyes: Requires Corrective Lenses Ears: Other (negative) Nose/Mouth/Throat: Other (negative) - Cardiovascular Cardiovascular: Orthopnea. absent: Chest Pain - Respiratory Respiratory: Cough, Dyspnea, Change in Mucous Color - Gastrointestinal Gastrointestinal: Other (negative) - Genitourinary Genitourinary: Other (negative) - Musculoskeletal Musculoskeletal: Other (negative) - Integumentary Integumentary: Other (negative) - Neurological Neurological: Other (negative) - Psychiatric Psychiatric: Other (negative) - Endocrine Endocrine: Other (negtaive) - Hematologic/Lymphatic Hematologic: Other (negtaive) Past Patient History - Infectious Disease Hx of Infectious Diseases: None - Past Medical History & Family History Past Medical History?: Yes Pertinent Family History: Unknown - Past Social History Smoking Status: Former Smoker Alcohol: None Drugs: Denies Home Situation {Lives}: Alone - CARDIAC Hx Cardiac Disorders: Yes (Hx NSTEMI) Hx Heart Attack: Yes (NSTEMI) - PULMONARY Hx Respiratory Disorders: Yes Hx Asthma: Yes Hx Chronic Obstructive Pulmonary Disease (COPD): Yes Hx Pneumonia: Yes - NEUROLOGICAL Hx Neurological Disorder: Yes HX Cerebrovascular Accident: Yes - HEENT Hx HEENT Problems: No - RENAL Hx Chronic Kidney Disease: No - ENDOCRINE/METABOLIC Hx Endocrine Disorders: No - HEMATOLOGICAL/ONCOLOGICAL Hx Blood Disorders: No Hx Human Immunodeficiency Virus (HIV): No - INTEGUMENTARY Hx Dermatological Problems: No - MUSCULOSKELETAL/RHEUMATOLOGICAL Hx Musculoskeletal Disorders: Yes Hx Falls: No - GASTROINTESTINAL Hx Gastrointestinal Disorders: No - GENITOURINARY/GYNECOLOGICAL Hx Genitourinary Disorders: No Hx Urinary Tract Infection: No - PSYCHIATRIC Hx Psychophysiologic Disorder: No Hx Substance Use: No - SURGICAL HISTORY Hx Surgeries: No - ANESTHESIA Hx Anesthesia: No Hx Anesthesia Reactions: No Meds Allergies/Adverse Reactions: Allergies Allergy/AdvReac Type Severity Reaction Status Date / Time No Known Allergies Allergy Verified 05/16/18 11:56 Physical Exam - Constitutional Appears: No Acute Distress - Head Exam Head Exam: NORMAL INSPECTION - Eye Exam Eye Exam: PERRL - ENT Exam Additional comments: On BIPAP mask, FIO 2 50%. - Neck Exam Neck exam: Positive for: Normal Inspection - Respiratory Exam Respiratory Exam: Decreased Breath Sounds (at bases), Rhonchi, Wheezes - Cardiovascular Exam Cardiovascular Exam: REGULAR RHYTHM - GI/Abdominal Exam GI & Abdominal Exam: Normal Bowel Sounds, Soft - Extremities Exam Extremities exam: Positive for: normal inspection - Back Exam Back exam: NORMAL INSPECTION - Neurological Exam Neurological exam: Alert, Oriented x3 Additional comments: No motor/sensory deficit. - Psychiatric Exam Psychiatric exam: Normal Mood - Skin Skin Exam: Warm Results - Vital Signs Recent Vital Signs: Last Vital Signs Temp 97.3 F L 05/17/18 16:24 Pulse 87 05/17/18 16:24 Resp 18 05/17/18 16:24 BP 100/61 05/17/18 16:24 Pulse Ox 98 05/17/18 16:24 reviewed Aissatou - Labs Result Diagrams: 05/18/18 04:50 05/18/18 04:50 Labs: Laboratory Results - last 24 hr 05/17/18 05/17/18 05/17/18 03:00 04:55 04:55 WBC 9.8 RBC 4.47 Hgb 13.3 Hct 41.0 MCV 91.7 MCH 29.8 MCHC 32.5 L RDW 15.3 H Plt Count 272 pCO2 pO2 HCO3 ABG pH ABG Total CO2 ABG O2 Saturation ABG O2 Content ABG Base Excess ABG Hemoglobin ABG Carboxyhemoglobin POC ABG HHb (Measured) ABG Methemoglobin ABG O2 Capacity Danny Test A-a O2 Difference Hgb O2 Saturation Vent Mode Mechanical Rate FiO2 Inspiratory BiPAP Expiratory BiPAP Sodium 135 Potassium 4.6 Chloride 96 L Carbon Dioxide 32 H Anion Gap 12 BUN 17 Creatinine 0.5 L Est GFR ( Amer) > 60 Est GFR (Non-Af Amer) > 60 Random Glucose 157 H Calcium 8.7 Total Bilirubin 0.3 AST 32 ALT 23 Alkaline Phosphatase 67 Total Protein 7.2 Albumin 3.5 Globulin 3.7 Albumin/Globulin Ratio 1.0 Triglycerides 41 Cholesterol 117 LDL Cholesterol Direct 52 HDL Cholesterol 42 Thyroxine (T4) 4.96 L TSH 3rd Generation 0.23 L Urine Color Yellow Urine Clarity Clear Urine pH 6.0 Ur Specific [place] 1.031 H Urine Protein Negative Urine Glucose (UA) 50 Urine Ketones Trace Urine Blood Negative Urine Nitrate Negative Urine Bilirubin Negative Urine Urobilinogen 0.2-1.0 Ur Leukocyte Esterase Neg Urine RBC (Auto) 1 Urine Microscopic WBC 1 Ur Squamous Epith Cells < 1 05/17/18 04:58 WBC RBC Hgb Hct MCV MCH MCHC RDW Plt Count pCO2 64 H pO2 155 H HCO3 25.5 ABG pH 7.27 L ABG Total CO2 31.4 H ABG O2 Saturation 100.1 H ABG O2 Content 19.0 ABG Base Excess 0.8 ABG Hemoglobin 13.8 ABG Carboxyhemoglobin 2.2 H POC ABG HHb (Measured) -0.1 L ABG Methemoglobin 1.2 ABG O2 Capacity 19.0 Danny Test Yes A-a O2 Difference 122.0 Hgb O2 Saturation 96.7 Vent Mode Bipap Mechanical Rate 18 FiO2 50.0 Inspiratory BiPAP 14 Expiratory BiPAP 6 Sodium Potassium Chloride Carbon Dioxide Anion Gap BUN Creatinine Est GFR ( Amer) Est GFR (Non-Af Amer) Random Glucose Calcium Total Bilirubin AST ALT Alkaline Phosphatase Total Protein Albumin Globulin Albumin/Globulin Ratio Triglycerides Cholesterol LDL Cholesterol Direct HDL Cholesterol Thyroxine (T4) TSH 3rd Generation Urine Color Urine Clarity Urine pH Ur Specific [place] Urine Protein Urine Glucose (UA) Urine Ketones Urine Blood Urine Nitrate Urine Bilirubin Urine Urobilinogen Ur Leukocyte Esterase Urine RBC (Auto) Urine Microscopic WBC Ur Squamous Epith Cells reviewed J.P. - EKG Data EKG comments: reviewed J.P. - Imaging and Cardiology Chest x-ray Status: Report reviewed by me (J.P.) Assessment & Plan (1) COPD exacerbation Status: Acute Priority: High (2) Bronchiectasis Status: Acute Priority: High (3) Hx of non-ST elevation myocardial infarction (NSTEMI) Status: Chronic Priority: Medium (4) Pulmonary HTN Status: Chronic Priority: Medium (5) Hx pulmonary embolism Status: Chronic (6) History of TB (tuberculosis) Status: Chronic - Assessment and Plan (Free Text) Plan: Continue BIPAP, F/U Blood C-S, f/u Chest CT, continue Vanco, Zosyn, Duoneb, Phenergan with Co, Solu-Medrol, Lovenox and rest of Tx. - Date & Time Date: 05/17/18 Time: 11:20
[2018-05-18] MEDS: Promethazine/Cod 6.25mg-10mg/5ml Syr UD PO PRN ×3 (00:03→23:03)
[2018-05-18] MEDS ORDERED: Sodium Chloride 3% for Inhalation 4 ML VIAL.NEB IH PRN (02:33)
[2018-05-18] MEDS: Piperacillin/Tazobact 3.375 GM in Sodium Chloride 0.9% 100 ML IVPB SCH ×4 (03:20→21:06)
[2018-05-18] MEDS: MethylPREDNISolone 40 mg Vial IVP SCH ×3 (03:25→18:02)
[2018-05-18] MEDS: Albuterol-Ipratrop 3 mg / 0.5 (3 ml) UD INH SCH ×6 (04:30→23:40)
[2018-05-18 05:31] LABS: HEMOGLOBIN 12.8 g/dL (12.0-18.0); MEAN CELL VOLUME 93.1 fl (80.0-94.0); MEAN CORPUSCULAR HEMOGLOBIN 29.5 pg (27.0-31.0); MEAN CORPUSCULAR HGB CONC 31.7 g/dL (33.0-37.0); RBC 4.36 Mil/uL (4.40-5.90); RED CELL DISTRIBUTION WIDTH 15.4 % (11.5-14.5); WHITE BLOOD COUNT 12.5 K/uL (4.8-10.8)
[2018-05-18 05:42] LABS: BLOOD UREA NITROGEN 18 mg/dl (9-20); CALCIUM 8.7 mg/dL (8.4-10.2); GFR NON-AFRICAN AMERICAN > 60
[2018-05-18] MEDS: Enoxaparin 40 mg Syringe SC SCH (08:32)
--- NOTE | 2018-05-18 14:50 | CP.PCM.PN ---
Subjective - Date & Time of Evaluation Date of Evaluation: 05/18/18 Time of Evaluation: 11:20 - Subjective Subjective: F/U COPD Exacerbation. Cough and chest congestion improved, no SOB on O2 NC Objective - Vital Signs/Intake and Output Vital Signs (last 24 hours): Temp Pulse Resp BP Pulse Ox 97.1 F L 78 18 105/69 99 05/18/18 11:50 05/18/18 11:50 05/18/18 11:50 05/18/18 11:50 05/18/18 11:50 - Medications Medications: Current Medications Albuterol/Ipratropium (Duoneb 3 Mg/0.5 Mg (3 Ml) Ud) 3 ml INH RQ4 KEIKO Last Admin: 05/18/18 12:10 Dose: 3 ml Enoxaparin Sodium (Lovenox) 40 mg SC DAILY KEIKO; Protocol Last Admin: 05/18/18 08:32 Dose: 40 mg Piperacillin Sod/Tazobactam (Sod 3.375 gm/ Sodium Chloride) 100 mls @ 100 mls/hr IVPB Q6 KEIKO; Protocol Last Admin: 05/18/18 11:54 Dose: 100 mls/hr Vancomycin HCl 1 gm/ Sodium (Chloride) 250 mls @ 166.667 mls/hr IVPB Q12 KEIKO; Protocol Last Admin: 05/18/18 08:34 Dose: 166.667 mls/hr Methylprednisolone (Solu-Medrol) 40 mg IVP Q8 KEIKO Promethazine HCl/Codeine (Phenergan/Codeine Oral Syrup) 5 ml PO Q4H PRN PRN Reason: Cough Last Admin: 05/18/18 00:03 Dose: 5 ml - Labs Labs: 05/18/18 04:50 05/18/18 04:50 - Constitutional Appears: No Acute Distress - Head Exam Head Exam: NORMAL INSPECTION - Eye Exam Eye Exam: PERRL - ENT Exam ENT Exam: Normal Exam - Neck Exam Neck Exam: Normal Inspection - Respiratory Exam Respiratory Exam: Decreased Breath Sounds (at bases), Rhonchi - Cardiovascular Exam Cardiovascular Exam: REGULAR RHYTHM - GI/Abdominal Exam GI & Abdominal Exam: Soft, Normal Bowel Sounds - Extremities Exam Extremities Exam: Normal Inspection - Back Exam Back Exam: NORMAL INSPECTION - Neurological Exam Neurological Exam: Alert, Oriented x3. absent: Motor Sensory Deficit - Psychiatric Exam Psychiatric exam: Normal Mood - Skin Skin Exam: Warm Assessment and Plan (1) COPD exacerbation Status: Acute (2) Bronchiectasis Status: Acute (3) Hx of non-ST elevation myocardial infarction (NSTEMI) Status: Chronic (4) Pulmonary HTN Status: Chronic (5) Hx pulmonary embolism Status: Chronic (6) History of TB (tuberculosis) Status: Chronic - Assessment and Plan (Free Text) Plan: CT Chest: Chronic changes, Bronchiectasis, no PNA. Continue Vanco, Zosyn, Duoneb and rest of Tx, F/U Sputum C-S.
[2018-05-19] MEDS: MethylPREDNISolone 40 mg Vial IVP SCH ×3 (01:12→17:30)
[2018-05-19] MEDS: Albuterol-Ipratrop 3 mg / 0.5 (3 ml) UD INH SCH ×6 (04:57→23:41)
[2018-05-19] MEDS: Piperacillin/Tazobact 3.375 GM in Sodium Chloride 0.9% 100 ML IVPB SCH ×4 (05:11→21:38)
[2018-05-19] MEDS: Promethazine/Cod 6.25mg-10mg/5ml Syr UD PO PRN (07:25)
[2018-05-19] MEDS: Enoxaparin 40 mg Syringe SC SCH (09:14)
--- NOTE | 2018-05-19 15:49 | CP.PCM.PN ---
Subjective - Date & Time of Evaluation Date of Evaluation: 05/19/18 Time of Evaluation: 16:20 - Subjective Subjective: F/U COPD Exacerbation. Pt awake, no A/D, no SOB on O2. Objective - Vital Signs/Intake and Output Vital Signs (last 24 hours): Temp Pulse Resp BP Pulse Ox 97.6 F 105 H 20 127/67 93 L 05/19/18 13:10 05/19/18 13:10 05/19/18 13:10 05/19/18 13:10 05/19/18 13:10 - Medications Medications: Current Medications Albuterol/Ipratropium (Duoneb 3 Mg/0.5 Mg (3 Ml) Ud) 3 ml INH RQ4 KEIKO Last Admin: 05/19/18 15:04 Dose: 3 ml Enoxaparin Sodium (Lovenox) 40 mg SC DAILY KEIKO; Protocol Last Admin: 05/19/18 09:14 Dose: 40 mg Piperacillin Sod/Tazobactam (Sod 3.375 gm/ Sodium Chloride) 100 mls @ 100 mls/hr IVPB Q6 KEIKO; Protocol Last Admin: 05/19/18 09:13 Dose: 100 mls/hr Vancomycin HCl 1 gm/ Sodium (Chloride) 250 mls @ 166.667 mls/hr IVPB Q12 KEIKO; Protocol Last Admin: 05/19/18 08:05 Dose: 166.667 mls/hr Methylprednisolone (Solu-Medrol) 40 mg IVP Q8 KEIKO Last Admin: 05/19/18 09:14 Dose: 40 mg Promethazine HCl/Codeine (Phenergan/Codeine Oral Syrup) 5 ml PO Q4H PRN PRN Reason: Cough Last Admin: 05/19/18 07:25 Dose: 5 ml - Labs Labs: 05/18/18 04:50 05/18/18 04:50 - Constitutional Appears: No Acute Distress - Head Exam Head Exam: NORMAL INSPECTION - Eye Exam Eye Exam: PERRL - ENT Exam ENT Exam: Normal Exam - Neck Exam Neck Exam: Normal Inspection - Respiratory Exam Respiratory Exam: Decreased Breath Sounds (at bases), Rhonchi - Cardiovascular Exam Cardiovascular Exam: REGULAR RHYTHM - GI/Abdominal Exam GI & Abdominal Exam: Soft, Normal Bowel Sounds - Extremities Exam Extremities Exam: Normal Inspection - Back Exam Back Exam: NORMAL INSPECTION - Neurological Exam Neurological Exam: Alert, Awake, Oriented x3. absent: Motor Sensory Deficit - Psychiatric Exam Psychiatric exam: Normal Mood - Skin Skin Exam: Warm Assessment and Plan (1) COPD exacerbation Status: Acute (2) Bronchiectasis Status: Acute (3) Hx of non-ST elevation myocardial infarction (NSTEMI) Status: Chronic (4) Pulmonary HTN Status: Chronic (5) Hx pulmonary embolism Status: Chronic (6) History of TB (tuberculosis) Status: Chronic - Assessment and Plan (Free Text) Plan: F/U Sputum C-S, continue Vanco, Zosyn, Duoneb and rest of Tx.
[2018-05-19] MEDS ORDERED: Promethazine/Cod 6.25mg-10mg/5ml Syr UD PO PRN (20:33)
[2018-05-19] MEDS: Promethazine/Cod 6.25mg-10mg/5ml Syr UD PO SCH (21:36)
[2018-05-20] MEDS: Promethazine/Cod 6.25mg-10mg/5ml Syr UD PO SCH (00:22)
[2018-05-20] MEDS: MethylPREDNISolone 40 mg Vial IVP SCH ×3 (00:29→20:16)
[2018-05-20] MEDS: Piperacillin/Tazobact 3.375 GM in Sodium Chloride 0.9% 100 ML IVPB SCH ×4 (04:21→21:49)
[2018-05-20] MEDS: Promethazine/Cod 6.25mg-10mg/5ml Syr UD PO PRN ×4 (04:51→20:15)
[2018-05-20] MEDS: Albuterol-Ipratrop 3 mg / 0.5 (3 ml) UD INH SCH ×4 (05:05→15:47)
[2018-05-20] MEDS: Enoxaparin 40 mg Syringe SC SCH (08:14)
--- NOTE | 2018-05-20 14:46 | CP.PCM.PN ---
Subjective - Date & Time of Evaluation Date of Evaluation: 05/20/18 Time of Evaluation: 12:30 - Subjective Subjective: F/U COPD Exacerbation. Productive cough and chest congestion improved Objective - Vital Signs/Intake and Output Vital Signs (last 24 hours): Temp Pulse Resp BP Pulse Ox 97.7 F 92 H 22 129/74 100 05/20/18 12:49 05/20/18 12:49 05/20/18 12:49 05/20/18 12:49 05/20/18 12:49 - Medications Medications: Current Medications Albuterol/Ipratropium (Duoneb 3 Mg/0.5 Mg (3 Ml) Ud) 3 ml INH RQ4 KEIKO Last Admin: 05/20/18 11:35 Dose: 3 ml Piperacillin Sod/Tazobactam (Sod 3.375 gm/ Sodium Chloride) 100 mls @ 100 mls/hr IVPB Q6 KEIKO; Protocol Last Admin: 05/20/18 09:35 Dose: 100 mls/hr Vancomycin HCl 1 gm/ Sodium (Chloride) 250 mls @ 166.667 mls/hr IVPB Q12 KEIKO; Protocol Last Admin: 05/20/18 08:18 Dose: 166.667 mls/hr Methylprednisolone (Solu-Medrol) 40 mg IVP Q12 KEIKO Promethazine HCl/Codeine (Phenergan/Codeine Oral Syrup) 5 ml PO Q4 PRN PRN Reason: Cough Last Admin: 05/20/18 13:52 Dose: 5 ml - Labs Labs: 05/18/18 04:50 05/18/18 04:50 - Constitutional Appears: No Acute Distress - Head Exam Head Exam: NORMAL INSPECTION - Eye Exam Eye Exam: PERRL - ENT Exam ENT Exam: Normal Exam - Neck Exam Neck Exam: Normal Inspection - Respiratory Exam Respiratory Exam: Decreased Breath Sounds (at bases), Rhonchi (scattered b/l) - Cardiovascular Exam Cardiovascular Exam: REGULAR RHYTHM - GI/Abdominal Exam GI & Abdominal Exam: Soft, Normal Bowel Sounds - Extremities Exam Extremities Exam: Normal Inspection - Back Exam Back Exam: NORMAL INSPECTION - Neurological Exam Neurological Exam: Alert, Oriented x3. absent: Motor Sensory Deficit - Psychiatric Exam Psychiatric exam: Normal Mood - Skin Skin Exam: Warm Assessment and Plan (1) COPD exacerbation Status: Acute (2) Bronchiectasis Status: Acute (3) Hx of non-ST elevation myocardial infarction (NSTEMI) Status: Chronic (4) Pulmonary HTN Status: Chronic (5) Hx pulmonary embolism Status: Chronic (6) History of TB (tuberculosis) Status: Chronic - Assessment and Plan (Free Text) Plan: Continue O2 NC, Taper Steroids, continue Zosyn, Vanco, Duoneb
[2018-05-21] MEDS: Albuterol-Ipratrop 3 mg / 0.5 (3 ml) UD INH SCH ×7 (00:29→23:44)
[2018-05-21] MEDS: Piperacillin/Tazobact 3.375 GM in Sodium Chloride 0.9% 100 ML IVPB SCH ×4 (03:18→23:28)
[2018-05-21] MEDS: Promethazine/Cod 6.25mg-10mg/5ml Syr UD PO PRN ×2 (08:54→21:08)
[2018-05-21] MEDS: MethylPREDNISolone 40 mg Vial IVP SCH ×2 (08:54→21:08)
--- NOTE | 2018-05-21 13:01 | CP.PCM.PN ---
Subjective - Date & Time of Evaluation Date of Evaluation: 05/21/18 Time of Evaluation: 11:50 - Subjective Subjective: F/U COPD Exacerbation. Feels better today, less cough, no SOB, no c/o of chest congestion. Objective - Vital Signs/Intake and Output Vital Signs (last 24 hours): Temp Pulse Resp BP Pulse Ox 97.7 F 96 H 22 116/69 95 05/21/18 09:00 05/21/18 09:00 05/21/18 09:00 05/21/18 09:00 05/21/18 09:00 - Medications Medications: Current Medications Albuterol/Ipratropium (Duoneb 3 Mg/0.5 Mg (3 Ml) Ud) 3 ml INH RQ4 KEIKO Last Admin: 05/21/18 11:43 Dose: 3 ml Piperacillin Sod/Tazobactam (Sod 3.375 gm/ Sodium Chloride) 100 mls @ 100 mls/hr IVPB Q6 KEIKO; Protocol Last Admin: 05/21/18 09:50 Dose: 100 mls/hr Vancomycin HCl 1 gm/ Sodium (Chloride) 250 mls @ 166.667 mls/hr IVPB Q12 KEIKO; Protocol Last Admin: 05/21/18 08:44 Dose: 166.667 mls/hr Methylprednisolone (Solu-Medrol) 40 mg IVP Q12 KEIKO Last Admin: 05/21/18 08:54 Dose: 40 mg Promethazine HCl/Codeine (Phenergan/Codeine Oral Syrup) 5 ml PO Q4 PRN PRN Reason: Cough Last Admin: 05/21/18 08:54 Dose: 5 ml - Labs Labs: 05/18/18 04:50 05/18/18 04:50 - Constitutional Appears: No Acute Distress - Head Exam Head Exam: NORMAL INSPECTION - Eye Exam Eye Exam: PERRL - ENT Exam ENT Exam: Normal Exam - Neck Exam Neck Exam: Normal Inspection - Respiratory Exam Respiratory Exam: Decreased Breath Sounds (at bases), Rhonchi (scattered at bases) - Cardiovascular Exam Cardiovascular Exam: REGULAR RHYTHM - GI/Abdominal Exam GI & Abdominal Exam: Soft, Normal Bowel Sounds - Extremities Exam Extremities Exam: Normal Inspection - Back Exam Back Exam: NORMAL INSPECTION - Neurological Exam Neurological Exam: Alert, Awake, Oriented x3. absent: Motor Sensory Deficit - Psychiatric Exam Psychiatric exam: Normal Affect, Normal Mood - Skin Skin Exam: Warm Assessment and Plan (1) COPD exacerbation Status: Acute (2) Bronchiectasis Status: Acute (3) Hx of non-ST elevation myocardial infarction (NSTEMI) Status: Chronic (4) Pulmonary HTN Status: Chronic (5) Hx pulmonary embolism Status: Chronic (6) History of TB (tuberculosis) Status: Chronic - Assessment and Plan (Free Text) Plan: Continue taper steroids and rest of Tx.
[2018-05-22] MEDS: Albuterol-Ipratrop 3 mg / 0.5 (3 ml) UD INH SCH ×4 (03:49→15:32)
[2018-05-22 08:03] VITALS: RESP 18
[2018-05-22] MEDS: MethylPREDNISolone 40 mg Vial IVP SCH (08:47)
[2018-05-22 11:18] LABS: HEMOGLOBIN 13.8 g/dL (12.0-18.0); MEAN CELL VOLUME 90.9 fl (80.0-94.0); MEAN CORPUSCULAR HEMOGLOBIN 29.4 pg (27.0-31.0); MEAN CORPUSCULAR HGB CONC 32.4 g/dL (33.0-37.0); RBC 4.69 Mil/uL (4.40-5.90); RED CELL DISTRIBUTION WIDTH 14.8 % (11.5-14.5); WHITE BLOOD COUNT 11.4 K/uL (4.8-10.8)
[2018-05-22 11:55] LABS: BLOOD UREA NITROGEN 17 mg/dl (9-20); CALCIUM 8.6 mg/dL (8.4-10.2); GFR NON-AFRICAN AMERICAN > 60
[2018-05-22 12:22] VITALS: BP 145/82; PULSE 91; TEMP 98; O2SAT 94
--- NOTE | 2018-05-22 13:15 | CP.PCM.DIS ---
Provider - Provider Date of Admission: 05/16/18 16:39 Attending physician: Ravi Torres MD Consults: 05/20/18 07:20 Social Work Referral Routine Comment: Home 02 Physician Instructions: Reason For Exam: home o2 per Dr. Torres 05/20/18 20:25 Case Management Referral Routine Comment: alone Physician Instructions: Reason For Exam: request [facility] [employer]IST upon discharge as per daughter,lives Reason for Referral: Discharge Planning Diagnosis - Discharge Diagnosis (1) COPD exacerbation Status: Acute Priority: High (2) Bronchiectasis Status: Acute Priority: High (3) Hx of non-ST elevation myocardial infarction (NSTEMI) Status: Chronic Priority: Medium (4) Pulmonary HTN Status: Chronic Priority: Medium (5) Hx pulmonary embolism Status: Chronic (6) History of TB (tuberculosis) Status: Chronic Hospital Course - Lab Results Lab Results: Micro Results 05/16/18 13:30 Blood-Venous Blood Culture - Final NO GROWTH AFTER 5 DAYS 05/16/18 13:30 Blood-Venous Gram Stain - Final TEST NOT PERFORMED 05/16/18 13:00 Blood-Venous Blood Culture - Final NO GROWTH AFTER 5 DAYS 05/16/18 13:00 Blood-Venous Gram Stain - Final TEST NOT PERFORMED 05/18/18 18:00 Sputum Gram Stain - Final 05/18/18 18:00 Sputum Sputum Culture - Final NORMAL ORAL JUSTINE Most Recent Lab Values WBC 11.4 K/uL (4.8-10.8) H 05/22/18 11:04 RBC 4.69 Mil/uL (4.40-5.90) 05/22/18 11:04 Hgb 13.8 g/dL (12.0-18.0) 05/22/18 11:04 Hct 42.6 % (35.0-51.0) 05/22/18 11:04 MCV 90.9 fl (80.0-94.0) D 05/22/18 11:04 MCH 29.4 pg (27.0-31.0) 05/22/18 11:04 MCHC 32.4 g/dL (33.0-37.0) L 05/22/18 11:04 RDW 14.8 % (11.5-14.5) H 05/22/18 11:04 Plt Count 328 K/uL (130-400) 05/22/18 11:04 MPV 7.9 fl (7.2-11.7) 05/16/18 12:16 Neut % (Auto) 92.7 % (50.0-75.0) H 05/16/18 12:16 Lymph % (Auto) 1.8 % (20.0-40.0) L 05/16/18 12:16 Gregg % (Auto) 4.8 % (0.0-10.0) 05/16/18 12:16 Eos % (Auto) 0.1 % (0.0-4.0) 05/16/18 12:16 Baso % (Auto) 0.6 % (0.0-2.0) 05/16/18 12:16 Neut # (Auto) 13.1 K/uL (1.8-7.0) H 05/16/18 12:16 Lymph # (Auto) 0.2 K/uL (1.0-4.3) L 05/16/18 12:16 Gregg # (Auto) 0.7 K/uL (0.0-0.8) 05/16/18 12:16 Eos # (Auto) 0.0 K/uL (0.0-0.7) 05/16/18 12:16 Baso # (Auto) 0.1 K/uL (0.0-0.2) 05/16/18 12:16 Neutrophils % (Manual) 92 % (42-75) H 05/16/18 12:16 Band Neutrophils % 2 % (0-2) 05/16/18 12:16 Lymphocytes % (Manual) 2 % (20-50) L 05/16/18 12:16 Monocytes % (Manual) 4 % (0-10) 05/16/18 12:16 Platelet Estimate Normal (NORMAL) 05/16/18 12:16 RBC Morphology Normal (NORMAL) 05/16/18 12:16 pCO2 64 mm/Hg (35-45) H 05/17/18 04:58 pO2 155 mm/Hg (80-100) H 05/17/18 04:58 HCO3 25.5 mmol/L (21-28) 05/17/18 04:58 ABG pH 7.27 (7.35-7.45) L 05/17/18 04:58 ABG Total CO2 31.4 mmol/L (22-28) H 05/17/18 04:58 ABG O2 Saturation 100.1 % (95-98) H 05/17/18 04:58 ABG O2 Content 19.0 ML/dL (15-23) 05/17/18 04:58 ABG Base Excess 0.8 mmol/L (-2.0-3.0) 05/17/18 04:58 ABG Hemoglobin 13.8 g/dL (11.7-17.4) 05/17/18 04:58 ABG Carboxyhemoglobin 2.2 % (0.5-1.5) H 05/17/18 04:58 POC ABG HHb (Measured) -0.1 % (0.0-5.0) L 05/17/18 04:58 ABG Methemoglobin 1.2 % (0.0-3.0) 05/17/18 04:58 ABG O2 Capacity 19.0 mL/dL (16-24) 05/17/18 04:58 Danny Test Yes 05/17/18 04:58 VBG pH 7.26 (7.32-7.43) L 05/16/18 17:25 VBG pCO2 75 mmHg (40-60) H* 05/16/18 17:25 VBG HCO3 26.7 mmol/L 05/16/18 17:25 VBG Total CO2 36.0 mmol/L (22-28) H 05/16/18 17:25 VBG O2 Sat (Calc) 59.5 % (40-65) 05/16/18 17:25 VBG Base Excess 4.1 mmol/L (0.0-2.0) H 05/16/18 17:25 VBG Potassium 4.5 mmol/L (3.6-5.2) 05/16/18 17:25 A-a O2 Difference 122.0 mm/Hg 05/17/18 04:58 Hgb O2 Saturation 96.7 % (95.0-98.0) 05/17/18 04:58 Sodium 131.0 mmol/L (132-148) L 05/16/18 17:25 Chloride 96.0 mmol/L (98-107) L 05/16/18 17:25 Glucose 169 mg/dL (75-110) H 05/16/18 17:25 Lactate 1.1 mmol/L (0.7-2.1) 05/16/18 17:25 Vent Mode Bipap 05/17/18 04:58 Mechanical Rate 18 05/17/18 04:58 FiO2 50.0 % 05/17/18 04:58 Inspiratory BiPAP 14 05/17/18 04:58 Expiratory BiPAP 6 05/17/18 04:58 Crit Value Called To Sidney taylor 05/16/18 17:25 Crit Value Called By 23 05/16/18 17:25 Crit Value Read Back Y 05/16/18 17:25 Blood Gas Notified Time 1730 05/16/18 17:25 Sodium 135 mmol/l (132-148) 05/22/18 11:04 Potassium 4.3 MMOL/L (3.6-5.0) 05/22/18 11:04 Chloride 85 mmol/L (98-107) L 05/22/18 11:04 Carbon Dioxide 44 mmol/L (22-30) H* D 05/22/18 11:04 Anion Gap 10 (10-20) 05/22/18 11:04 BUN 17 mg/dl (9-20) 05/22/18 11:04 Creatinine 0.5 mg/dl (0.8-1.5) L 05/22/18 11:04 Est GFR ( Amer) > 60 05/22/18 11:04 Est GFR (Non-Af Amer) > 60 05/22/18 11:04 Random Glucose 145 mg/dL (75-110) H 05/22/18 11:04 Calcium 8.6 mg/dL (8.4-10.2) 05/22/18 11:04 Total Bilirubin 0.3 mg/dl (0.2-1.3) 05/17/18 04:55 AST 32 U/L (17-59) 05/17/18 04:55 ALT 23 U/L (21-72) 05/17/18 04:55 Alkaline Phosphatase 67 U/L (38-126) 05/17/18 04:55 Troponin I < 0.0120 ng/mL (0.00-0.120) 05/16/18 12:16 NT-Pro-B Natriuret Pep 1060 pg/ml (0-900) H 05/16/18 17:15 Total Protein 7.2 G/DL (6.3-8.2) 05/17/18 04:55 Albumin 3.5 g/dL (3.5-5.0) 05/17/18 04:55 Globulin 3.7 gm/dL (2.2-3.9) 05/17/18 04:55 Albumin/Globulin Ratio 1.0 (1.0-2.1) 05/17/18 04:55 Triglycerides 41 mg/DL (0-149) 05/17/18 04:55 Cholesterol 117 mg/dL (0-199) 05/17/18 04:55 LDL Cholesterol Direct 52 mg/dL (0-129) 05/17/18 04:55 HDL Cholesterol 42 MG/DL (30-70) 05/17/18 04:55 Thyroxine (T4) 4.96 ug/dl (5.5-11.0) L 05/17/18 04:55 TSH 3rd Generation 0.23 mIU/ML (0.46-4.68) L 05/17/18 04:55 Venous Blood Potassium 4.5 mmol/L (3.6-5.2) 05/16/18 17:25 Urine Color Yellow (YELLOW) 05/17/18 03:00 Urine Clarity Clear (Clear) 05/17/18 03:00 Urine pH 6.0 (5.0-8.0) 05/17/18 03:00 Ur Specific [place] 1.031 (1.003-1.030) H 05/17/18 03:00 Urine Protein Negative mg/dL (NEGATIVE) 05/17/18 03:00 Urine Glucose (UA) 50 mg/dL (NEGATIVE) 05/17/18 03:00 Urine Ketones Trace mg/dL (NEGATIVE) 05/17/18 03:00 Urine Blood Negative (NEGATIVE) 05/17/18 03:00 Urine Nitrate Negative (NEGATIVE) 05/17/18 03:00 Urine Bilirubin Negative (NEGATIVE) 05/17/18 03:00 Urine Urobilinogen 0.2-1.0 mg/dL (0.2-1.0) 05/17/18 03:00 Ur Leukocyte Esterase Neg [place]/uL (Negative) 05/17/18 03:00 Urine RBC (Auto) 1 /hpf (0-3) 05/17/18 03:00 Urine Microscopic WBC 1 /hpf (0-5) 05/17/18 03:00 Ur Squamous Epith Cells < 1 /hpf (0-5) 05/17/18 03:00 Influenza Typ A,B (EIA) Negative for flu a/b (NEGATIVE) 05/16/18 13:30 Discharge Exam - Head Exam Head Exam: NORMAL INSPECTION Discharge Plan - Discharge Medications Prescriptions: Amoxicillin/Clavulanate [Augmentin 875 MG-125 MG] 1 tab PO Q12 #10 tab Methylprednisolone [Medrol Dose Pack (21 tabs)] 4 mg PO DAILY #21 mg Promethazine/Codeine [Phenergan/Codeine Oral Syrup] 5 ml PO Q4 PRN #1 bottle PRN Reason: Cough - Follow Up Plan Condition: STABLE Disposition: HOME/ ROUTINE Instructions: Pneumonia, Adult (DC), Exacerbation of COPD (DC) Additional Instructions: follow up appt with on monday05/22/18 at 4:00pm Referrals: Ravi Torres MD [Family Provider] -
--- NOTE | 2018-05-22 13:22 | RAD ---
Date of service: 05/22/2018 PROCEDURE: CHEST RADIOGRAPH, 1 VIEW HISTORY: COPD Exacerbation COMPARISON: 05/16/2018 11/29/2017. FINDINGS: LUNGS: Chronic bronchiectatic changes bilaterally, right lung substantially more involved than left with volume loss. Compensatory hyperinflation left lung. PLEURA: No pneumothorax or pleural fluid seen. CARDIOVASCULAR: No aortic atherosclerotic calcification present. Normal. OSSEOUS STRUCTURES: No significant abnormalities. VISUALIZED UPPER ABDOMEN: Normal. OTHER FINDINGS: None. IMPRESSION: No active disease.No significant interval change compared to the prior examination(s).
--- NOTE | 2018-05-24 13:15 | PQF ---
PROVIDER RESPONSE TEXT: Chronic bronchiectasis. REVIEWER QUERY TEXT: Clarification of Clinical Diagnostic Findings Please clarify documentation of Acute Bronchiectasis: is this with or without exacerbation? OR: Other explanation of clinical findings Chest CT W/O Contrast:Stable, severe cystic bronchiectasis bilaterally. Sputum Culture: Gram Negative Bruce H and P: includes: cc: CXR:Increased opacity R base, may reflect developing PNA. Persistent extensive RUL Bronchiectasis, R upper hemithorax pleural effusion Assess includes: (2) Bronchiectasis Status: Acute Priority: High Plan: Continue BIPAP, F/U Blood C-S, f/u Chest CT, continue Vanco, Zosyn, Duoneb, Phenergan with Co, Solu-Medrol, Lovenox and rest of Tx. The patient's Clinical Indicators include: ---- Query created by: Xin Doan on 05/24/2018 1:11 PM Electronically signed by: Ravi Torres MD 05/24/2018 1:13 PM
--- NOTE | 2018-05-24 13:15 | PQF ---
PROVIDER RESPONSE TEXT: Pneumonia ruled out. REVIEWER QUERY TEXT: Pneumonia Specificity Pneumonia is documented in the ER Physician Documentation Report. Please specify the type of pneumoni a and the causative organism (includes probable or suspected) Such as: Type: -- Aspiration pneumonia (please also specify the aspirate) - (please specify cause) - Please indicate if the aspiration is postprocedure -- Bacterial (please document suspected or probable organism) -- Bronchopneumonia (please document suspected or probable organism) -- Interstitial pneumonia -- Organizing pneumonia / BOOP -- Pneumonia with influenza, milena flu, or H1N1 flu -- RSV -- Tuberculosis, pulmonary -- Viral -- Other, please specify The patient's Clinical Indicators include: XX Query created by: Juany Garcia on 05/24/2018 7:13 AM Electronically signed by: Ravi Torres MD 05/24/2018 1:13 PM
== END 2018-05-22 15:45 | disposition home or self-care (01) | DRG 192 ==
LOC: H.ER 11:20 → H.ERHOLD 16:39 → H.TEL 18:13
PROVIDERS: ADMIT Internal Medicine Pulmonary Disease; ATTEND Internal Medicine Pulmonary Disease
DX: J44.1 Chronic obstructive pulmonary disease with (acute) exacerbation (principal); I25.2 Old myocardial infarction; I27.20 Pulmonary hypertension, unspecified; Z86.11 Personal history of tuberculosis; Z86.711 Personal history of pulmonary embolism; Z86.73 Personal history of transient ischemic attack (TIA), and cerebral infarction without residual deficits; Z87.891 Personal history of nicotine dependence; Z99.81 Dependence on supplemental oxygen; Z79.51 Long term (current) use of inhaled steroids; J47.9 Bronchiectasis, uncomplicated